=== PATIENT | male | born 1985 | race Caucasian/White ===

== ENCOUNTER 2023-10-11 10:27 | Inpatient (IN) ==
[2023-10-11 11:04] LABS: Basophils # (auto) 0.07 K/uL (0.00-0.20); Basophils % (auto) 0.8 %; Eosinophils # (auto) 0.17 K/uL (0.00-0.50); Eosinophils % (auto) 1.9 %; Hematocrit (blood only) 41.6 % (42.0-52.0); Hemoglobin 14.1 g/dl (14.0-18.0); Immature Granulocytes # (auto) 0.04 K/uL (0.01-0.20); Immature Granulocytes % (auto) 0.4 %; Lymphocytes # (auto) 1.71 K/uL (1.20-3.40); Lymphocytes % (auto) 18.9 %; Mean Corpuscular Hemoglobin 28.5 pg (25.0-34.0); Mean Corpuscular Hgb Conc 33.9 g/dL (32.0-36.0); Mean Corpuscular Volume 84.2 fL (80.0-100.0); Mean Platelet Volume 10.1 fL (9.4-12.4); Monocytes # (auto) 0.65 K/uL (0.11-0.59); Monocytes % (auto) 7.2 %; Neutrophils # (auto) 6.41 K/uL (1.40-6.50); Neutrophils % (auto) 70.8 %; Platelet Count 244 K/uL (130-400); RDW Coefficient of Variation 12.5 % (11.5-14.5); RDW Standard Deviation 37.5 fL (36.4-46.3); Red Blood Count 4.94 M/uL (4.70-6.10); White Blood Count 9.05 K/ul (4.8-10.8)
--- NOTE | 2023-10-11 11:09 | Emergency Department Note ---
Impression & Plan Chest pain, Bilateral pulmonary embolism ED Provider Note HISTORY OF PRESENT ILLNESS: Patient is a 38-year-old male presenting with left-sided chest pain. Patient reports that he developed left-sided chest pain yesterday. Describes the pain as a sharp sensation and "it feels like someone stabbing him with a knife." He states that he cannot take a deep breath without having excruciating amounts of pain. He is on Xarelto for previous history of DVT, but states that he missed 3 doses earlier this week secondary to not getting his prescription refilled in time. He states that he restarted his Xarelto as of yesterday. Denies any cough or fevers. Reports shortness of breath with the chest pain. ROS: as above PHYSICAL EXAM: Constitutional: Patient appears in no acute distress. HENT: Head: Normocephalic and atraumatic. Eyes: EOMI, PERRL Mouth/Throat: Mucous membranes moist. Neck: Trachea midline. Neck supple. Cardiovascular: RRR, No murmurs, rubs or gallops. Intact distal pulses. Pulmonary/Chest: No respiratory distress. Breath sounds clear and equal bilaterally. No wheezes or rales. Abdominal: Abdomen soft, no tenderness, rebound or guarding. Musculoskeletal: No edema, tenderness or deformity noted. Skin: Warm and dry. No rash, erythema, pallor or cyanosis Psychiatric: Appropriate mood and affect for situation. Neurological: Alert and keenly responsive. CN II-XII grossly intact, moving all extremities equally and fully. MDM: - Vitals signs showed tachycardia - History obtained via patient. Patient presents with sided chest pain. Patient reports he developed left-sided chest pain starting yesterday. He describes it as a sharp sensation. He reports it hurts when he takes a deep breath. He is on Xarelto for a previous history of DVT, but states he missed 3 doses earlier in this week. Denies any cough or fevers. - Chronic conditions affecting care: hx of DVT - Differential diagnoses include, but are not limited to: Acute coronary syndrome; pulmonary embolism; dissection; tension pneumothorax; esophageal rupture; pneumonia - Order placed for continuous cardiac monitoring. At this time, monitor showed rate of 94 bpm with normal sinus rhythm, per my interpretation. - External medical records reviewed. Orthopedic visit noted 02/14/2022 was reviewed. Patient had left rotator cuff surgical repair at that time. - EKG reviewed by myself showed normal sinus rhythm. Rate 93 bpm. QTc 410. No acute ischemic changes - Laboratory workup interpreted by myself showed normal WBC; stable electrolytes; normal troponin; elevated dimer (4130); normal lipase - CXR negative for pneumonia, per my interpretation - CT PE showed multiple bilateral segmental and subsegmental PEs. No evidence of right heart strain. Noted to have an infarct within the lingula - Heparin bolus and drip ordered - Discussion was had with social welfare administrator about patient's case and need for admission - Hospitalist consulted for admission - [facility] I provided 34 minutes of critical care time to this patient's care outside of billable procedures. ASSESSMENT AND PLAN: Diagnosis: chest pain; bilateral pulmonary emboli Plan: admit Past Med/Surg History Medical History (Updated 10/11/23 @ 13:30 by Candy Sparks MD) History of DVT (deep vein thrombosis) Heartburn occasional. no meds Deep vein thrombosis 09/2020 left leg, went off on his own, developed another DVT x2 in the left ankle. takes xarelto daily. follows with PCP. no further testing was done to rule out blood clotting disorder. Surgical History (Updated 06/28/22 @ 15:36 by Armand Pino DO) Status post left rotator cuff repair 10-20-21 L Shoulder Arthroscopy with Extensive Debridement, Acromioplasty and Rotator Cuff Repair(Left) - Braden Simmons DO. [facility] History of tonsillectomy Family History Mother Deep vein thrombosis Brother Deep vein thrombosis Denies family history of Ovarian cancer Prostate cancer Diabetes Myocardial infarction Breast cancer Colorectal cancer Hypertension Social History (Updated 06/28/22 @ 15:38 by Belinda Mojica LPN) Smoking Status: Never smoker Second Hand Exposure: No; Do You Dip or Chew Tobacco: No; Hx Alcohol Use: Yes Alcohol type: wine Alcohol Intake Frequency: Monthly or Less Hx Substance Use: No Preferred Language: Slovak Communication Ability: Effective Visual Impairment: Limited Hearing Ability: Normal Net Mender Required: No Beliefs That Will Affect Care: None marital status: Current Living Situation: Family current occupational status: employed 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; 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 How many Children do You have: 3 Feels Safe at Home: Yes Childhood Exposure to Second-Hand Smoke: No Diet: regular caffeine: Yes (coffee or soda) during the past year weight has: remained stable Dental Care, Regularly: Yes Physical Activity Frequency: Daily Seatbelt Use: sometimes Sunscreen Use: Yes Do you think of yourself as: straight/heterosexual Gender Identity: Male Assistive Devices: Glasses Allergies Allergies Allergy/AdvReac Type Severity Reaction Status Date / Time No Known Allergies Allergy Unknown Verified 10/11/23 12:30 Home Meds Home Medications Medication Instructions Recorded Confirmed acetaminophen 500 mg tablet 1,000 mg PO Q6H PRN Pain 10/11/23 10/11/23 (Tylenol Extra Strength) omeprazole magnesium 20 mg 20 mg PO DAILY PRN Acid Reflux 10/11/23 10/11/23 tablet,delayed release (Prilosec OTC) Previous Rx's Medication Instructions Recorded rivaroxaban 10 mg tablet (Xarelto) 10 mg PO DAILY #90 tabs 11/23/22 Results & Data (ED) Vital Signs Vital Signs - 24 hr 10/11/23 10:28 10/11/23 10:38 10/11/23 10:38 Temperature 36.9 C Temperature Source Temporal Artery Scan Pulse Rate 95 H Respiratory Rate 18 Respiratory Effort / Characteristics Non-Labored Spontaneous Short of Breath SOB on Exertion Respiratory Depth Normal Respiratory Pattern Regular Blood Pressure 138/65 Blood Pressure Mean 89 Pulse Oximetry 98 97 Oxygen Delivery Method Room Air Room Air Sepsis Recent Fever Within 48 Hours No Sepsis New/Unexplained Change in Mental Status N/A Sepsis Action Taken by Nursing No Action Required 10/11/23 10:39 10/11/23 10:40 10/11/23 13:11 Temperature Temperature Source Pulse Rate 97 H 89 94 H Respiratory Rate 22 18 Respiratory Effort / Characteristics Respiratory Depth Respiratory Pattern Blood Pressure 126/84 125/76 Blood Pressure Mean 98 92 Pulse Oximetry 99 97 Oxygen Delivery Method Room Air Room Air Sepsis Recent Fever Within 48 Hours Sepsis New/Unexplained Change in Mental Status Sepsis Action Taken by Nursing Laboratory Data 10/11/23 10:40 10/11/23 10:40 Lab Results 10/11/23 Range/Units 10:40 WBC 9.05 (4.8-10.8) K/ul RBC 4.94 (4.70-6.10) M/uL Hgb 14.1 (14.0-18.0) g/dl Hct 41.6 L (42.0-52.0) % MCV 84.2 (80.0-100.0) fL MCH 28.5 (25.0-34.0) pg MCHC 33.9 (32.0-36.0) g/dL RDW Std Deviation 37.5 (36.4-46.3) fL RDW Coeff of Sary 12.5 (11.5-14.5) % Plt Count 244 (130-400) K/uL MPV 10.1 (9.4-12.4) fL Immature Gran % (Auto) 0.4 % Neut % (Auto) 70.8 % Lymph % (Auto) 18.9 % [place] % (Auto) 7.2 % Eos % (Auto) 1.9 % Baso % (Auto) 0.8 % Neut # (Auto) 6.41 (1.40-6.50) K/uL Lymph # (Auto) 1.71 (1.20-3.40) K/uL [place] # (Auto) 0.65 H (0.11-0.59) K/uL Eos # (Auto) 0.17 (0.00-0.50) K/uL Baso # (Auto) 0.07 (0.00-0.20) K/uL Immature Gran # (Auto) 0.04 (0.01-0.20) K/uL D-Dimer 4130 H* (0-500) ug/L FEU Sodium 137 (136-145) mmol/L Potassium 3.9 (3.5-5.1) mmol/L Chloride 103 (98-107) mmol/L Carbon Dioxide 26 (21-32) mmol/L Anion Gap 8 (3-11) BUN 15 (6-23) mg/dl Creatinine 1.04 (0.6-1.4) mg/dl Est Cr Clr Drug Dosing Not Reportable Est GFR ( Amer) 106.6 ml/min Est GFR (Non-Af Amer) 91.9 ml/min BUN/Creatinine Ratio 14.4 (10-20) Glucose 88 (70-99(Fasting)) mg/dl Calcium 9.5 (8.6-10.3) mg/dl Total Bilirubin 0.9 (0.2-1.0) mg/dl AST 18 (13-39) U/L ALT 18 (7-52) U/L Alkaline Phosphatase 84 (34-104) U/L Troponin I High Sens 3.7 (0-20) pg/ml Total Protein 7.8 (6.0-8.3) gm/dl Albumin 4.5 (3.4-5.0) gm/dl Globulin 3.3 (2.5-4.0) gm/dl Albumin/Globulin Ratio 1.4 (0.9-2) Lipase 15 (11-82) U/L Administered Medications Heparin Sodium/Dextrose (Heparin Sodium/Dextrose) 25,000 units in 500 mls @ 32 mls/hr IV .[id number] [facility]; Protocol Stop: 11/10/23 12:59 Last Admin: 10/11/23 13:07 Dose: 1,600 units/hr, 32 mls/hr Documented By: GAMA Co-signed By: ROSARIO Discontinued Medications Heparin Sodium (Porcine) (Heparin Sod (Porcine) 1000 Unit/Ml) 7,000 units IV NOW ONE Stop: 10/11/23 13:16 Last Admin: 10/11/23 13:07 Dose: 7,000 units Documented By: GAMA Co-signed By: ROSARIO Ioversol (Optiray 320 125ml) 75 ml IV ONCE ONE Stop: 10/11/23 12:03 Last Admin: 10/11/23 12:09 Dose: 75 ml Documented By: ALEJANDRO Imaging Data Radiologist's Impression: Chest X-Ray 10/11/23 10:44 XR chest 1V portable CLINICAL HISTORY: Chest pain, nonspecific TECHNIQUE: Single frontal radiograph of the chest was obtained. Comparison: None available at the time of this dictation. FINDINGS: No lines and tubes are seen. The cardiomediastinal silhouette is normal. The lungs are clear. No evidence of pleural effusion or pneumothorax. IMPRESSION: No acute chest disease. ACT 112: Negative or not required by law. Electronically signed by: Garry Fontanez M.D. 10/11/2023 11:06 AM Chest CTA 10/11/23 11:49 CT ANGIOGRAPHY OF THE CHEST, PULMONARY EMBOLUS PROTOCOL CLINICAL HISTORY: Left-sided chest pain. Evaluate for pulmonary embolus. COMPARISON STUDY: Chest radiograph performed earlier today. TECHNIQUE: Following IV administration of 75 mL of Optiray, helical axial images of the chest were obtained utilizing the pulmonary embolus protocol. Maximal intensity projections and sagittal and coronal reformats were viewed on an independent 3D workstation. IV contrast was administered without complication. Automated exposure control was utilized for the study. A dose lowering technique was utilized adhering to the principles of ALARA. FINDINGS: There are multiple segmental and subsegmental pulmonary emboli within both lungs. There is an associated 3.7 x 2.8 cm subpleural lingular opacity consistent with a pulmonary infarct. A small left pleural effusion is noted. Lower lobe opacities favor atelectasis although additional pulmonary infarcts would be difficult to exclude. No saddle pulmonary embolus is identified. No CT evidence for right heart strain. Heart is mildly enlarged. There is no pericardial effusion. There is no thoracic lymphadenopathy. Multiple small solid noncalcified pulmonary nodules are present. These include a 6 mm lingular nodule on image 66 of 207, a 6 mm right lower lobe nodule on image 81 and a 4 mm right lower lobe nodule on image 77. Central airways are patent. IMPRESSION: 1. Multiple bilateral segmental and subsegmental pulmonary emboli. No CT evidence for right heart strain. 3.7 x 2.8 cm infarct within the lingula. Small left pleural effusion. 2. Multiple solid noncalcified pulmonary nodules which measure up to 6 mm. These are indeterminate and a follow-up chest CT in 6 months to ensure stability is recommended. ACT 112: Positive. There are findings on this exam that require communication between the performing entity and the patient following Patient Test Result Information Act ([place] Act 112) guidelines. Electronically signed by: Kurtis Garcia M.D. 10/11/2023 12:32 PM Discharge Plan Visit Data Chief Complaint: Chest Pain Stated Complaint: CHEST PAIN ED Provider: Candy Sparks Discharge Problem: Chest pain, Bilateral pulmonary embolism Forms Stand Alone Forms: [employer] Prescriptions Prescriptions: No Action Xarelto 10 mg tablet 10 mg PO DAILY Qty: 90 3RF acetaminophen [Tylenol Extra Strength] 500 mg Tablet 1,000 mg PO Q6H PRN (Reason: Pain) omeprazole magnesium [Prilosec OTC] 20 mg Tablet,Delayed Release (Dr/Ec) 20 mg PO DAILY PRN (Reason: Acid Reflux) Referrals Referrals: Armand Pino DO [Primary Care Provider] -
[2023-10-11 11:18] LABS: Alanine Aminotransferase 18 U/L (7-52); Albumin Globulin Ratio 1.4 (0.9-2); Albumin Level 4.5 gm/dl (3.4-5.0); Alkaline Phosphatase 84 U/L (34-104); Anion Gap 8 (3-11); Aspartate Aminotransferase 18 U/L (13-39); BUN Creatinine Ratio 14.4 (10-20); Bilirubin,Total 0.9 mg/dl (0.2-1.0); Blood Urea Nitrogen 15 mg/dl (6-23); Calcium 9.5 mg/dl (8.6-10.3); Carbon Dioxide 26 mmol/L (21-32); Chloride 103 mmol/L (98-107); Est GFR (African American) 106.6 ml/min; Est GFR (Non-African American) 91.9 ml/min; Globulin 3.3 gm/dl (2.5-4.0); Glucose 88 mg/dl (70-99(Fasting)); Lipase 15 U/L (11-82); Potassium 3.9 mmol/L (3.5-5.1); Sodium 137 mmol/L (136-145); Total Protein 7.8 gm/dl (6.0-8.3)
[2023-10-11 11:24] LABS: Troponin I High Sensitivity 3.7 pg/ml (0-20)
[2023-10-11 11:49] LABS: D Dimer 4130 ug/L FEU (0-500)
[2023-10-11] MEDS ORDERED: OPTIRAY 320 125ml IV ONE (12:02)
--- NOTE | 2023-10-11 12:35 | CT Scan Report ---
CT ANGIOGRAPHY OF THE CHEST, PULMONARY EMBOLUS PROTOCOL CLINICAL HISTORY: Left-sided chest pain. Evaluate for pulmonary embolus. COMPARISON STUDY: Chest radiograph performed earlier today. TECHNIQUE: Following IV administration of 75 mL of Optiray, helical axial images of the chest were ob tained utilizing the pulmonary embolus protocol. Maximal intensity projections and sagittal and letitia nal reformats were viewed on an independent 3D workstation. IV contrast was administered without com plication. Automated exposure control was utilized for the study. A dose lowering technique was uti lized adhering to the principles of ALARA. FINDINGS: There are multiple segmental and subsegmental pulmonary emboli within both lungs. There is an associated 3.7 x 2.8 cm subpleural lingular opacity consistent with a pulmonary infarct. A small left pleural effusion is noted. Lower lobe opacities favor atelectasis although additional pulmonary infarcts would be difficult to exclude. No saddle pulmonary embolus is identified. No CT evidence for right heart strain. Heart is mildly enlarged. There is no pericardial effusion. There is no thoracic lymphadenopathy. Multiple small solid noncalcified pulmonary nodules are present. These include a 6 mm lingular nodule on image 66 of 207, a 6 mm right lower lobe nodule on image 81 and a 4 mm right lo wer lobe nodule on image 77. Central airways are patent. IMPRESSION: 1. Multiple bilateral segmental and subsegmental pulmonary emboli. No CT evidence for right heart str ain. 3.7 x 2.8 cm infarct within the lingula. Small left pleural effusion. 2. Multiple solid noncalcified pulmonary nodules which measure up to 6 mm. These are indeterminate an d a follow-up chest CT in 6 months to ensure stability is recommended. ACT 112: Positive. There are findings on this exam that require communication between the performing entity and the patient following Patient Test Result Information Act ([place] Act 112) guidelines. Electronically signed by: Kurtis Garcia M.D. 10/11/2023 12:32 PM
[2023-10-11] MEDS ORDERED: Heparin IV Adult Wt-Based Standard w/ INITIAL Bolus Protocol IV STA (12:39)
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
[2023-10-11] MEDS ORDERED: HEPARIN SOD (PORCINE) 1000 UNIT/ML IV ONE ×2 (12:55→13:15)
[2023-10-11] MEDS ORDERED: HEPARIN SODIUM/DEXTROSE 25,000 UNITS/500 ML BAG IV SCH (13:00)
[2023-10-11 14:13] LABS: INR 1.1 (0.9-1.1); Partial Thromboplastin Ratio 1.3; Partial Thromboplastin Time 37 Seconds (21-31); Prothrombin Time 11.9 Seconds (9.0-12.0)
--- NOTE | 2023-10-11 14:29 | Electrocardiogram Report ---
Test Reason : Blood Pressure : / mmHG Vent. Rate : 093 BPM Atrial Rate : 093 BPM P-R Int : 164 ms QRS Dur : 072 ms QT Int : 330 ms P-R-T Axes : 051 008 026 degrees QTc Int : 410 ms Normal sinus rhythm Normal ECG No previous ECGs available Confirmed by Alejandro Grayson ([id number]) on 10/11/2023 2:29:46 PM Referred By: REFERRED SELF Confirmed By:Alejandro Grayson
[2023-10-11] MEDS ORDERED: ACETAMINOPHEN 325 MG TAB PO PRN (15:26)
--- OUTSIDE RECORDS SUMMARY | 2023-10-11 16:13 | External Medical Summary | Summary of Care ---
Author Name Unknown Organization [facility] Address [address] [place] [address] Phone [phone] Care Team Providers Care Entrepreneurship Program Director Name Role Phone Dior Davis MD Primary Care Provider [phone] Reason for Visit * Reason Onset Date Comments Order Request 09/21/2023 Encounter Details Date Type Department Care Team (Late st Contact Info) Description 09/21/2023 Telephone Orthopaedics, [place] [address] [place], [place] [id number] Christos Collins MD [address] [place] [address] Order Request Allergies No known active allergiesdocumented as of this encounter (statuses as of 09/24/2023) Medications Medication Sig Dispensed Refills Start Date End Date Status Rivaroxaban 10 MG Oral Tablet (Xarelto) Take 1 Tablet by mouth in the morning. 0 Active Carisoprodol 350 MG Oral Tablet (Soma) Take 1 Tablet by mouth 3 times a day as needed for Muscle spasms. 20 Tablet 0 09/03/2023 Active Additional Information Patient not taking.Reported on 09/18/2023 Docusate Sodium 100 MG Oral Capsule (Colace) Take 1 Capsule by mouth in the morning and 1 Capsule before bedtime. 10 Capsule 0 09/03/2023 Active Additional Information Patient not taking.Reported on 09/18/2023 oxyCODONE HCl 10 MG Oral Tablet (Roxicodone) Take 1 whole tablet by mouth every 6 hours as needed for severe pain (or take one-half tablet for moderate pain). 20 Tablet 0 09/03/2023 Active Additional Information Patient not taking.Reported on 09/18/2023 documented as of this encounter (statuses as of 09/24/2023) Active Problems Problem Noted Date Diagnosed Date Closed fracture of left distal tibia 08/30/2023 documented as of this encounter (statuses as of 09/24/2023) Social History Tobacco Use Types Packs/Day Years Used Date Smoking Tobacco: Never Smokeless Tobacco: Never Alcohol Use Standard Drinks/Week Comments Not Currently 0 (1 standard drink = 0.6 oz pur e alcohol) Sex and Gender Information Value Date Recorded Sex Assigned at Not on file Gender Identity Not on file Sexual Orientation Not on file Job Start Date Occupation Industry Not on file Not on file Not on file documented as of this encounter Functional Status Functional Status Response Date of Assess ment Do you have serious difficul ty walking or climbing stairs? (5 years old or older) No 08/30/2023 documented as of this encounter Miscellaneous Notes * Telephone Encounter - Alysia Benjamin RN - 09/24/2023 8:48 AM EST Handicp placard filled out and given to Bhakti. Please see if patient wants this mailed or want to pick it up. We do not order handicap scooters. If patient is not doing well with the crutches we can order him a walker. * Telephone Encounter - Sarita Nieves OSA - 09/21/2023 12:37 PM EST Pt calling asking if it would be possible to get handicap placard. Also asking for handicap scooterprescription. Please advise. documented in this encounter Plan of Treatment Upcoming Encounters Date Type Department Care Team (Late st Contact Info) Description 10/09/2023 7:45 AM EST Office Visit Orthopaedics, [address] [place] [address] Christos Collins MD [address] [place] [address] Health Maintenance Due Date Last Done Comments Hepatitis B (1 of 3 - 3-dose series) 1987 COVID-19 Vaccine (#1) 1987 Depression Screening 1999 HIV Screening 2002 Hepatitis C Screening 2005 DTaP,Tdap,and Td Vaccines (1 - Tdap) 2006 Influenza Vaccine (FLU shot) (#1) 2023 Diabetes Screening 09/03/2026 09/03/2023, 1 , 09/01/2023, Additional history exists GARDASIL-HPV IMMUNIZATION SERIES Aged Out No longer eligible based on patient's age to complete this topic MENINGOCOCCAL (MENACTRA/MENVEO) Aged Out No longer eligible based on patient's age to complete this topic Pneumococcal Vaccine: Pediatrics (0 to 5 Years) and At-Risk Patients (6 to 64 Years) Aged Out No longer eligible based on patient's age to complete this topic documented as of this encounter Medical Devices Implanted Type Area Esters And Emulsifiers Supervisor Device Identifier Shelf Expiration Date Model / Serial / Lot Screw T2 Alpha Lock 5x47.5mm - [id number] Implanted:Qty: 1 on 08/31/2023 by Christos Collins MD at [facility] [place] Left: Ankle JA : TRAUMA 04/04/2033 [id number] / / [id number] documented as of this encounter Advance Directives Latest Code Status on File Code Status Date Activated Date Inactivated Comments Full Code 08/30/2023 12:14 PM 09/03/2023 6:45 PM Th is order reflects the patients wishes and were consensually agreed upon. Question Answer Comments Discussion of Advance Directives occurred with: Patient Care Teams Entrepreneurship Program Director Relationship Specialty Start Date End Date Dior Davis MD [address] [place] [address] PCP - General Family Medicine 09/10/23 documented as of this encounter
--- OUTSIDE RECORDS SUMMARY | 2023-10-11 16:13 | External Medical Summary | Summary of Care ---
Author Name Unknown Organization [facility] Address [address] [place] [address] Phone [phone] Care Team Providers Care Cardiac Monitor Technician Name Role Phone Dior Davis MD Primary Care Provider [phone] Reason for Visit * Reason Onset Date Comments Order Request 09/21/2023 Encounter Details Date Type Department Care Team (Late st Contact Info) Description 09/21/2023 Telephone Orthopaedics, [place] [address], [place] [phone] Christos Collins MD [address] [place] [address] Order Request Allergies No known [...] encounter Miscellaneous Notes * Telephone Encounter - Bhakti Mai - 09/24/2023 11:27 AM EST Form mailed * Telephone Encounter - Sarita Nieves OSA - 09/24/2023 10:39 AM EST Pt would like to have the completed form mailed. [address] [place] [id number] Pt states he has a walker. [place] way [place] * Telephone Encounter - Alysia Benjamin RN [...] 10/09/2023 7:45 AM EST Office Visit Orthopaedics, [place] [address] [place] [address] Christos Collins MD [address] [place] [address] Health Maintenance Due Date Last Done Comments [...] this encounter Medical Devices Implanted Type Area Dog Groomer Device Identifier Shelf Expiration Date Model / Serial / Lot Screw T2 Alpha Lock 5x47.5mm - [id number] Implanted:Qty: 1 on 08/31/2023 by Christos Collins MD at [facility] Left: Ankle JA : TRAUMA 04/04/2033 [id number] / / [id number] documented as of this encounter Advance Directives Latest Code Status on File Code Status Date Activated Date Inactivated Comments Full Code 08/30/2023 12:14 PM 09/03/2023 6:45 PM Th is order reflects the patients wishes and were consensually agreed upon. Question Answer Comments Discussion of Advance Directives occurred with: Patient Care Teams Cardiac Monitor Technician Relationship Specialty Start Date End Date Dior Davis MD [address] [place] [address] [place] [id number] PCP - General Family Medicine 09/10/23 documented as of this encounter
--- OUTSIDE RECORDS SUMMARY | 2023-10-11 16:13 | External Medical Summary | Summary of Care ---
Author Name Unknown Organization [facility] Address [address] [place] [address] Phone [phone] Care Team Providers Care Ground Wirer Name Role Phone Dior Davis MD Primary Care Provider [phone] Reason for Referral * Evaluate & Treat - Unlimited Visits (Within 10 days (routine)) - Pending Review Specialty Diagnoses / Procedures Referred By Charleen szymanski Referred To Contact Physical Therapy / Physical Medicine And Rehab Diagnoses Closed fracture of distal end of left tibia, unspecified fracture morphology, initial encounter Pineda Gomes MD [address] [place] [address] Referral ID Status Reason Start Date Expiration Date Visits Requested Visits Authorized [id number] Pending Review Specialty Services Required 10/09/[phone] Question Answer Referral Priority Within 10 days (routine) Where should this appointment be scheduled? [facility] Comments Please see and evaluate patient. Patient is 6 weeks out from tibia fracture fixation Needs to work on gait training, aerobic conditioning, strengthening ankle, and knee ROM. May use elliptical and exercise bike He will be partial weight bearign at 30-40 lbs for the first week and may advance weight bearing 20 lbs each week. Goal to be WBAT in 4-6 weeks Reason for Visit * Reason Comments Follow Up Left tibia fracture Encounter Details Date Type Department Care Team (Late st Contact Info) Description 10/09/2023 7:45 AM EST Office Visit Orthopaedics, [place] [address] [place] [address] Christos Collins MD [address] [place] [address] Closed fracture of distal end of left tibia, unspecified fracture morphology, initial encounter* Allergies No known active allergiesdocumented as of this encounter (statuses as of 10/09/2023) Medications Medication Sig Dispensed Refills Start Date [...] as of this encounter (statuses as of 10/09/2023) Active Problems Problem Noted Date Diagnosed Date Closed fracture of left distal tibia 08/30/2023 documented as of this encounter (statuses as of 10/09/2023) Social History Tobacco Use Types Packs/Day Years Used Date Smoking Tobacco: Never Smokeless Tobacco: Never Tobacco Cessation:Counseling Given: Not Answered Alcohol Use Standard Drinks/Week Comments Yes 0 (1 standard drink = 0.6 oz pur e alcohol) soc Sex and Gender Information Value Date Recorded [...] No 08/30/2023 documented as of this encounter Progress Notes * Pineda Gomes MD - 10/09/2023 8:24 AM EST Please see Dr. Collins's dictation for documentation on this encounter. Pineda Gomes MD [phone] 10/09/2023 * Christos Collins MD - 10/09/2023 8:23 AM EST Aditya returns for follow-up. He is now about 6 weeks out from IM nailing of his distal 3rd comminuted tibial shaft fracture with an intra-articular distal split. Incisions are all well healed he hasabout 10 of plantar flexion 10-12 of dorsiflexion full extension of the knee flexion of the knee to about 120. We got new x-rays today which I viewed and interpreted. AP lateral of left tibia andfibula reveal a locked intramedullary nail for a comminuted distal 3rd tibial shaft fracture. In addition there are 2 anterior to posterior independent screws for intra-articular extension. There is no displacement the level of the joint alignment is unchanged early callus formation is noted in allhardware is intact. I think overall Aditya looks terrific we are going to write for him to begin partial weight-bearingadvancing to weight-bearing as tolerated over the next 4-6 weeks with aerobic conditioning strengthening and gait training. We will see him back in 6-8 weeks with follow-up radiographs AP lateral of the left tibia and fibula centered on the distal 1/3 documented in this encounter Plan of Treatment Upcoming Encounters Date Type Department Care Team (Late st Contact Info) Description 11/27/2023 7:30 AM EST Office Visit Orthopaedics, [place] [address] [place] [address] Christos Collins MD [address] [place] [address] Pending Results Name Type Priority Associated Diagnoses Date /Time XR TIB/FIB 2 VIEWS Medical Imaging Routine Closed fracture of distal end of left tibia, unspecified fracture morphology, initial encounter 10/09/2023 8:03 AM EST XR ANKLE 3 OR MORE VIEWS Medical Imaging Routine Closed fracture of distal end of left tibia, unspecified fracture morphology, initial encounter 10/09/2023 8:03 AM EST Scheduled Referrals Name Type Priority Associated Diagnoses Orde r Schedule PHYSICAL THERAPY REFERRAL OP Referral Within 10 days (routine) Closed fracture of distal end of left tibia, unspecified fracture morphology, initial encounter Ordered: 10/09/2023 Health Maintenance Due Date Last Done Comments [...] this encounter Medical Devices Implanted Type Area Financial Supervisor Device Identifier Shelf Expiration Date Model / Serial / Lot Screw T2 Alpha Lock 5x47.5mm - [id number] Implanted:Qty: 1 on 08/31/2023 by Christos Collins MD at [facility] Left: Ankle JA : TRAUMA 04/04/2033 2360-5047S / / [id number] documented as of this encounter Visit Diagnoses Diagnosis Closed fracture of distal end of left tibia, unspecified fracture morphology, initial encounter- Primary documented in this encounter Advance Directives Latest Code Status on File Code Status Date Activated Date Inactivated Comments Full Code 08/30/2023 12:14 PM 09/03/2023 6:45 PM Th is order reflects the patients wishes and were consensually agreed upon. Question Answer Comments Discussion of Advance Directives occurred with: Patient Care Teams Ground Wirer Relationship Specialty Start Date End Date Dior Davis MD [address] [place] [address] [place] [address] PCP - General Family Medicine 09/10/23 documented as of this encounter
--- OUTSIDE RECORDS SUMMARY | 2023-10-11 16:13 | External Medical Summary | Summary of Care ---
Author Name Unknown Organization [facility] Address [address] [place] [address] Phone [phone] Care Team Providers Care Sales And Events Coordinator Name Role Phone Dior Davis MD Primary Care Provider [phone] Reason for Visit * Reason Onset Date Comments Order Request 09/21/2023 Encounter Details Date Type Department Care Team (Late st Contact Info) Description 09/21/2023 Telephone Orthopaedics, [place] [address] [place], [place] [id number] Christos Collins MD [address] [place] [address] Order Request Allergies No known active allergiesdocumented as of this encounter (statuses as of 09/21/2023) Medications Medication Sig Dispensed Refills Start Date [...] as of this encounter (statuses as of 09/21/2023) Active Problems Problem Noted Date Diagnosed Date Closed fracture of left distal tibia 08/30/2023 documented as of this encounter (statuses as of 09/21/2023) Social History Tobacco Use Types Packs/Day Years [...] encounter Miscellaneous Notes * Telephone Encounter - Sarita Nieves OSA - 09/21/2023 12:37 PM EST Pt calling asking if it would be possible to get handicap placard. Also asking for handicap scooterprescription. Please advise. documented in this encounter Plan of Treatment Upcoming Encounters Date Type Department Care Team (Late st Contact Info) Description 10/09/2023 7:45 AM EST Office Visit Orthopaedics, [place] [address] [place] [address] Christos Collins MD [address] [place] [address] Health Maintenance Due Date Last Done Comments [...] this encounter Medical Devices Implanted Type Area Freelance Makeup Artist Device Identifier Shelf Expiration Date Model / Serial / Lot Screw T2 Alpha Lock 5x47.5mm - [id number] Implanted:Qty: 1 on 08/31/2023 by Christos Collins MD at [facility] Left: Ankle JA : TRAUMA 04/04/2033 2360-5047S / / [id number] documented as of this encounter Advance Directives Latest Code Status on File Code Status Date Activated Date Inactivated Comments Full Code 08/30/2023 12:14 PM 09/03/2023 6:45 PM Th is order reflects the patients wishes and were consensually agreed upon. Question Answer Comments Discussion of Advance Directives occurred with: Patient Care Teams Sales And Events Coordinator Relationship Specialty Start Date End Date Dior Davis MD [address] [place] [address] [place] [address] PCP - General Family Medicine 09/10/23 documented as of this encounter
--- OUTSIDE RECORDS SUMMARY | 2023-10-11 16:13 | External Medical Summary | Summary of Care ---
Author Name Unknown Organization [facility] Address [address] [place] [address] Phone [phone] Care Team Providers Care Production Control Technologist Name Role Phone Dior Davis MD Primary Care Provider [phone] Reason for Visit * Reason Onset Date Comments Hospital Follow-Up 09/10/2023 Encounter Details Date Type Department Care Team (Late st Contact Info) Description 09/10/2023 Telephone General Surgery, [place] [address], [place] [phone] Mariela Cortes RN [address] [place] [address] Hospital Follow-Up Allergies No known active allergiesdocumented as of this encounter (statuses as of 09/10/2023) Medications Medication Sig Dispensed Refills Start Date End Date Status Rivaroxaban 10 MG Oral Tablet (Xarelto) Take 1 Tablet by mouth in the morning. 0 Active Carisoprodol 350 MG Oral Tablet (Soma) Take 1 Tablet by mouth 3 times a day as needed for Muscle spasms. 20 Tablet 0 09/03/2023 Active Docusate Sodium 100 MG Oral Capsule (Colace) Take 1 Capsule by mouth in the morning and 1 Capsule before bedtime. 10 Capsule 0 09/03/2023 Active oxyCODONE HCl 10 MG Oral Tablet (Roxicodone) Take 1 whole tablet by mouth every 6 hours as needed for severe pain (or take one-half tablet for moderate pain). 20 Tablet 0 09/03/2023 Active documented as of this encounter (statuses as of 09/10/2023) Active Problems Problem Noted Date Diagnosed Date Closed fracture of left distal tibia 08/30/2023 documented as of this encounter (statuses as of 09/10/2023) Social History Tobacco Use Types Packs/Day Years [...] encounter Miscellaneous Notes * Telephone Encounter - Mariela Cortes RN - 09/10/2023 8:54 AM EST Patient returned my calls from last week. He is doing well, very little pain. He does get some random phantom type pains that come and go with no issues. He did have a slight mishap this am and fell onto the leg he injured. I provided him with the ortho clinic number to contact to discuss this and the fact that he cannot make the 09/18 appt. No other concerns at this time. Mariela Cortes RN, BSN, TCRN, CCRN-K Trauma C Unix Developer [facility] 09/10/2023 8:56 AM documented in this encounter Plan of Treatment Upcoming Encounters Date Type Department Care Team (Late st Contact Info) Description 09/18/2023 12:00 PM EST Office Visit Orthopaedics, [place] [address] [place] [address] Phillip Carmona PA-C [address] [place], [place] [phone] Health Maintenance Due Date Last Done Comments [...] this encounter Medical Devices Implanted Type Area Grain Merchandising Manager Device Identifier Shelf Expiration Date Model / Serial / Lot Screw T2 Alpha Lock 5x47.5mm - [id number] Implanted:Qty: 1 on 08/31/2023 by Christos Collins MD at [facility] Left: Ankle JA : TRAUMA 04/04/2033 2360-5047S / / [id number] documented as of this encounter Advance Directives Latest Code Status on File Code Status Date Activated Date Inactivated Comments Full Code 08/30/2023 12:14 PM 09/03/2023 6:45 PM Th is order reflects the patients wishes and were consensually agreed upon. Question Answer Comments Discussion of Advance Directives occurred with: Patient Care Teams Production Control Technologist Relationship Specialty Start Date End Date Dior Davis MD [address] [place], [place] [address] [address] PCP - General Family Medicine 09/10/23 documented as of this encounter
--- OUTSIDE RECORDS SUMMARY | 2023-10-11 16:13 | External Medical Summary | Summary of Care ---
Author Name Unknown Organization [facility] Address [address] [place] [address] Phone [phone] Care Team Providers Care Administrative Appeals Tribunal Member Name Role Phone Dior Davis MD Primary Care Provider [phone] Reason for Visit * Reason Onset Date Comments Hospital Follow-Up 09/10/2023 Advice 09/10/2023 Encounter Details Date Type Department Care Team (Late st Contact Info) Description 09/10/2023 Telephone General Surgery, [place] [address] [place], [place] [phone] Mariela Cortes RN [address] [place] [address] Hospital Follow-Up; Advice Allergies No known active allergiesdocumented as of this encounter (statuses as of 09/11/2023) Medications Medication Sig Dispensed Refills Start Date [...] as of this encounter (statuses as of 09/11/2023) Active Problems Problem Noted Date Diagnosed Date Closed fracture of left distal tibia 08/30/2023 documented as of this encounter (statuses as of 09/11/2023) Social History Tobacco Use Types Packs/Day Years [...] Telephone Encounter - Alysia Benjamin RN - 09/11/2023 7:39 AM EST It is too soon for patient to be schedule today. He needs to be at least 14 days post op to consider suture removal. He should keep his appointment on 09/18. If he cannot make arrangements to attend this appointment I will have figure out a different day to see him. * Telephone Encounter - Denise Feldman OSA - 09/10/2023 6:05 PM EST Patient called again to inquiry if an appt tomorrow is too soon, please give him a return call * Telephone Encounter - Lenka Chaney OSA - 09/10/2023 3:25 PM EST Pt states he has sx on 08/30, is scheduled to come in for stitches removal on 09/18 but is unable to make this appt. There are multiple openings tomorrow 09/11, with Phillip Carmona, pt is concerned however if this would be too soon for the stitches to come out or if that would be a possibility. Best call back number is [phone]. Thank you, Lenka Duron * Telephone Encounter - Mariela Cortes RN [...] Mariela Cortes RN, BSN, TCRN, CCRN-K Trauma Service Line Coordinator [facility] 09/10/2023 8:56 AM documented in this encounter Plan of Treatment Upcoming Encounters Date Type Department Care Team (Late st Contact Info) Description 09/18/2023 12:00 PM EST Office Visit Orthopaedics, [place] [address] [place] [address] Phillip Carmona PA-C [address] [place] [address] Health Maintenance Due Date Last Done Comments [...] this encounter Medical Devices Implanted Type Area Meter/Relay Technician Device Identifier Shelf Expiration Date Model / Serial / Lot Screw T2 Alpha Lock 5x47.5mm - [id number] Implanted:Qty: 1 on 08/31/2023 by Christos Collins MD at [place] [facility] Left: Ankle JA : TRAUMA 04/04/2033 2360-5047S / / [id number] documented as of this encounter Advance Directives Latest Code Status on File Code Status Date Activated Date Inactivated Comments Full Code 08/30/2023 12:14 PM 09/03/2023 6:45 PM Th is order reflects the patients wishes and were consensually agreed upon. Question Answer Comments Discussion of Advance Directives occurred with: Patient Care Teams Administrative Appeals Tribunal Member Relationship Specialty Start Date End Date Dior Davis MD [address] [place] [address] [place] [address] PCP - General Family Medicine 09/10/23 documented as of this encounter
--- OUTSIDE RECORDS SUMMARY | 2023-10-11 16:13 | External Medical Summary | Summary of Care ---
Author Name Unknown Organization [facility] Address [address] [place] [address] Phone [phone] Care Team Providers Care Waterproofing Supervisor Name Role Phone Dior Davis MD Primary Care Provider Reason for Visit * Reason Onset Date Comments Order Request 09/21/2023 Encounter Details Date Type Department Care Team (Late st Contact Info) Description 09/21/2023 Telephone Orthopaedics, [place] [address] [place], [place] [phone] Christos Collins MD [address] [place] [address] Order Request Allergies No known [...] like to have the completed form mailed. [facility] [place] [address] Pt states he has a walker. He [...] 10/09/2023 7:45 AM EST Office Visit Orthopaedics, [place] [address] [place] [address] Christos Collins MD [address] [place] [address] Health Maintenance Due Date Last Done Comments [...] this encounter Medical Devices Implanted Type Area Cooker Mechanic Device Identifier Shelf Expiration Date Model / Serial / Lot Screw T2 Alpha Lock 5x47.5mm - [id number] Implanted:Qty: 1 on 08/31/2023 by Christos Collins MD at [facility] Left: Ankle JA : TRAUMA 04/04/2033 2360-5047S / / [id number] documented as of this encounter Advance Directives Latest Code Status on File Code Status Date Activated Date Inactivated Comments Full Code 08/30/2023 12:14 PM 09/03/2023 6:45 PM Th is order reflects the patients wishes and were consensually agreed upon. Question Answer Comments Discussion of Advance Directives occurred with: Patient Care Teams Waterproofing Supervisor Relationship Specialty Start Date End Date Dior Davis MD [address] [place] [address] [place] [address] PCP - General Family Medicine 09/10/23 documented as of this encounter
--- OUTSIDE RECORDS SUMMARY | 2023-10-11 16:13 | External Medical Summary | Summary of Care ---
Author Name Unknown Organization [facility] Address [address] [place] [address] Phone [phone] Care Team Providers Care Sash Repairer Name Role Phone Dior Davis MD Primary Care Provider [phone] Reason for Visit * Reason Onset Date Comments Hospital Follow-Up 09/10/2023 Advice 09/10/2023 Encounter Details Date Type Department Care Team (Late st Contact Info) Description 09/10/2023 Telephone General Surgery, [place] [address] [place], [place] [phone] Mariela Cortes RN [address] [place] [address] Hospital Follow-Up; Advice Allergies No known active [...] encounter Miscellaneous Notes * Telephone Encounter - Denise Feldman OSA [...] a possibility. Best call back number is [phone]. Thank you, Lenka Duron * Telephone Encounter [...] Mariela Cortes RN, BSN, TCRN, CCRN-K Trauma Director Of Product Design [facility] 09/10/2023 8:56 AM documented in this encounter Plan of Treatment Upcoming Encounters Date Type Department Care Team (Late st Contact Info) Description 09/18/2023 12:00 PM EST Office Visit Orthopaedics, [place] [address] [place] [address] Phillip Carmona PA-C [address] [place] [address] Health Maintenance Due Date Last Done Comments [...] this encounter Medical Devices Implanted Type Area Mental Telepathist Device Identifier Shelf Expiration Date Model / Serial / Lot Screw T2 Alpha Lock 5x47.5mm - [id number] Implanted:Qty: 1 on 08/31/2023 by Christos Collins MD at [place] [facility] Left: Ankle JA : TRAUMA 04/04/2033 2360-5047S / / [id number] documented as of this encounter Advance Directives Latest Code Status on File Code Status Date Activated Date Inactivated Comments Full Code 08/30/2023 12:14 PM 09/03/2023 6:45 PM Th is order reflects the patients wishes and were consensually agreed upon. Question Answer Comments Discussion of Advance Directives occurred with: Patient Care Teams Sash Repairer Relationship Specialty Start Date End Date Dior Davis MD [address] [place] [address] [place] [id number] PCP - General Family Medicine 09/10/23 documented as of this encounter
--- OUTSIDE RECORDS SUMMARY | 2023-10-11 16:13 | External Medical Summary | Summary of Care ---
Author Name Unknown Organization [facility] Address [address] [place] [address] Phone [phone] Care Team Providers Care Woven Paper Hat Mender Name Role Phone Dior Davis MD Primary Care Provider [phone] Reason for Visit * Reason Comments Post-Op Left tibial fracture Encounter Details Date Type Department Care Team (Late st Contact Info) Description 09/18/2023 12:00 PM EST Office Visit Orthopaedics, [place] [address] [place] [address] Alexia Dumont PA-C [address] [place], [place] [phone] Closed fracture of distal end of left tibia, unspecified fracture morphology, initial encounter* Allergies No known active allergiesdocumented as of this encounter (statuses as of 09/19/2023) Medications Medication Sig Dispensed Refills Start Date [...] as of this encounter (statuses as of 09/19/2023) Active Problems Problem Noted Date Diagnosed Date Closed fracture of left distal tibia 08/30/2023 documented as of this encounter (statuses as of 09/19/2023) Social History Tobacco Use Types Packs/Day Years [...] as of this encounter Progress Notes * Alexia Dumont PA-C - 09/19/2023 9:08 AM EST [place]OPAEDIC [place] [address] Patient Name: Aditya Benito DATE: 09/18/2023 PROCEDURE: Operative fixation of posterior medial tibial plafond fracture and intramedullary nailing of left distal 3rd tibial shaft fracture on 08/[address] Collins DIAGNOSIS: S82.302A Closed fracture of distal end of left tibia, unspecified fracture morphology, initial encounter (primary encounter diagnosis) HPI: This is a pleasant 38-year-old gentleman who presents today 2 weeks status post the above, he is doing well. He is maintained his weight-bearing status, as well as his dressings. He is ambulating with the use of crutches. He has no complaints. General ROS: no fever or chills, no drainage from incision, no shortness of breath, no chest pain, no calf pain, no redness around incision Pain is as expected, and well controlled with acetaminophen. OE: VITALS: as above. GENERAL: Well-developed well-nourished RESP: normal respiratory effort EXTREMITIES: Focused exam of his left lower extremity reveals a warm well- perfused limb, moderate edema, sensation intact to light touch, palpable DP pulse, he is able to plantar flex and dorsiflex at the ankle. INCISION(S): well healed, healing. IMPRESSION: S/P above PLAN: F/U with AP Lat of his left tibia, as well as three-view of the ankle. We will plan to see him back in 4 weeks He will continue to be toe-touch weight-bearing Orthotics to place a Cam boot walker today which he may remove for gentle range of motion, sleep and hygiene CC: (1) Dior Davis MD (2) Self Encounter No. : [id number] (2) Self documented in this encounter Plan of Treatment Upcoming Encounters Date Type Department Care Team (Late st Contact Info) Description 10/09/2023 7:45 AM EST Office Visit Orthopaedics, [place] [address] [place] [address] Christos Collins MD [address] [place] [address] Health Maintenance Due Date Last Done Comments [...] this encounter Medical Devices Implanted Type Area Surgical Instrument Repair Specialist Device Identifier Shelf Expiration Date Model / Serial / Lot Screw T2 Alpha Lock 5x47.5mm - [id number] Implanted:Qty: 1 on 08/31/2023 by Christos Collins MD at [facility] Left: Ankle JA : TRAUMA 04/04/2033 2360-5047S / / [id number] documented as of this encounter Visit Diagnoses [...] Advance Directives occurred with: Patient Care Teams Woven Paper Hat Mender Relationship Specialty Start Date End Date Dior Davis MD [address] [facility] [place] [address] PCP - General Family Medicine 09/10/23 documented as of this encounter
--- OUTSIDE RECORDS SUMMARY | 2023-10-11 16:13 | External Medical Summary | Summary of Care ---
Author Name Unknown Organization [facility] Address [address] [place] [address] Phone [phone] Care Team Providers Care Pet Care Technician Name Role Phone Dior Davis MD Primary Care Provider [phone] Reason for Visit * Reason Onset Date Comments Hospital Follow-Up 09/10/2023 Advice 09/10/2023 Encounter Details Date Type Department Care Team (Late st Contact Info) Description 09/10/2023 Telephone General Surgery, [employer] [address] [place] [address], [place] [id number] Mariela Cortes RN [address] [place] [address] Hospital Follow-Up; Advice Allergies No known active [...] encounter Miscellaneous Notes * Telephone Encounter - Lenka Chaney OSA [...] a possibility. Best call back number is [phone]. Thank you, Lenka Duron * Telephone Encounter [...] Mariela Cortes RN, BSN, TCRN, CCRN-K Trauma Thermodynamics Professor [facility] 09/10/2023 8:56 AM documented in this encounter Plan of Treatment Upcoming Encounters Date Type Department Care Team (Late st Contact Info) Description 09/18/2023 12:00 PM EST Office Visit Orthopaedics, [employer] [address] [place] [address] Phillip Carmona PA-C [address] [place] [address] Health Maintenance Due Date Last Done Comments [...] this encounter Medical Devices Implanted Type Area Power Press Tender Device Identifier Shelf Expiration Date Model / Serial / Lot Screw T2 Alpha Lock 5x47.5mm - [id number] Implanted:Qty: 1 on 08/31/2023 by Christos Collins MD at OR [facility] Left: Ankle JA : TRAUMA 04/04/2033 [id number] / / [id number] documented as of this encounter Advance Directives Latest Code Status on File Code Status Date Activated Date Inactivated Comments Full Code 08/30/2023 12:14 PM 09/03/2023 6:45 PM Th is order reflects the patients wishes and were consensually agreed upon. Question Answer Comments Discussion of Advance Directives occurred with: Patient Care Teams Pet Care Technician Relationship Specialty Start Date End Date Dior Davis MD [address] [place], [place] [address] [address] PCP - General Family Medicine 09/10/23 documented as of this encounter
--- OUTSIDE RECORDS SUMMARY | 2023-10-11 16:13 | External Medical Summary | Summary of Care ---
Author Name Unknown Organization [facility] Address [address] [place] [address] Phone [phone] Care Team Providers Care Building Services Engineer Name Role Phone Dior Davis MD Primary Care Provider [phone] Encounter Details Date Type Department Care Team (Latest Contact Info) Description 10/09/2023 7:49 AM EST - 10/09/2023 11:59 PM EST Hospital Encounter Radiology, [place] [address] [place] [address] Arrived Discharge Disposition: Home - Self Care Allergies No known active allergiesdocumented as of this encounter (statuses as of 10/10/2023) Medications Medication Sig Dispensed Refills Start Date [...] as of this encounter (statuses as of 10/10/2023) Active Problems Problem Noted Date Diagnosed Date Closed fracture of left distal tibia 08/30/2023 documented as of this encounter (statuses as of 10/10/2023) Social History Tobacco Use Types Packs/Day Years Used Date Smoking Tobacco: Never Smokeless Tobacco: Never Alcohol Use Standard Drinks/Week Comments Yes 0 [...] No 08/30/2023 documented as of this encounter Plan of Treatment Upcoming Encounters Date Type Department Care Team (Late st Contact Info) Description 11/27/2023 7:30 AM EST Office Visit Orthopaedics, [place] [address] [place] [address] Christos Collins MD [address] [place] [address] Pending Results Name Type Priority Associated Diagnoses Date /Time XR TIB/FIB 2 VIEWS Medical Imaging Routine Closed fracture of distal end of left tibia, unspecified fracture morphology, initial encounter 10/09/2023 8:03 AM EST Health Maintenance Due Date Last Done Comments [...] this encounter Medical Devices Implanted Type Area Lab Animal Technician Device Identifier Shelf Expiration Date Model / Serial / Lot Screw T2 Alpha Lock 5x47.5mm - [id number] Implanted:Qty: 1 on 08/31/2023 by Christos Collins MD at [facility] Left: Ankle JA : TRAUMA 04/04/2033 [id number] / / [id number] documented as of this encounter Advance Directives Latest Code Status on File Code Status Date Activated Date Inactivated Comments Full Code 08/30/2023 12:14 PM 09/03/2023 6:45 PM Th is order reflects the patients wishes and were consensually agreed upon. Question Answer Comments Discussion of Advance Directives occurred with: Patient Care Teams Building Services Engineer Relationship Specialty Start Date End Date Dior Davis MD [address] [place] [address] [place] [id number] PCP - General Family Medicine 09/10/23 documented as of this encounter
--- OUTSIDE RECORDS SUMMARY | 2023-10-11 16:13 | External Medical Summary | Summary of Care ---
Author Name Unknown Organization [facility] Address [address] [place] [address] Phone [phone] Care Team Providers Care Manufacturing Operations Manager Name Role Phone Unavailable Primary Care Provider Unavailabl e Reason for Visit * Reason Onset Date Comments Hospital Follow-Up 09/07/2023 Encounter Details Date Type Department Care Team (Late st Contact Info) Description 09/07/2023 Telephone General Surgery, [place] [address] [place], [place] [phone] Mariela Cortes RN [address] [place] [address] Hospital Follow-Up Allergies No known active allergiesdocumented as of this encounter (statuses as of 09/07/2023) Medications Medication Sig Dispensed Refills Start Date End Date Status Rivaroxaban 10 MG Oral Tablet (Xarelto) Take 1 Tablet by mouth in the morning. 0 Active Acetaminophen 325 MG Oral Tablet (Tylenol) Take 3 Tablets by mouth in the morning and 3 Tablets at noon and 3 Tablets before bedtime. Do all this for 5 days. 45 Tablet 0 09/03/2023 09/08/2023 Active Carisoprodol 350 MG Oral Tablet (Soma) [...] as of this encounter (statuses as of 09/07/2023) Active Problems Problem Noted Date Diagnosed Date Closed fracture of left distal tibia 08/30/2023 documented as of this encounter (statuses as of 09/07/2023) Social History Tobacco Use Types Packs/Day Years [...] Telephone Encounter - Mariela Cortes RN - 09/07/2023 11:51 AM EDT Attempted to contact patient to discuss recent hospital stay. No answer, LVM. Mariela Cortes RN, BSN, TCRN, CCRN-K Trauma Emergency Care Attendant [facility] 09/07/2023 11:51 AM documented in this encounter Plan of Treatment Upcoming Encounters Date Type Department Care Team (Late st Contact Info) Description 09/18/2023 12:00 PM EST Office Visit Orthopaedics, [place] [address] [place] [address] Phillip Carmona PA-C [address] [place] [address] Health Maintenance Due Date Last Done Comments [...] this encounter Medical Devices Implanted Type Area Breaker Up Machine Operator Device Identifier Shelf Expiration Date Model / Serial / Lot Screw T2 Alpha Lock 5x47.5mm - [id number] Implanted:Qty: 1 on 08/31/2023 by Christos Collins MD [place] [facility] [place]: Ankle JA : TRAUMA 04/04/2033 [id number] / / [id number] documented as of this encounter Advance Directives Latest Code Status on File Code Status Date Activated Date Inactivated Comments Full Code 08/30/2023 12:14 PM 09/03/2023 6:45 PM Th is order reflects the patients wishes and were consensually agreed upon. Question Answer Comments Discussion of Advance Directives occurred with: Patient
--- OUTSIDE RECORDS SUMMARY | 2023-10-11 16:13 | External Medical Summary | Summary of Care ---
Author Name Unknown Organization [facility] Address [address] [place] [address] Phone [phone] Care Team Providers Care Stick Puller Name Role Phone Dior Davis MD Primary Care Provider [phone] Encounter Details Date Type Department Care Team (Late st Contact Info) Description 09/18/2023 1:00 PM EST Orders Only Orthotics, [place] [address] [place] [address] [facility] [address] [place] [address] Fracture of shaft of tibia [S82.209A]* Allergies No known active allergiesdocumented as of this encounter (statuses as of 09/18/2023) Medications Medication Sig Dispensed Refills Start Date [...] as of this encounter (statuses as of 09/18/2023) Active Problems Problem Noted Date Diagnosed Date Closed fracture of left distal tibia 08/30/2023 documented as of this encounter (statuses as of 09/18/2023) Social History Tobacco Use Types Packs/Day Years [...] as of this encounter Progress Notes * Martina Wood CFO - 09/18/2023 1:28 PM EST Pt was fit and delivered a large cam boot secondary to a left tibia shaft and plafond fracture as requested by Alysia Benjamin RN. The orthosis was inspected for structural integrity and mechanical laboratory technician guidelines were followed. Donning, doffing, precautions, and wearing instructions were provided verbally and written mechanical laboratory technician information was given to the Pt. Location: [facility] Accompanied by: himself Nursing staff informed: Yes CFO Eb 09/18/2023 1:30 PM documented in this encounter Plan of Treatment Upcoming Encounters Date Type Department Care Team (Late st Contact Info) Description 10/09/2023 7:45 AM EST Office Visit Orthopaedics, [place] [address] [place] [address] Christos Collins MD [address] [place] [address] Health Maintenance Due Date Last Done Comments [...] this encounter Medical Devices Implanted Type Area Hose Tubing Backer Device Identifier Shelf Expiration Date Model / Serial / Lot Screw T2 Alpha Lock 5x47.5mm - [id number] Implanted:Qty: 1 on 08/31/2023 by Christos Collins MD at OR [facility] Left: Ankle JA : TRAUMA 04/04/2033 [id number] / / [id number] documented as of this encounter Visit Diagnoses Diagnosis Fracture of shaft of tibia [S82.209A]- Primary Closed fracture of shaft of tibia documented in this encounter Advance Directives Latest Code Status on File Code Status Date Activated Date Inactivated Comments Full Code 08/30/2023 12:14 PM 09/03/2023 6:45 PM Th is order reflects the patients wishes and were consensually agreed upon. Question Answer Comments Discussion of Advance Directives occurred with: Patient Care Teams Stick Puller Relationship Specialty Start Date End Date Dior Davis MD [address] [place], [place] [address] [address] PCP - General Family Medicine 09/10/23 documented as of this encounter
--- OUTSIDE RECORDS SUMMARY | 2023-10-11 16:13 | External Medical Summary | Summary of Care ---
Author Name Unknown Organization [facility] Address [address] [place] [address] Phone [phone] Care Team Providers Care Merchandiser Seasonal Name Role Phone Dior Davis MD Primary Care Provider [phone] Encounter Details Date Type Department Care Team (Latest Contact Info) Description 10/09/2023 7:49 AM EST - 10/09/2023 11:59 PM EST Hospital Encounter Radiology, [place] [address] [place] [address] Arrived Discharge Disposition: Home - [...] 11/27/2023 7:30 AM EST Office Visit Orthopaedics, [place] [address] [place] [address] Christos Collins MD [address] [place] [address] Pending Results Name Type Priority Associated Diagnoses Date /Time XR ANKLE 3 OR MORE VIEWS Medical [...] this encounter Medical Devices Implanted Type Area Foreign Exchange Dealer Device Identifier Shelf Expiration Date Model / Serial / Lot Screw T2 Alpha Lock 5x47.5mm - [id number] Implanted:Qty: 1 on 08/31/2023 by Christos Collins MD at [facility] Left: Ankle JA : TRAUMA 04/04/2033 [id number] / / [id number] documented as of this encounter Advance Directives Latest Code Status on File Code Status Date Activated Date Inactivated Comments Full Code 08/30/2023 12:14 PM 09/03/2023 6:45 PM Th is order reflects the patients wishes and were consensually agreed upon. Question Answer Comments Discussion of Advance Directives occurred with: Patient Care Teams Merchandiser Seasonal Relationship Specialty Start Date End Date Dior Davis MD [address] [place] [address] [place] [address] PCP - General Family Medicine 09/10/23 documented as of this encounter
--- OUTSIDE RECORDS SUMMARY | 2023-10-11 16:13 | External Medical Summary | Summary of Care ---
Author Name Unknown Organization [facility] Address [address] [place] [address] Phone [phone] Care Team Providers Care Docent Coordinator Name Role Phone Unavailable Primary Care Provider Unavailabl e Reason for Visit * Reason Onset Date Comments Hospital Follow-Up 09/06/2023 Encounter Details Date Type Department Care Team (Late st Contact Info) Description 09/06/2023 Telephone General Surgery, [place] [address] [place], [place] [phone] Mariela Cortes RN [address] [place] [address] Hospital Follow-Up Allergies No known active allergiesdocumented as of this encounter (statuses as of 09/06/2023) Medications Medication Sig Dispensed Refills Start Date [...] as of this encounter (statuses as of 09/06/2023) Active Problems Problem Noted Date Diagnosed Date Closed fracture of left distal tibia 08/30/2023 documented as of this encounter (statuses as of 09/06/2023) Social History Tobacco Use Types Packs/Day Years [...] Telephone Encounter - Mariela Cortes RN - 09/06/2023 2:06 PM EDT Attempted to contact patient to discuss recent hospital stay. No answer, LVM. Mariela Cortes RN, BSN, TCRN, CCRN-K Trauma School Childcare Attendant [facility] 09/06/2023 2:07 PM documented in this encounter Plan of Treatment Upcoming Encounters Date Type Department Care Team (Late st Contact Info) Description 09/18/2023 12:00 PM EST Office Visit Orthopaedics, [place] [address] [place] [address] Phillip Carmona PA-C [address] [place] [address] Health Maintenance Due Date Last Done Comments [...] this encounter Medical Devices Implanted Type Area Strike On Machine Operator Device Identifier Shelf Expiration Date Model / Serial / Lot Screw T2 Alpha Lock 5x47.5mm - [id number] Implanted:Qty: 1 on 08/31/2023 by Christos Collins MD at OR [facility] [place] Left: Ankle JA : TRAUMA 04/04/2033 [id number] / / [id number] documented as of this encounter Advance Directives Latest Code Status on File Code Status Date Activated Date Inactivated Comments Full Code 08/30/2023 12:14 PM 09/03/2023 6:45 PM Th is order reflects the patients wishes and were consensually agreed upon. Question Answer Comments Discussion of Advance Directives occurred with: Patient
--- OUTSIDE RECORDS SUMMARY | 2023-10-11 16:14 | External Medical Summary ---
Author Name Unknown Address Unknown Organization [id number]:[facility] [place] [address] [place] [address] Laboratory Report Ordering Provider Test Date Status LORI BRICE 08/31/2023 16:32:00 Final Observation Date Value Abnormality Reference (Units ) Status BUN 08/31/2023 16:32:00 16 6-20 (mg/dL) Final Creatinine 08/31/2023 16:32:00 1.0 0.6-1.2 (mg/dL) Final Glomerular filtration rate/1.73 sq M.predicted [Volume Rate/Area] in Serum, Plasma or Blood by Creatinine-based formula (CKD-EPI) 08/31/2023 16:32:00 Final Glomerular filtration rate c ould not be calculated without patient sex information.
eGFR is calculated based on the CKD-EPI 2020 equation SODIUM 08/31/2023 16:32:00 137 135-146 (m mol/L) Final Potassium 08/31/2023 16:32:00 4.1 3.5-5.1 (m mol/L) Final Cl 08/31/2023 16:32:00 104 98-107 (mm ol/L) Final CO2 08/31/2023 16:32:00 22 22-32 (mmo l/L) Final Anion gap 08/31/2023 16:32:00 11 7-15 (mmol /L) Final Glucose 08/31/2023 16:32:00 110 70-120 (mg /dL) Final Calcium 08/31/2023 16:32:00 8.4 8.4-10.2 ( mg/dL) Final Performing Location [facility] [place] [address] [place] [address]
--- OUTSIDE RECORDS SUMMARY | 2023-10-11 16:14 | External Medical Summary ---
Author Name Unknown Address Unknown Organization K01:[facility] [place] [address] [place] [place] [address] Laboratory Report Ordering Provider Test Date Status AGUILAR MOORE 09/02/2023 04:41:00 Final Observation Date Value Abnormality Reference (Units ) Status Calcium.ionized [Moles/volume] in Serum or Plasma by Ion-selective membrane electrode (ISE) 09/02/2023 04:41:00 1.22 1.13-1.32 (mmol/L) Final This test was developed and its performance characteristics dtermined by [employer]. It has not been cleared or approved by the US Food and Drug Administration Performing Location [facility] [place] [address] [address] [place] [facility] [address]
--- OUTSIDE RECORDS SUMMARY | 2023-10-11 16:14 | External Medical Summary ---
Author Name Unknown Address Unknown Organization K01:[facility] [place] [facility] [address] [facility] [address] Laboratory Report Ordering Provider Test Date Status LORI BRICE 08/31/2023 16:32:00 Final Observation Date Value Abnormality Reference (Units ) Status WBC, Total 08/31/2023 16:32:00 8.28 4.00-10.80 (K/uL) Final RBC 08/31/2023 16:32:00 4.51 4.50-5.25 (M/uL) Final Hemoglobin 08/31/2023 16:32:00 13.3 Below low normal 14.0-16.8 (g/dL) Final HCT 08/31/2023 16:32:00 40.4 40.0-48.4 (%) Final MCV 08/31/2023 16:32:00 89.6 82.0-99.5 (fL) Final MCH 08/31/2023 16:32:00 29.5 27.0-34.0 (pg) Final MCHC 08/31/2023 16:32:00 32.9 32.0-36.0 (g/dL) Final RDW 08/31/2023 16:32:00 12.4 11.5-15.5 (%) Final Platelets 08/31/2023 16:32:00 185 140-400 (K/uL) Final MPV 08/31/2023 16:32:00 9.9 6.6-11.1 (fL) Final Nucleated erythrocytes/100 leukocytes [Ratio] in Blood by Automated count 08/31/2023 16:32:00 0 <=0 (/100 WBCs) Final Performing Location [facility] [place] [address] [facility] [address]
--- OUTSIDE RECORDS SUMMARY | 2023-10-11 16:14 | External Medical Summary ---
Author Name Unknown Address Unknown Organization K01[place] [place] [facility] [address] [facility] [address] Laboratory Report Ordering Provider Test Date Status AGUILAR MOORE 09/01/2023 04:38:00 Final Observation Date Value Abnormality Reference (Units ) Status WBC, Total 09/01/2023 04:38:00 9.70 4.00-10.80 (K/uL) Final RBC 09/01/2023 04:38:00 4.14 4.50-5.25 (M/uL) Final Hemoglobin 09/01/2023 04:38:00 12.3 Below low normal 14.0-16.8 (g/dL) Final HCT 09/01/2023 04:38:00 37.3 Below low normal 40.0-48.4 (%) Final MCV 09/01/2023 04:38:00 90.1 82.0-99.5 (fL) Final MCH 09/01/2023 04:38:00 29.7 27.0-34.0 (pg) Final MCHC 09/01/2023 04:38:00 33.0 32.0-36.0 (g/dL) Final RDW 09/01/2023 04:38:00 12.2 11.5-15.5 (%) Final Platelets 09/01/2023 04:38:00 183 140-400 (K/uL) Final MPV 09/01/2023 04:38:00 10.4 6.6-11.1 (fL) Final Nucleated erythrocytes/100 leukocytes [Ratio] in Blood by Automated count 09/01/2023 04:38:00 0 <=0 (/100 WBCs) Final Performing Location [facility] [place] [address] [place] [address]
--- OUTSIDE RECORDS SUMMARY | 2023-10-11 16:14 | External Medical Summary ---
Author Name Unknown Address Unknown Organization K01:LABORATORY [facility] [place] - [address] [place] [address] Laboratory Report Ordering Provider Test Date Status HIWOT MORALES 09/03/2023 09:15:00 Cassie l Observation Date Value Abnormality Reference (Units ) Status WBC, Total 09/03/2023 09:15:00 8.37 4.00-10.80 (K/uL) Final RBC 09/03/2023 09:15:00 4.15 4.50-5.25 (M/uL) Final Hemoglobin 09/03/2023 09:15:00 12.1 Below low normal 14.0-16.8 (g/dL) Final HCT 09/03/2023 09:15:00 37.7 Below low normal 40.0-48.4 (%) Final MCV 09/03/2023 09:15:00 90.8 82.0-99.5 (fL) Final MCH 09/03/2023 09:15:00 29.2 27.0-34.0 (pg) Final MCHC 09/03/2023 09:15:00 32.1 32.0-36.0 (g/dL) Final RDW 09/03/2023 09:15:00 12.2 11.5-15.5 (%) Final Platelets 09/03/2023 09:15:00 216 140-400 (K/uL) Final MPV 09/03/2023 09:15:00 10.4 6.6-11.1 (fL) Final Nucleated erythrocytes/100 leukocytes [Ratio] in Blood by Automated count 09/03/2023 09:15:00 0 <=0 (/100 WBCs) Final Performing Location LABORATORY [facility] [place] - [address] [place] [address]
--- OUTSIDE RECORDS SUMMARY | 2023-10-11 16:14 | External Medical Summary ---
Author Name Unknown Address Unknown Organization K01:[facility] [place] [facility] [address] [place] [address] Laboratory Report Ordering Provider Test Date Status AGUILAR MOORE 09/02/2023 04:41:00 Final Observation Date Value Abnormality Reference (Units ) Status WBC, Total 09/02/2023 04:41:00 6.83 4.00-10.80 (K/uL) Final RBC 09/02/2023 04:41:00 4.00 4.50-5.25 (M/uL) Final Hemoglobin 09/02/2023 04:41:00 11.8 Below low normal 14.0-16.8 (g/dL) Final HCT 09/02/2023 04:41:00 36.2 Below low normal 40.0-48.4 (%) Final MCV 09/02/2023 04:41:00 90.5 82.0-99.5 (fL) Final MCH 09/02/2023 04:41:00 29.5 27.0-34.0 (pg) Final MCHC 09/02/2023 04:41:00 32.6 32.0-36.0 (g/dL) Final RDW 09/02/2023 04:41:00 12.3 11.5-15.5 (%) Final Platelets 09/02/2023 04:41:00 180 140-400 (K/uL) Final MPV 09/02/2023 04:41:00 10.2 6.6-11.1 (fL) Final Nucleated erythrocytes/100 leukocytes [Ratio] in Blood by Automated count 09/02/2023 04:41:00 0 <=0 (/100 WBCs) Final Performing Location [facility] [place] [address] [place] [address]
--- OUTSIDE RECORDS SUMMARY | 2023-10-11 16:14 | External Medical Summary ---
Author Name Unknown Address Unknown Organization K01:[facility] [place] [address] [facility] [address] Laboratory Report Ordering Provider Test Date Status AGUILAR MOORE 09/03/2023 04:03:00 Final Observation Date Value Abnormality Reference (Units ) Status Calcium.ionized [Moles/volume] in Serum or Plasma by Ion-selective membrane electrode (ISE) 09/03/2023 04:03:00 1.25 1.13-1.32 (mmol/L) Final This test was developed and its performance characteristics dtermined by [employer]. It has not been cleared or approved by the [place] Food and Drug Administration Performing Location [facility] [place] [address] [address] [facility] [address]
--- OUTSIDE RECORDS SUMMARY | 2023-10-11 16:14 | External Medical Summary ---
Author Name Unknown Address Unknown Organization K01:LABORATORY [facility] [place] - [facility] [address] [place] [address] Laboratory Report Ordering Provider Test Date Status VALENTÍN CHOUDHURY 09/01/2023 14:11:00 Final Observation Date Value Abnormality Reference (Units ) Status WBC, Total 09/01/2023 14:11:00 8.40 4.00-10.80 (K/uL) Final RBC 09/01/2023 14:11:00 3.98 4.50-5.25 (M/uL) Final Hemoglobin 09/01/2023 14:11:00 11.8 Below low normal 14.0-16.8 (g/dL) Final HCT 09/01/2023 14:11:00 35.6 Below low normal 40.0-48.4 (%) Final MCV 09/01/2023 14:11:00 89.4 82.0-99.5 (fL) Final MCH 09/01/2023 14:11:00 29.6 27.0-34.0 (pg) Final MCHC 09/01/2023 14:11:00 33.1 32.0-36.0 (g/dL) Final RDW 09/01/2023 14:11:00 12.2 11.5-15.5 (%) Final Platelets 09/01/2023 14:11:00 196 140-400 (K/uL) Final MPV 09/01/2023 14:11:00 10.6 6.6-11.1 (fL) Final Nucleated erythrocytes/100 leukocytes [Ratio] in Blood by Automated count 09/01/2023 14:11:00 0 <=0 (/100 WBCs) Final Performing Location LABORATORY [facility] [place] - [address] [place] [address]
--- OUTSIDE RECORDS SUMMARY | 2023-10-11 16:14 | External Medical Summary ---
Author Name Unknown Address Unknown Organization K01:[facility]ORY [facility] [place] - [address] [place] [address] [place] [address] Laboratory Report Ordering Provider Test Date Status AGUILAR MOORE 09/01/2023 04:38:00 Final Observation Date Value Abnormality Reference (Units ) Status Phosphate 09/01/2023 04:38:00 2.7 2.5-4.8 (m g/dL) Final Performing Location LABORATORY [facility] - [address] [place] [address]
--- OUTSIDE RECORDS SUMMARY | 2023-10-11 16:14 | External Medical Summary ---
Author Name Unknown Address Unknown Organization [id number]:[facility] [place] [address] [facility] [address] Laboratory Report Ordering Provider Test Date Status AGUILAR MOORE 09/01/2023 04:38:00 Final Observation Date Value Abnormality Reference (Units ) Status Calcium.ionized [Moles/volume] in Serum or Plasma by Ion-selective membrane electrode (ISE) 09/01/2023 04:38:00 1.18 1.13-1.32 (mmol/L) Final This test was developed and its performance characteristics dtermined by [employer]. It has not been cleared or approved by the [place] Food and Drug Administration Performing Location [facility] [place] [address] [address] [facility] [address]
--- OUTSIDE RECORDS SUMMARY | 2023-10-11 16:14 | External Medical Summary ---
Author Name Unknown Address Unknown Organization [id number]:[facility] [place] [address] [place] [address] Laboratory Report Ordering Provider Test Date Status AGUILAR MOORE 09/03/2023 04:03:00 Final Observation Date Value Abnormality Reference (Units ) Status BUN 09/03/2023 04:03:00 11 6-20 (mg/dL) Final Creatinine 09/03/2023 04:03:00 1.0 0.6-1.2 (mg/dL) Final Glomerular filtration rate/1.73 sq M.predicted [Volume Rate/Area] in Serum, Plasma or Blood by Creatinine-based formula (CKD-EPI) 09/03/2023 04:03:00 >90 >=60 (mL/min) Final eGFR is calculated based on the CKD-EPI 2020 equation SODIUM 09/03/2023 04:03:00 138 135-146 (m mol/L) Final Potassium 09/03/2023 04:03:00 4.3 3.5-5.1 (m mol/L) Final Cl 09/03/2023 04:03:00 103 98-107 (mm ol/L) Final CO2 09/03/2023 04:03:00 25 22-32 (mmo l/L) Final Anion gap 09/03/2023 04:03:00 10 7-15 (mmol /L) Final Glucose 09/03/2023 04:03:00 97 70-120 (mg /dL) Final Calcium 09/03/2023 04:03:00 8.8 8.4-10.2 ( mg/dL) Final Performing Location [facility] [place] [address] [place] [address]
--- OUTSIDE RECORDS SUMMARY | 2023-10-11 16:14 | External Medical Summary ---
Author Name Unknown Address Unknown Organization [id number]:LABORATORY [facility] [place] - [address] [place] [id number] Laboratory Report Ordering Provider Test Date Status KATHYONURSAL 09/02/2023 17:07:51 Final Observation Date Value Abnormality Reference (Units) Status Bacteria identified in Specimen by Culture 09/02/2023 17:07:51 No significant growth Final Test: Culture, Urine, Quanti tative
Specimen Source: Urine, Clean Catch
Specimen Type: Urine
Specimen Date: 09/02/2023 5:07 PM
Result Date: 09/03/2023 2:16 PM
Result Status: Final result
Resulting Lab: LAB[facility]ATORY [facility] [place]
[address]
[place] [id number]

CULTURE

No significant growth

null Performing Location LABORATORY [facility] [place] - [address] [facility] [address]
--- OUTSIDE RECORDS SUMMARY | 2023-10-11 16:14 | External Medical Summary ---
Author Name Unknown Address Unknown Organization [id number]:LABORATORY [facility] [place] - [address] [place] [address] Laboratory Report Ordering Provider Test Date Status AGUILAR MOORE 09/02/2023 04:41:00 Final Observation Date Value Abnormality Reference (Units ) Status BUN 09/02/2023 04:41:00 14 6-20 (mg/dL) Final Creatinine 09/02/2023 04:41:00 1.0 0.6-1.2 (mg/dL) Final Glomerular filtration rate/1.73 sq M.predicted [Volume Rate/Area] in Serum, Plasma or Blood by Creatinine-based formula (CKD-EPI) 09/02/2023 04:41:00 >90 >=60 (mL/min) Final eGFR is calculated based on the CKD-EPI 2020 equation SODIUM 09/02/2023 04:41:00 139 135-146 (m mol/L) Final Potassium 09/02/2023 04:41:00 4.2 3.5-5.1 (m mol/L) Final Cl 09/02/2023 04:41:00 104 98-107 (mm ol/L) Final CO2 09/02/2023 04:41:00 25 22-32 (mmo l/L) Final Anion gap 09/02/2023 04:41:00 10 7-15 (mmol /L) Final Glucose 09/02/2023 04:41:00 96 70-120 (mg /dL) Final Calcium 09/02/2023 04:41:00 8.5 8.4-10.2 ( mg/dL) Final Performing Location LAB[facility]ATORY [facility] [place] - [address] [place] [address]
--- OUTSIDE RECORDS SUMMARY | 2023-10-11 16:14 | External Medical Summary ---
Author Name Unknown Address Unknown Organization K01:LABORATORY [facility] [place] - [facility] [address] [facility] [address] Laboratory Report Ordering Provider Test Date Status AGUILAR MOORE 09/01/2023 04:38:00 Final Observation Date Value Abnormality Reference (Units ) Status BUN 09/01/2023 04:38:00 15 6-20 (mg/dL) Final Creatinine 09/01/2023 04:38:00 1.0 0.6-1.2 (mg/dL) Final Glomerular filtration rate/1.73 sq M.predicted [Volume Rate/Area] in Serum, Plasma or Blood by Creatinine-based formula (CKD-EPI) 09/01/2023 04:38:00 >90 >=60 (mL/min) Final eGFR is calculated based on the CKD-EPI 2020 equation SODIUM 09/01/2023 04:38:00 135 135-146 (m mol/L) Final Potassium 09/01/2023 04:38:00 3.9 3.5-5.1 (m mol/L) Final Cl 09/01/2023 04:38:00 103 98-107 (mm ol/L) Final CO2 09/01/2023 04:38:00 23 22-32 (mmo l/L) Final Anion gap 09/01/2023 04:38:00 9 7-15 (mmol /L) Final Glucose 09/01/2023 04:38:00 103 70-120 (mg /dL) Final Calcium 09/01/2023 04:38:00 8.5 8.4-10.2 ( mg/dL) Final Performing Location LABORATORY [facility] [place] - [address] [facility] [address]
--- OUTSIDE RECORDS SUMMARY | 2023-10-11 16:14 | External Medical Summary ---
Author Name Unknown Address Unknown Organization K01:LABORATORY [facility] [place] - [address] [place] [address] Laboratory Report Ordering Provider Test Date Status AGUILAR MOORE 09/02/2023 04:41:00 Final Observation Date Value Abnormality Reference (Units ) Status Magnesium 09/02/2023 04:41:00 2.0 1.5-2.6 (m g/dL) Final Performing Location LABORATORY [facility] - [address] [place] [address]
--- OUTSIDE RECORDS SUMMARY | 2023-10-11 16:14 | External Medical Summary ---
Author Name Unknown Address Unknown Organization K01:LAB[facility]ATORY [facility] - [address] [place] [address] Laboratory Report Ordering Provider Test Date Status AGUILAR MOORE 09/02/2023 04:41:00 Final Observation Date Value Abnormality Reference (Units ) Status Phosphate 09/02/2023 04:41:00 2.6 2.5-4.8 (m g/dL) Final Performing Location LABORATORY [facility] - [address] [place] [address]
--- OUTSIDE RECORDS SUMMARY | 2023-10-11 16:14 | External Medical Summary ---
Author Name Unknown Address Unknown Organization K01:LABORATORY [facility] [place] - [address] [place] [address] Laboratory Report Ordering Provider Test Date Status AGUILAR MOORE 09/03/2023 04:03:00 Final Observation Date Value Abnormality Reference (Units ) Status Magnesium 09/03/2023 04:03:00 2.1 1.5-2.6 (m g/dL) Final Performing Location LABORATORY [facility] - [address] [place] [address]
--- OUTSIDE RECORDS SUMMARY | 2023-10-11 16:14 | External Medical Summary | Summary of Care ---
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 are provided. Thin-section CT angiography of the neck was then performed. CPR and 3D reconstructions were generated on a separate workstation. COMPARISON None available. Anonymous temporary demographics applied for emergent case. FINDINGS CT HEAD: No acute intracranial hemorrhage or calvarial fracture. There is no territorial transcortical infarct. No hydrocephalus, downward herniation, midline shift, mass effect or extra-axial fluid collections are demonstrated. Overall brain is normal in volume and morphology with expected size and configuration of the ventricles, basilar cisterns and extra axial CSF spaces. Unremarkable orbits. Tympanomastoid cavities are well aerated. CT CERVICAL SPINE: Alignment is anatomic, with preserved lordosis. No acute fracture deformity or traumatic subluxation is demonstrated. Vertebral body heights are maintained. No discernable epidural hematoma. Prevertebral soft tissues are not thickened. There are mild multilevel degenerative changes without significant spinal canal stenosis or neural foraminal narrowing. CTA NECK: No evidence of traumatic blunt cerebrovascular injury, including dissection. Normal anatomic branching of the great vessels from the aortic arch. No significant stenosis of the arch and great vessel origins. The common carotids, bifurcations, and internal cervical carotid arteries are patent. External carotid arteries are patent. Pronounced tortuosity of the distal cervical ICAs. No significant vertebral artery ostial stenosis is demonstrated, and the extracranial portions are patent throughout the neck. Anatomic variant prolonged right V1 extraforaminal course. Cervical soft tissues are grossly unremarkable without suspicious mass or lymphadenopathy. The paranasal sinuses are clear. IMPRESSION IMPRESSION CT HEAD: No acute intracranial hemorrhage or calvarial fracture. CT CERVICAL SPINE: No acute fracture deformity or traumatic subluxation. CTA NECK: No evidence of traumatic blunt cerebrovascular injury, including dissection. CT CHEST/ABDOMEN/PELVIS WITH IV CONTRAST WITHOUT ORAL CONTRAST Final Result EXAM EXAM: CT CHEST/ABDOMEN/PELVIS WITH IV CONTRAST WITHOUT ORAL CONTRAST DATE TIME: 08/30/2023 12:07 pm TECHNIQUE Oral Contrast: Not administered. IV Contrast: Administered. HISTORY trauma COMPARISON None. Patient is a trauma number at the time of dictation. FINDINGS LINES AND DEVICES: None. CHEST: LUNGS: 6 mm right lower lobe pulmonary nodule solid. Solid 5 mm nodule right upper lobe. 3 mm nodule left upper lobe. Several other smaller nodules annotated on series 6. Dependent atelectasis. LARGE AIRWAYS: Patent. PLEURA: No pleural effusion. CARDIOVASCULAR: No pericardial effusion.Central pulmonary arteries are patent. Normal caliber aorta.. LYMPH NODES: Not enlarged. ESOPHAGUS: Nondistended. CHEST WALL/SOFT TISSUES: Within normal limits. ABDOMEN/PELVIS: LIVER: Within normal limits. BILE DUCTS: Within normal limits. GALLBLADDER: Within normal limits. PANCREAS: Within normal limits. SPLEEN: Within normal limits. Small splenules. ADRENALS: Within normal limits. KIDNEYS/URETERS: Too small to characterize hypodense lesion right lower pole is probably a cyst. BOWEL: Not dilated. Scattered colonic diverticula without focal inflammation. Normal appendix. BLADDER: Partially distended. REPRODUCTIVE ORGANS: Within normal limits. LYMPH NODES: Not enlarged. Prominent right lower quadrant mesenteric lymph nodes are likely reactive. VESSELS: No abdominal aortic aneurysm. PERITONEUM/RETROPERITONEUM: No ascites, free air, or fluid collections. ABDOMINAL WALL/SOFT TISSUES: Within normal limits. BONES: Lumbosacral transitional vertebral body with bilateral pseudoarticulation. IMPRESSION IMPRESSION 1. No acute traumatic injury identified in the chest abdomen pelvis. 2. Multiple pulmonary nodules measuring up to 6 mm. Follow-up chest CT in 6-12 months. 3. Other findings as above. XR CHEST 1 VIEW Final Result EXAM XR CHEST 1 VIEW - 08/30/2023 11:58 am HISTORY trauma COMPARISON None. Patient is a trauma number at the time of dictation. TECHNIQUE AP view of the chest. FINDINGS Support apparatus: None. No specific consolidations, pleural effusion or pneumothorax. Prominent mediastinal silhouette likely vasculature. Pulmonary vasculature likely within normal limits. IMPRESSION IMPRESSION No acute findings. CT to follow. XR PELVIS 1 VIEW CONSULTS ORDERED: ORTHOPAEDICS CONSULT IP ADULT PHYSICAL THERAPY CONSULT IP ADULT OCCUPATIONAL THERAPY CONSULT IP ANTI-COAGULATION CONSULT IP REFERRING PHYSICIAN: Ref: [id number]] NO STREET ADDRESS AVAILABLE None (office) None (fax) PRIMARY CARE PROVIDER: PCP: No primary care provider on file. No primary physician on file. None (office) None (fax) Note: To contact a physician responsible for this patients hospital care, please call [facility] [phone]. documented in this encounter Discharge Instructions * Discharge Instr - AVS* Rebeca Sinclair PA-C - 09/03/2023 11:04 AM EDT Discharge Date: 09/03/23 For questions related to your Orthopedic injuries you may contact [facility] directly at during normal business hours. The information below provides you with the instructions and the list of medications you need to betaking following discharge from the hospital. If you have any questions, please ask before leaving.Please carry this letter with you when you see your doctor in the clinic. If you have questions, you can reach us at the numbers above. Brief summary of your inpatient care: Mr. Benito was admitted on 08/30/23 after sustaining the following injury after a wedding tent fell onto him. Patient Active Problem List Diagnosis Code Closed fracture of left distal tibia He was evaluated by Orthopedics and underwent the surgery listed below. Post operatively he was monitored closely. His prior to hospitalization anticoagulation was restarted and his blood count was monitored to ensure stability. He was seen by PT/OT and was cleared to return home on 09/03/23. Operations & Procedures: 1.) Operative fixation of posteromedial tibial plafond fracture 2.) Intramedullary nailing of left distal third tibial shaft fracture by Dr. Collins on OR date: 08/31/23. Complications: none significant Advance Directive Documented: Advance Directive Does the Patient have an Advance Directive? No Diet: Normal diet Activity: Lower Left Extremity: toe touch weight bearing - OOB with assist, keep splint in place Driving: Do not drive until you are cleared by Orthopedics to resume full activity with the left leg Date you may return to work or school: Based on further instruction reviewed by surgeon after follow up visit. See your primary care physician (No primary care provider on file.) in 2 week(s). Special Instructions: Orthopedic DISCHARGE INSTRUCTIONS Weight bearing left lower extremity (LLE): partial weight bearing TOE TOUCH WEIGHT BEARING. Wound: Keep clean and dry. Change dressing as needed or reinforce dressing as needed. No tub soaking. Please do not use ointments or topical products on wound, please do not pick or scratch at incision. Please contact the surgical team/office [facility] first with any concerns directly related to surgery (redness, bleeding, large amount of drainage at the incision site. Pain medication at time of discharge: Tylenol (acetaminophen): non-opioid analgesic -Take 650 mg - 975 mg by mouth every 8 hours for 5 days then take 650 mg or 975 mg every 6 hours asneeded for pain OxyIR (oxycodone): narcotic pain medication -10 mg by mouth every 6 hours NEEDED for pain, severe -5 mg by mouth every 4 hours NEEDED for pain, moderate Carisoprodol (soma): muscle relaxer -Take 350 mg every 8 hours as needed for muscle spasm pain You have been given a short term supply of your prescription pain medication. If you require the use of prescription pain medications for greater than 5 days, please call the Trauma Surgery department to discuss if refills of these medications are appropriate. You should take these prescription pain medications only as directed. Using prescription pain medication inappropriately is associated with risks such as addiction, respiratory depression, and even . These medications should be only used when needed for moderate to severe pain, and should be discontinued as soon as possible. Do not take these medications with alcohol, street drugs, or any other drugs that cause sleepiness. These medications can negatively affect your decision making ability, and impair your ability to operate heavy machinery or drive a vehicle. You are NOT cleared to drive while taking prescription pain medications. You must be off all prescription pain medication for before you are cleared to drive. Constipation You have been given stool softeners during your hospital stay because surgery, decreased mobility, and narcotic pain medication may cause constipation. We recommend you continue these after dischargeas needed for regular bowel function. You may take Colace 100 2 x daily and add Miralax in additionto colace daily, as needed for regular bowel function. Seek Medical attention with any of the following symptoms: - Fever higher than 101 degrees Fahrenheit - Severe pain not relieved by pain medication - Sudden change or significantly worsening of pain at injury site - New or worsening shortness of breath or chest pain - Persistent nausea and vomiting - Excessive bleeding, swelling, redness, or drainage from any incisions, abrasions or lacerations documented in this encounter Progress Notes * Kade Seo MD - 09/03/2023 4:58 AM EDT PROGRESS NOTE - Trauma Surgery [facility] [id number] Name: [facility] TRAUMA Location: [facility] B[facility]/A Date: 09/03/2023 Time: 4:58 AM HOSPITAL DAY#: 4 ROUNDING SURGEON: Dr. Silva ADMISSION DATE: 08/30/2023 OPERATIONS / PROCEDURES: Dr. Collins: 08/31/23 1.) Operative fixation of posteromedial tibial plafond fracture 2.) Intramedullary nailing of left distal third tibial shaft fracture INJURY COMPLEX: Active Problems: Closed fracture of left distal tibia (POA: Unknown) POA = Present On Admission INTERIM HISTORY (LAST 24 HOURS): Patient reports that his pain is well controlled. He has been up and moving out of bed. He states he is tolerating PO intake well. He has been voiding without issue. He denies any fever, chills, numbness or tingling in leg, no chest pain or shortness of breath. PHYSICAL EXAMINATION: Most Recent Vital Signs: BP: 116 mmHg/72 mmHg (09/03/23 1028) Pulse: 100 (09/03/23 1028) Temp: 37.39 C (09/03/23 1028) Resp: 18 (09/03/23 1028) SpO2: 94 % (09/03/23 1028) SpO2: 94 % (09/03/23 1028) Rhythm: normal sinus Vital Signs Last 24 Hours: Systolic BP: Most Recent Systolic BP Av.8 mmHg Min: 114 mmHg Max: 138 mmHg Temperature: Most Recent Temperature Av.3 C Min: 37.11 C Max: 37.61 C Pulse: Pulse Av Min: 81 Max: 94 Respirations: Resp Av Min: 18 Max: 18 SpO2: SpO2 Av.6 % Min: 95 % Max: 99 % Pain Assessment (0-10): 3 Intake/Output Summary (Last 24 hours) at 09/03/2023 1147 Last data filed at 09/03/2023 0611 Gross per 24 hour Intake 370 ml Output -- Net 370 ml Head: normocephalic / atraumatic Eyes: pupils 2 mm, bilaterally reactive to light, extraocular muscles intact ENT: tympanic membranes bilaterally clear, oropharynx clear Neck: supple, non-tender, trachea midline Respiratory: clear to auscultation bilaterally Cardiovascular: regular rate and rhythm, palpable peripheral pulses present Abdomen: soft, nontender, nondistended Back: no tenderness across thoracic / lumbar spine Pelvis: non-tender, stable to anterior-posterior/lateral compression Rectal: deferred Genitourinary: normal male genitalia Musculoskeletal: LLE splinted and covered in RADHA wrap. Able to wiggle toes, WWP. SILT Skin: grossly intact Neurologic: alert and oriented x3 DEVICES Aly: no Tracheostomy: no NGT/OGT: no PEG: no Chest Tube(s): no Central Venous Catheter: no PICC Line(s): no TEDs/SCDs: yes, to uninjured leg IVC Filter: no Cervical Collar: no Thoracolumbar Fixation: no DIET: regular diet ACTIVITY LEVEL: as tolerated ALLERGIES Patient has no known allergies. LABORATORIES Labs reviewed as indicated below: CBC Lab results within last 7 days (see chart for full results) Units 09/03/23 0915 09/02/23 0441 09/01/23 1411 WBC K/uL 8.37 6.83 8.40 HGB g/dL 12.1* 11.8* 11.8* HCT % 37.7* 36.2* 35.6* PLT K/uL 216 180 196 BMP Lab results within last 7 days (see chart for full results) Units 09/03/23 0403 09/02/23 0441 09/01/23 0438 Sodium mmol/L 138 139 135 Potassium mmol/L 4.3 4.2 3.9 Chloride mmol/L 103 104 103 CO2 mmol/L 25 25 23 BUN mg/dL 11 14 15 Creatinine mg/dL 1.0 1.0 1.0 Glucose mg/dL 97 96 103 CA, Mg, Phos Lab results within last 7 days (see chart for full results) Units 09/03/23 0403 09/02/23 0441 09/01/23 0438 Calcium mg/dL 8.8 8.5 8.5 Magnesium mg/dL 2.1 2.0 2.2 Phosphorus mg/dL 3.3 2.6 2.7 CULTURES / SENSITIVITIES none RADIOGRAPHIC STUDIES No imaging results in the last 24 hours ASSESSMENT/PLAN Closed left distal tibia spiral fracture and distal fibula fracture - s/p IMN 08/31, LLE splinted and covered in RADHA wrap -Will follow with orthopedic surgery outpatient in two weeks. - PT/OT tolerated well- recommended no further therapy -Patient's H&H stable after one day of therapeutic lovenox, restarted RESTAURANT MGR Xarelto 10mg daily ondischarge. -Discharge today to home Kade Seo MD, PGY-1 09/03/2023 4:58 AM Associated attestation - Alejandro Silva DO - 09/03/2023 12:22 PM EDT I saw and evaluated the patient today. I have reviewed the trainee note and agree. Ok to start oral anticoagulation today. Likely discharge later today. * Kade Seo MD - 09/02/2023 6:31 AM EDT PROGRESS NOTE - Trauma Surgery [facility] [id number] Name: [facility] TRAUMA Location: [facility] B[facility]/A Date: 09/02/2023 Time: 6:31 AM HOSPITAL DAY#: 3 ROUNDING SURGEON: Dr. Mendiola ADMISSION DATE: 08/30/2023 OPERATIONS / PROCEDURES: planned OR today with orthopaedics INJURY COMPLEX: Active Problems: Closed fracture of left distal tibia (POA: Unknown) POA = Present On Admission INTERIM HISTORY (LAST 24 HOURS): Patient reports that his pain is well controlled. He was up out of bed with therapy yesterday and states that it went well. He has been tolerating PO intake without issue. And reports having no difficulty with urination or BMs. He is eager to get on his way back home. Denies any chest pain, shortness of breath, fever, cough. Will follow up with ortho outpatient in 2 weeks. PHYSICAL EXAMINATION: Most Recent Vital Signs: BP: 118 mmHg/66 mmHg (09/02/23319) Pulse: 88 (09/02/23319) Temp: 37.11 C (09/02/23319) Resp: 18 (09/02/23319) SpO2: 96 % (09/02/23319) SpO2: 96 % (09/02/23319) Rhythm: normal sinus Vital Signs Last 24 Hours: Systolic BP: Most Recent Systolic BP Av mmHg Min: 118 mmHg Max: 122 mmHg Temperature: Most Recent Temperature Av.4 C Min: 37.11 C Max: 37.72 C Pulse: Pulse Av Min: 88 Max: 94 Respirations: Resp Av.5 Min: 18 Max: 19 SpO2: SpO2 Av % Min: 96 % Max: 96 % Pain Assessment (0-10): 3 Intake/Output Summary (Last 24 hours) at 09/02/2023 0631 Last data filed at 09/02/2023 0400 Gross per 24 hour Intake 310 ml Output -- Net 310 ml Head: normocephalic / atraumatic Eyes: pupils 2 mm, bilaterally reactive to light, extraocular muscles intact ENT: tympanic membranes bilaterally clear, oropharynx clear Neck: supple, non-tender, trachea midline Respiratory: clear to auscultation bilaterally Cardiovascular: regular rate and rhythm, palpable peripheral pulses present Abdomen: soft, nontender, nondistended Back: no tenderness across thoracic / lumbar spine Pelvis: non-tender, stable to anterior-posterior/lateral compression Rectal: deferred Genitourinary: normal male genitalia Musculoskeletal: LLE splinted and covered in RADHA wrap up to mid-thigh, sensory and motor function in tact. Toes WWP. All other extremities wnl. Skin: grossly intact Neurologic: alert and oriented x3 DEVICES Aly: no Tracheostomy: no NGT/OGT: no PEG: no Chest Tube(s): no Central Venous Catheter: no PICC Line(s): no TEDs/SCDs: yes, to uninjured leg IVC Filter: no Cervical Collar: no Thoracolumbar Fixation: no DIET: regular diet ACTIVITY LEVEL: per Ortho following OR ALLERGIES Patient has no known allergies. LABORATORIES Labs reviewed as indicated below: CBC Lab results within last 7 days (see chart for full results) Units 09/02/23 0441 09/01/23 1411 09/01/23 0438 WBC K/uL 6.83 8.40 9.70 HGB g/dL 11.8* 11.8* 12.3* HCT % 36.2* 35.6* 37.3* PLT K/uL 180 196 183 BMP Lab results within last 7 days (see chart for full results) Units 09/02/23 0441 09/01/23 0438 08/31/23 1632 Sodium mmol/L 139 135 137 Potassium mmol/L 4.2 3.9 4.1 Chloride mmol/L 104 103 104 CO2 mmol/L 25 23 22 BUN mg/dL 14 15 16 Creatinine mg/dL 1.0 1.0 1.0 Glucose mg/dL 96 103 110 CA, Mg, Phos Lab results within last 7 days (see chart for full results) Units 09/02/23 0441 09/01/23 0438 08/31/23 1632 08/31/23 0508 Calcium mg/dL 8.5 8.5 8.4 8.7 Magnesium mg/dL 2.0 2.2 -- 2.5 Phosphorus mg/dL 2.6 2.7 -- 4.0 CULTURES / SENSITIVITIES none RADIOGRAPHIC STUDIES No imaging results in the last 24 hours ASSESSMENT/PLAN Closed left distal tibia spiral fracture and distal fibula fracture - s/p IMN 08/31, LLE splinted and covered in RADHA wrap -Will follow with orthopedic surgery outpatient in two weeks. - PT/OT tolerated well- recommended no further therapy -Started patient on therapeutic lovenox with plan to transition to home Xarelto tomorrow given stable Hgb. -Plan to discharge tomorrow to home Kade Seo MD, PGY-1 09/02/2023 6:31 AM Associated attestation - Rhona Mendiola DO - 09/02/2023 5:23 PM EDT I have discussed the patient's management with the resident physician and/or advanced practice provider and agree with the note excepting the changes below. Please refer to the documented findings and plan of care. The patient's service consisted of an evaluation. I have seen and evaluated the patient. No acute overnight events. No acute complaints this AM. Tolerating diet. Pain well controlled. Voiding without issue and passing flatus. AVSS. LLE dressing c/d/I. Motor function, sensation and perfusion intact to distal extremity. H/H stable this AM in comparison to yesterday evening. Start therpeutic lovenox today and repeat labs. 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 Rhona Mendiola DO, MS, FACOS Trauma and Acute Care Surgery Surgical Critical Care * Archana Chan MD - 09/01/2023 7:29 AM EDT PROGRESS NOTE - Trauma Surgery [facility] [id number] Name: [facility] TRAUMA Location: [facility] B[facility]/A Date: 09/01/2023 Time: 7:29 AM HOSPITAL DAY#: 2 ROUNDING SURGEON: Dr. Mendiola ADMISSION DATE: 08/30/2023 OPERATIONS / PROCEDURES: planned OR today with orthopaedics INJURY COMPLEX: Active Problems: Closed fracture of left distal tibia (POA: Unknown) POA = Present On Admission INTERIM HISTORY (LAST 24 HOURS): Went to OR yesterday for operative fixation of posteromedial tibial plafond fracture and intramedullary nailing. No issues overnight, patient is resting comfortably in bed this morning. Pain is well controlled and does not limit patient's mobility, able to get up and use the bathroom. Eating, drinking, ambulating, voiding, and stooling appropriately. Has not yet worked with PT/OT. Will follow up with ortho outpatient in 2 weeks. Needs to stay in hospital while he resumes his PTAXarelto. PHYSICAL EXAMINATION: Most Recent Vital Signs: BP: 130 mmHg/71 mmHg (09/01/23403) Pulse: 84 (09/01/23403) Temp: 37.11 C (09/01/23403) Resp: 18 (09/01/23403) SpO2: 97 % (09/01/23403) SpO2: 97 % (09/01/23403) Rhythm: normal sinus Vital Signs Last 24 Hours: Systolic BP: Most Recent Systolic BP Av mmHg Min: 116 mmHg Max: 137 mmHg Temperature: Most Recent Temperature Av.9 C Min: 36.39 C Max: 37.5 C Pulse: Pulse Av.3 Min: 74 Max: 98 Respirations: Resp Av.1 Min: 9 Max: 21 SpO2: SpO2 Av.3 % Min: 92 % Max: 97 % Pain Assessment (0-10): 3 Intake/Output Summary (Last 24 hours) at 09/01/2023 0729 Last data filed at 08/31/2023 2200 Gross per 24 hour Intake 900 ml Output 1100 ml Net -200 ml Head: normocephalic / atraumatic Eyes: pupils 2 mm, bilaterally reactive to light, extraocular muscles intact ENT: tympanic membranes bilaterally clear, oropharynx clear Neck: supple, non-tender, trachea midline Respiratory: clear to auscultation bilaterally Cardiovascular: regular rate and rhythm, palpable peripheral pulses present Abdomen: soft, nontender, nondistended Back: no tenderness across thoracic / lumbar spine Pelvis: non-tender, stable to anterior-posterior/lateral compression Rectal: deferred Genitourinary: normal male genitalia Musculoskeletal: LLE splinted and covered in RADHA wrap up to mid-thigh, sensory and motor function in tact. All other extremities wnl. Skin: grossly intact Neurologic: alert and oriented x3 DEVICES Aly: no Tracheostomy: no NGT/OGT: no PEG: no Chest Tube(s): no Central Venous Catheter: no PICC Line(s): no TEDs/SCDs: yes, to uninjured leg IVC Filter: no Cervical Collar: no Thoracolumbar Fixation: no DIET: regular diet ACTIVITY LEVEL: per Ortho following OR ALLERGIES Patient has no known allergies. LABORATORIES Labs reviewed as indicated below: CBC Lab results within last 7 days (see chart for full results) Units 09/01/23 0438 08/31/23 1632 08/31/23 0508 WBC K/uL 9.70 8.28 6.54 HGB g/dL 12.3* 13.3* 13.9* HCT % 37.3* 40.4 43.6 PLT K/uL 183 185 219 BMP Lab results within last 7 days (see chart for full results) Units 09/01/23 0438 08/31/23 1632 08/31/23 0508 Sodium mmol/L 135 137 140 Potassium mmol/L 3.9 4.1 3.9 Chloride mmol/L 103 104 104 CO2 mmol/L 23 22 25 BUN mg/dL 15 16 15 Creatinine mg/dL 1.0 1.0 1.1 Glucose mg/dL 103 110 87 CA, Mg, Phos Lab results within last 7 days (see chart for full results) Units 09/01/23 0438 08/31/23 1632 08/31/23 0508 Calcium mg/dL 8.5 8.4 8.7 Magnesium mg/dL 2.2 -- 2.5 Phosphorus mg/dL 2.7 -- 4.0 CULTURES / SENSITIVITIES none RADIOGRAPHIC STUDIES XR TIB/FIB 2 VIEWS Result Date: 08/31/2023 IMPRESSION ORIF distal left tibial fracture. Intact hardware and anatomic alignment. ASSESSMENT/PLAN Closed left distal tibia spiral fracture and distal fibula fracture - s/p OR 1027, LLE splinted and covered in RADHA wrap - PT/OT today, monitor for increased pain - AM Hgb dropped one point from preop, will check PM CBC - Start therapeutic lovenox dosing this afternoon if PM Hgb stable Archana Chan MD General Surgery, PGY1 [facility] 09/01/2023 7:34 AM Associated attestation - Rhona Mendiola DO - 09/01/2023 8:45 AM EDT I have discussed the patient's management with the resident physician and/or advanced practice provider and agree with the note excepting the changes below. Please refer to the documented findings and plan of care. The patient's service consisted of an evaluation. I have seen and evaluated the patient. Patient status post IM nail of LLE tib-fib fracture yesterday. Has remained hemodynamically stable since that time. Pain appropriately controlled. Denies shortness of breath. Tolerating diet without nausea/vomiting. Voiding and passing flatus without issue. AVSS. LLE with splint in place, c/d/I. Sensation, motor function and perfusion intact to distal extremity. Labs with downtrending H/H. Will repeat CBC this afternoon and H/H is stable prior to transition to therapeutic RESTAURANT MGR anticoagulation for history of VTE. Continue DVT ppx per trauma protocol until that time. PT/OT evaluation today as clinical status allows. Rhona Mendiola DO, MS, FACOS Trauma and Acute Care Surgery Surgical Critical Care * Debra Mclean DO - 08/31/2023 6:04 AM EDT PROGRESS NOTE - Trauma Surgery [facility] [id number] Name: [facility] TRAUMA [place] [facility] [place] Date: 08/31/2023 Time: 6:04 AM HOSPITAL DAY#: 1 ROUNDING SURGEON: Dr. Mendiola ADMISSION DATE: 08/30/2023 OPERATIONS / PROCEDURES: planned OR today with orthopaedics INJURY COMPLEX: Active Problems: Closed fracture of left distal tibia (POA: Unknown) POA = Present On Admission INTERIM HISTORY (LAST 24 HOURS): Resting comfortably in bed, Left lower extremity in splint to thigh. States pain is well controlled. Has been NPO since 2400 and ready to go to the operating room today with orthopaedics. Some questions about mobility after surgery,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 injury, intracranial bleed, C-spine injury, intrathoracic injury, intra-abdominal injury, pelvic injury, neurovascular injury, fracture, dislocation, acute blood loss anemia. This is a 38 year-old M presenting to the ED via EMS ground as a Level 2 Trauma alert after building collapse. Pt was brought to the resuscitation room by EMS. The history was concerning for multi-system trauma. Airway intact and breathing adequate.yes Initial circulation assessment was unremarkable. Physical examination performed as noted above. Pt was removed from the spineboard with in-line stabilization technique and patient's back examined. Rectal exam performed by Trauma. US performed and did not show any evidence of intraabdominal free fluid. Additional treatments provided by Trauma service (see separate note). Patient had obvious left lower extremity deformity. He was given fentanyl for analgesia. I assistedOrthopedics with mild sedation for splinting of the left lower extremity. Admitted to the trauma service for further work up and management. Clinical Impressions Trauma Disposition Admitted. I discussed the management of this patient with the admitting provider and I made a decision to admit the patient. Admission Order Ordered Status . 08/30/23 1214 Admit for Inpatient Services (incl ZPO) ONCE Acknowledged Mark Agosto was the attending physician who supervised the care of this patient. Jose Tomas DO ATTENDING ATTESTATION I have seen and examined this patient on the 08/30/2023 visit. I have discussed the patient's management with the provider listed above and agree with the note, findings, and plan of care. Mark Agosto DO documented in this encounter Miscellaneous Notes * Ancillary Progress Note - Yazmin Leon MSW - 09/03/2023 11:39 AM EDT TRAUMA CARE MANAGEMENT - DISCHARGE [place] [facility] [address] Name: Aditya Benito [place] [facility] Date: 09/03/2023 Time: 11:39 AM The following coordination of care and discharge plan has been coordinated with the care team, patient, family and/or caregiver according to the patients needs and preferences. Discharge Discharge Insurance considerations verified and completed: Yes (09/03/231138) Second Notice Important Message from Medicare delivered: Not Applicable (09/03/231138) Was Caregiver/Family/Facility contacted regarding discharge: Yes (09/03/231138) Discharge Transportation: Family/Friends drive (09/03/231138) Date of scheduled discharge transportation: 09/03/23 (09/03/231138) Patient declined post-hospital transition of care recommendation: N/A (09/03/231138) Provider to Provider handoff completed: N/A (09/03/231138) Final D/C Plan - Complete at time of D/C Final Discharge Plan (Complete only at time of Discharge): Home - Self Care (09/03/231138) Narrative: Pt d/c'ing to home on this date. No CM needs identified. * Jeny Cano - Maggy Bishop RN - 09/03/2023 4:48 AM EDT Clinical Goal(s): Pt will have adequate pain management this shift. (09/02/232299) Possible barriers to meeting goal(s)/advancing plan of care: Pt condition Stability of the patient: Moderately stable - low risk of patient condition declining or worsening Summary regarding today's goal(s): Met: Pt had adequate pain management this shift. Recommendations: Continue pain assessment and management as needed. * Jeny Cano - Lneka Roque RN - 09/02/2023 3:35 PM EDT Clinical Goal(s): Pt will remain free from falls this shift (09/02/23 0700) Possible barriers to meeting goal(s)/advancing plan of care: pt condition Stability of the patient: Moderately stable - low risk of patient condition declining or worsening Summary regarding today's goal(s): Met: pt remained free from falls this shift Recommendations: continue to practice safety precautions * Jeny Cano - Maggy Bishop RN - 09/02/2023 4:19 AM EDT Clinical Goal(s): Pt will remain free from fall this shift. (09/01/232299) Possible barriers to meeting goal(s)/advancing plan of care: Pt condition Stability of the patient: Moderately stable - low risk of patient condition declining or worsening Summary regarding today's goal(s): Met: Pt remained free from fall this shift. Recommendations: Continue safety rounds and implement fall precautions. * Jeny Cano - Lenka Roque RN - 09/01/2023 2:13 PM EDT Clinical Goal(s): Pt will remain free from falls this shift (09/01/23 0700) Possible barriers to meeting goal(s)/advancing plan of care: pt condition Stability of the patient: Moderately stable - low risk of patient condition declining or worsening Summary regarding today's goal(s): Met: pt remained free from falls this shift Recommendations: continue safety precautions * Care Plan - Maggy Bishop RN - 09/01/2023 4:34 AM EDT Clinical Goal(s): Pt will remain free from fall/injury this shift. (08/31/23 2300) Possible barriers to meeting goal(s)/advancing plan of care: Patient's condition. Stability of the patient: Moderately stable - low risk of patient condition declining or worsening Summary regarding today's goal(s): Met: Patient remained free from fall this shift. Recommendations: Continue safety rounds and fall precautions. * Progress Notes - Non-Billable - Debra Mclean DO - 08/31/2023 4:08 PM EDT Mike Benito is a 38yo man with distal tibia and fibula fracture now s/p operative fixation of posteromedial tibial plafond fracture and intramedullary nailing of left distal third tibial shaft fracture with orthopaedics. He is doing well after surgery. Denies nausea, vomiting. Has not been up out of bed yet since surgery. Has not voided yet since surgery. States pain is well controlled. BP 130/84 | Pulse 79 | Temp 36.7 C (98.1 F) (Tympanic) | Resp 17 | Ht 1.829 m (6') | Wt 107 kg (236 lb) | SpO2 95% | BMI 32.01 kg/m | BSA 2.33 m Saturating well on room air Regular rate and rhythm Abdomen soft, nondistended LLE with splint in place from the toes to the thigh Plan: -OK for regular diet, encouraged to take it slow -Post op labs: CBC and BMP -Mobility per ortho: Lower Left Extremity: toe touch weight bearing, OOB with assist, keep splint in place Debra Mclean DO Vascular Surgery PGY-1 * Progress Notes - Non-Billable - Debra Mclean DO - 08/31/2023 4:07 PM EDT Please merge chart for discharge * Ancillary Progress Note - Joan Colvin LSW - 08/31/2023 10:10 AM EDT TRAUMA CARE MANAGEMENT - TRANSITION NOTE [facility] [address] Name: GloriaThree TRAUMA Location: [place] [facility] Date: 08/31/2023 Time: 10:10 AM Prescription Coverage: Unknown (08/30/231513) Risk Stratification Risk Stratification Medical and Behavioral Health Concerns Identified: N/A (08/30/231513) Psycho Social/Care Gaps concerns identified upon admission:: Adjustment to illness/injury () Readmission Risk Score: 9.56 (08/31/23 08) Caregiver Information Patient Contacts Name Relation Home Work Mobile Ashli Benito Spouse [phone] Transition of Care Checklist Transition of Care Checklist (aka Readmission Risk Score) Readmission Risk Score: 9.56 (08/31/23 0800) Narrative: Pt discussed during BOOST and medical records were reviewed. Per team/records; OR today,post op PT/OT, anticipated home discharge with family and community support. SW will continue to follow and remain available for support and resources. Anticipated Transportation at Discharge: Family Patient/Family Expectations: Home Transition Planning Additional Considerations: Care Management will continue to monitor and assist with discharge planning needs * Ancillary Progress Note - Duc Wang, PhD - 08/31/2023 9:48 AM EDT Injured Trauma Survivor Screen (ITSS) BEFORE THIS INJURY Have you ever taken medication for, or been given a mental health diagnosis? PTSD:N/A DEP: No- 0 Has there ever been a time in your life you have been bothered by feeling down or hopeless or lost all interest in the things you usually enjoyed for more than 2 weeks? PTSD: N/A DEP: No- 0 WHEN YOU WERE INJURED OR RIGHT AFTERWARD 3. Did you think you were going to ? PTSD: No- 0 DEP: No- 0 4. Do you think this was done to you intentionally? PTSD: No- 0, DEP: N/A SINCE YOUR INJURY 5. Have you felt emotionally detached from your loved ones? PTSD: N/A, DEP No- 0 6. Do you find yourself crying and unsure why? PTSD: N/A, DEP No- 0 7. Have you felt more restless, tense or jumpy than usual? PTSD: No- 0, DEP: N/A 8. Have you found yourself unable to stop worrying? PTSD: No- 0, DEP: N/A 9. Do you find yourself thinking that the world is unsafe and that people are not to be trusted? PTSD No- 0 DEP: N/A TOTAL SCORE: PTSD: 0, DEP 0 Score > or = 2 in PTSD category is positive for PTSD risk (place psychology consult for Dr Flores indicating + ITSS) Score > or = 2 in DEP category is positive for Depression Risk (check with Dr Flores to see if aconsult is needed) Duc Wang, PhD, cnc mill programmer Unit Coordinator [facility] 08/31/2023 9:48 AM * Ancillary Progress Note - Duc Wang, PhD - 08/31/2023 9:45 AM EDT SBIRT NOTE Was screening able to be completed? Yes If unable to be completed, why? n/a S (screening) [employer]AGE-[employer] Substance Abuse Screening Tool (Any "yes" answer indicates a positive screen) C Have you ever felt the need to Cut down on your drinking or drug use? No A Have people Annoyed you by criticizing your drinking or drug use? No G Have you ever felt Guilty about drinking or drug use? No E Have you ever felt you needed a drink or used drugs first thing in the morning to steady your nerves or to get rid of a hangover (Eye-Mechanical Unit Repairer)? No BI (brief intervention) to be done on all patients: I have reviewed both ETOH/ Urine Tox screen with patient and discussed the results as well. After reviewing the results patient admits they they do or do not feel their drinking &/or druguse interferes with their life/goals for the future. Do Not Patient does or does not want to be referred to treatment at this time. Does not RT (referral for treatment) to be done if BI and/or screening +, or any concerns/issues arose whilespeaking with patient (pamphlet for area services given to all pts no matter what): Not referred (reason why no concerns identified during brief intervention, pt denies use of drugs and/or alcohol. Urine tox positive for fentanyl, morphine and oxycodone- all administered to patient prior to urine being set for urine tox. ETOH negative. Will continue to follow.) Duc Wang, PhD, cnc mill programmer Unit Coordinator [facility] 08/31/2023 9:47 AM * Ancillary Progress Note - Duc Wang, PhD - 08/31/2023 9:41 AM EDT NURSING PROGRESS NOTE - Rehabilitation Review - Trauma Surgery [facility] [phone] Name: GloriaThree TRAUMA Location: [place] [facility] Date: 08/31/2023 Time: 9:41 AM ADULT REHABILITATION REVIEW Chart reviewed according to [place] [employer] guidelines. Case discussed in trauma rounds. Mechanism of Injury: Temporary building collapsed on patient. Injuries consistant with mechanism. Ortho consulted. Occupation: Self-employed. Injury prevention: Weight bearing restrictions r/t injury. Rehabilitation needs assessed. Rehabilitation Medicine: N/A Trauma Psychology: N/A Alcohol/Chemical Dependency: N/A Social Work: yes -- to follow Physical Therapy: yes -- consult to be placed, post-op, then pending eval/recs Speech Pathology: N/A Occupational Therapy: yes -- consult to be placed, post-op, then pending eval/recs Still Operator Whiskey Services: yes -- following, as needed. Plan: Home vs rehab when medically stable. Pt reports he lives with his spouse, Ashli, and their three children ages 8, 6 and 2 in a 3 story home with 6 TABATHA. Pending post-op PT/OT, consult/eval/recs. Will continue to follow. Duc Wang, PhD, cnc mill programmer Unit Coordinator [facility] 08/31/2023 9:44 AM * Ancillary Progress Note - Clary Bush RDN - 08/31/2023 9:11 AM EDT CLINICAL NUTRITION ADULT RISK ASSESSMENT [facility] [address] Name: Anant MOSQUERA Location[place] [facility] Date: 08/31/2023 Time: 9:11 AM How patient was identified (select 2): date and Name Anant TRAUMA is a 89 year old adult being assessed for clinical nutrition risk related to trauma Patient identified as: Aditya Thong - 1985 Primary diagnosis: Admitted after crush injury to [facility] with left tib/fib fracture Other pertinent information: Pt is currently NPO for planned surgery. Pt reports no changes to intake prior to admission. Obtained food preferences. Denies N/V, constipation/diarrhea. No c/o chewing or swallowing difficulties. No weight history available - pt reports no weight loss. Pt does not consume supplements like Boost or Ensure. He may occasionally take vitamin C, but not consistently. Anthropometrics Measurements Admission weight (for dietitians): 107 kg Height: 182.9 cm (6') (08/30/232006) Weight: 107 kg (236 lb) (08/30/232006) BMI: 32 (08/30/232006) Usual Body Weight or EDW for Dialysis Patients: 107 kg per pt Diet: NPO Previously followed diet: Regular Food Allergies/Intolerances: No known Oral Nutrition Supplement (ONS): None Pertinent medications/vitamins/minerals/supplements: isolyte-s infusion, colace, senokot RISK FACTORS: Adult Energy Intake: No significant decrease Interpretation of Weight Change: No recent weight/weight history available Skin: No breakdown noted NUTRITION RISK CATEGORY: Nutrition Risk Category: Low/Moderate (0-1 factors) Clinical Nutrition Recommendations: Diet: Advance diet when clinically feasible NUTRITION INTERVENTION/PLAN: Orders: Relayed information to food preparer Continue to monitor NPO/clear liquid status Continue current care plan Will follow and adjust nutritional plan as medical condition requires. Please contact for change(s)in patient condition requiring earlier intervention. Clary Bush RDN, BLANCAN Clinical Dietitian Extension: [phone] [employer] * Ancillary Progress Note - Yesenia Irby Chaplain - 08/31/2023 7:32 AM EDT PROGRESS NOTE - Spiritual Care Contact Information [facility] [address] Name: Anant MOSQUERA Location[place] [facility] Date: 08/31/2023 Time: 7:32 AM Religious: Orthodox Affiliations: REASON FOR VISIT: follow-up visit REQUEST RECEIVED FROM: staff member - Name: Chaplain Price VISIT LENGTH: 10 min REQUEST FACTORS (Nature of Situation): Follow-up Visit FOCUS OF CARE: Patient SPIRITUAL ASSESSMENT: Ling or Belief System: Caodaism Most Important Need(s) / Concern(s): benefits from spiritual care; pre-surgery prayer Sense of Community and/or Orthodox Affiliation: family and ling community Addresses need(s)/concerns(s) and/or libertad through: Debriefing, Family, Friends, God/Higher Power, Gratefulness, Optimism, Peace/Calmness SPIRITUAL CARE PROVIDED: Still Operator Whiskey addressed needs/concerns and/or coping through: Facilitating debriefing, Listening presence, Prayer, and Supportive dialogue REFERRAL TO: N/A OUTCOMES: Comfort/Healing Presence, Peace/Gratitude, Spiritually Connected ANNOTATION: I provided pt with a spiritual care follow up visit. He was resting calmly in bed, and told me that he'll be having surgery later this a.m. on his broken leg. Pt was welcoming of prayer for the surgery and subsequent healing, and for his family and friends and medical team. He knows howto reach chaplains if needed in future. * Care Plan - Jose Barber, RN - 08/31/2023 3:19 AM EDT Clinical Goal(s): Pt will be free from fall/injury during this shift (08/30/23 2300) Possible barriers to meeting goal(s)/advancing plan of care: Traumatic fractures Stability of the patient: Moderately stable - low risk of patient condition declining or worsening Summary regarding today's goal(s): Met: Pt was safe Recommendations: Continue to monitor and fall precautions * Progress Notes - Non-Billable - Stevo Armenta MD - 08/31/2023 1:03 AM EDT Brief Ortho Progress Note - Compartment check [facility] TRAUMA [id number] 08/31/2023. Patient seen and examined at bedside. No changes in pain. No new numbness or tingling. Patient otherwise comfortable. Exam: LLE: compartments soft and compressible (windowed through splint) no pain with extension of toes SILT toes palpable DP pulse Low index of suspicion of compartment syndrome. Will continue to follow with serial examinations. Please notify service if there is new onset numbness or tingling, increasing pain requirement/ agitation, or other concerns. General supervision provided by Dr. Collins. * Ancillary Progress Note - Stoney Diaz, PRE PRESS MANAGER - 08/30/2023 9:33 PM EDT PATIENT DRIVEN PROTOCOL - Respiratory Care Services [address] [address] Name: Anant TRAUMA [place] [facility] Date: 08/30/2023 Time: 9:33 PM Patient Driven Protocol Summary: Initial evaluation performed. This Treatment Plan and medications will be reviewed by the Primary Care Team for any contraindications. Respiratory Care Treatment Plan Pulmonary Volume Expansion Therapy: Incentive Spirometry PRN to prevent or treat alveolar consolidation and atelectasis. The patient will be re-evaluated: No re-evaluation needed. Indications for treatment met. The Triage Level is: (Assessment Score = 0 - 5) Level 5. Triage Level Definitions: Level 1 Severe Respiratory/Airway Compromise Level 2 Moderate Respiratory/Airway Compromise or high risk for pulmonary complications Level 3 Mild Respiratory/Airway Compromise or moderate risk for pulmonary complications Level 4 Episodic Respiratory/Airway Compromise or low risk for pulmonary complications Level 5 No Respiratory/Airway Compromise Triage 1 Triage 2 Triage 3 Triage 4 Triage 5 greater than 20 16 - 20 11 - 15 6 - 10 0 - 5 Medical Record Assessment Clinical Findings Pulmonary Status: 0 - No History Surgical Status: 1 - General Surgery Chest X-Ray: 0 - Not Performed or performed greater than 3 days ago Assessment Score: 1 Patient Assessment Clinical Findings Respiratory Pattern: 0 - RR 12 - 20; Patient only gets breathless with strenuous exercise. Breath Sounds: 0 - Clear to auscultation Cough Effectiveness: 0 - Strong non-productive Sputum Production: 0 - No sputum production Level of Activity: 2 - Temporarily non-ambulatory O2 needed to keep SpO2 greater than or equal to 92%: 0 - Room Air Assessment Score: 2 Total Assessment Score: 3 Breath Sounds: Inspiratory and expiratory clear and diminished bilaterally.. Cough and Sputum: An effective cough produced no sputum... CXR: not performed. Vital Signs: Resp: 14 (08/30/231958) Pulse: 77 (08/30/231958) Temp: 37.4 C (99.3 F) (08/30/231958) BP: 127/82 (08/30/231958) SpO2: 99 % (08/30/231899) PFT: Minimal Predicted IC: 1 L. Inspiratory capacity: 3L. Primary Service: Trauma Surgery. Admitting Diagnosis: Trauma [T14.90XA] Pulmonary Diagnosis: none. Prescriptions/Home Medications/Durable Medical Equipment: none * Ancillary Progress Note - Dee Jerome Chaplain - 08/30/2023 8:53 PM EDT PROGRESS NOTE - Spiritual Care Contact Information [address] [address] Name: Anant TRAUMA [place] [facility] Date: 08/30/2023 Time: 8:53 PM Religious: Orthodox Affiliations: REASON FOR VISIT: continuum of care ANNOTATION: Still Operator Whiskey Ann shared that the of the patient is and mentioned that she washungry earlier. Still Operator Whiskey took her a meal voucher for the [employer] so she could get some food. Patients Ashli was very grateful. She shared that they have 3 children, two boys and a girl and are she is anxious about getting home to be with them. * Communication - Kady Goode RN - 08/30/2023 6:52 PM EDT Hand-Off - Nurse Communication Note Name: Anant TRAUMA Location: 27/X Date: 08/30/2023 Time: 6:52 PM Sending to: GP 530 Safety Concerns: Fall Risk Allergies: Patient has no known allergies. Code Status: Full Code Discussion of adv directives occurred with - adult: Patient Isolation: None none Isolation flowsheet: Special Needs: Special Needs comments: Attention to: Jose Barber Report from: Kady Goode RN Phone extension: tiger text Patient arriving via: Stretcher Reason for SBAR handoff: Admission Situation/Background Admission date: 08/30/2023 Patient Service: Trauma Surgery [[id number]] Attending Provider: Rhona Mendiola DO Admitting diagnosis: Trauma Chief Complaint: Trauma Problem list: Active Problems: Closed fracture of left distal tibia Resolved Problems: * No resolved hospital problems. * Level of Care: Med Surg [3] Assessment Vital Signs: BP: 125/83 (08/30/23 1800) Temp: 37.5 C (99.5 F) (08/30/23 1140) Pulse: 84 (08/30/23 1800) Resp: 13 (08/30/23 1800) SpO2: 100 % (08/30/23 1800) Weight: 106.8 kg (235 lb 7.2 oz) (08/30/23 1215) Fall Scale: Fall Score: 35 (08/30/23 1200) Fall Interventions: Bed at low level;Floor free of clutter;Walk path free of obstacles (08/30/23 1200) Neurological: Offerle Coma Scale Eyes Open: Spontaneous (08/30/23 170) Best Verbal Response: Verbally appropriate for age (08/30/23 170) Best Motor Response: Obeys commands appropriate for age (08/30/23 170) Coma Score: 15 (08/30/23 170) Additional Neurological Information: none Respiratory: Respiratory WNL: WNL- within normal limits (08/30/23 124) Cough: None (08/30/23 124) Depth/Rhythm: Regular (08/30/23 124) Dyspnea Occurance: None (08/30/23 124) Effort: Unlabored (08/30/23 124) Oxygen therapy/ Mechanical vent O2 flow rate: 4 L/MIN (08/30/23 1800) Supplemental O2 Delivery: Nasal Cannula (08/30/23 1800) O2 flow rate: 4 L/MIN (08/30/23 1800) Additional Respiratory Information: none Cardiac: Rhythm: Regular (08/30/23 124) Extremities: +Sensation;Right;Left;Upper;Lower (08/30/23 124) Pulses Right: Palpable;Dorsalis Pedis +;Radial + (08/30/23 124) Pulses Left: Doppler;Dorsalis Pedis + (palpable radial) (08/30/23 124) Edema: No (08/30/231239) Additional Cardiac Information: none GI/: Abdomen: Soft;Non-distended;Non-tender (08/30/23 1240) Bowel Sounds: All Quadrants;Present;Regular (08/30/23 124) Additional GI/ Information: none Integumentary: Skin Description: Warm;Dry (08/30/23 1240) Skin Color: Flesh Tone (08/30/23 124) Additional Integumentary Information: none Restraints: No orders of the defined types were placed in this encounter. Lines: Peripheral Line Left Antecubital 18 Gauge (Active) Status Capped/Locked;Flushes easily 08/30/23 114 Phlebitis Scale 0 08/30/231148 Infiltration Scale 0 08/30/23 114 Site Description (Other) Without redness, swelling or drainage 08/30/23 114 Site Intervention Flushed 08/30/231148 Dressing Assessment Dressing clean, dry, and intact;Transparent dressing 08/30/231148 Number of days: 0 Labs: Labs This Encounter BASIC METABOLIC PANEL - Abnormal; Notable for the following components: Result Value Ref Range CO2 21 22 - 32 mmol/L All other components within normal limits LACTATE - Abnormal; Notable for the following components: Lactate 2.1 0.4 - 2.0 mmol/L All other components within normal limits PT INR - Normal Narrative: Warfarin Therapy INR: 2.0-3.0 conventional anticoagulation INR: 2.5-3.5 high intensity anticoagulation APTT - Normal Narrative: Anticoagulation may affect testing. Refer to [facility] Test Catalog for a listof effects. AST - Normal ETHANOL, MEDICAL - Normal DIFFERENTIAL, AUTOMATED - Normal CBC WITH WBC DIFFERENTIAL Narrative: The following orders were created for panel order CBC WITH WBC DIFFERENTIAL. Procedure Abnormality Status --------- ------ CBC[[id number]] Final result DIFFERENTIAL, AUTOMATED[[id number]] Normal Final result Please view results for these tests on the individual orders. TYPE AND SCREEN CBC ABO/RH URINALYSIS, REFLEX TO MICROSCOPIC CULTURE, URINE, QUANTITATIVE TOXICOLOGY, URINE SCREEN W/ CONFIRMATION URINALYSIS, REFLEX TO CULTURE (NOT FOR NEUTROPENIC PATIENTS) Narrative: The following orders were created for panel order URINALYSIS, REFLEX TO CULTURE (NOT FOR NEUTROPENIC PATIENTS). Procedure Abnormality Status --------- ------ URINALYSIS, REFLEX TO CU...[[id number]] URINALYSIS, REFLEX TO CU...[[id number]] Please view results for these tests on the individual orders. TOXICOLOGY, URINE SCREEN W/ CONFIRMATION CULTURE, URINE, QUANTITATIVE URINALYSIS, REFLEX TO CULTURE (CUP ONLY) URINALYSIS, REFLEX TO CULTURE Diet: Orders Placed This Encounter Procedures NPO After 2400 Except Meds Regular Diet NPO After 2400 Except Meds NPO After 2400 Except Meds Additional Diet Information: NPO after midnight Intake and Output: Intake/Output Summary (Last 24 hours) at 08/30/2023 1852 Last data filed at 08/30/2023 1330 Gross per 24 hour Intake 0 ml Output 28 ml Net -28 ml Patient Belongings and Home Medications Patient Belongings at Bedside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 Johnson PA-C LAB BLOOD OR DERABLES LAB[facility]ORY [facility] [address], [place] [id number] * BASIC METABOLIC PANEL (08/31/2023 4:32 PM EDT) Pathologist [facility] BUN 16 6 - 20 mg/dL 08/31/2023 4:57 PM EDT LABORATORY [facility] Creatinine 1.0 0.6 - 1.2 mg/dL 08/31/2023 4:57 PM EDT LABORATORY [facility] Estimated Glomerular Filtration Rate 08/31/2023 4:57 PM EDT LABORATORY [facility] Comment: Glomerular filtration rate could not be calculated without patient sex information. eGFR is calculated based on the CKD-EPI 2020 equation Sodium 137 135 - 146 mmol/L 08/31/2023 4:57 PM EDT LABORATORY [facility] Potassium 4.1 3.5 - 5.1 mmol/L 08/31/2023 4:57 PM EDT LABORATORY [facility] Chloride 104 98 - 107 mmol/L 08/31/2023 4:57 PM EDT LAB[facility]ATORY [facility] CO2 22 22 - 32 mmol/L 08/31/2023 4:57 PM EDT LAB[facility]ATORY [facility] Anion Gap 11 7 - 15 mmol/L 08/31/2023 4:57 PM EDT LAB[facility]ATORY [facility] Glucose 110 70 - 120 mg/dL 08/31/2023 4:57 PM EDT LAB[facility]ATORY [facility] Calcium 8.4 8.4 - 10.2 mg/dL 08/31/2023 4:57 PM EDT LABORATORY C Blood Venous blood specimen / Unknown Venipuncture / Unknown 08/31/2023 4:32 PM EDT 08/31/2023 4:40 PM EDT Debra Brothersjeannie Villaltarue DO LAB BLOOD ORDERABLE S LABORATORY [facility] [address] [place] [address] * (ABNORMAL) CBC (08/31/2023 4:32 PM EDT) Pathologist [facility] WBC 8.28 4.00 - 10.80 K/uL 08/31/2023 4:49 PM EDT LABORATORY [facility] RBC 4.51 4.50 - 5.25 M/uL 08/31/2023 4:49 PM EDT LABORATORY [facility] HGB 13.3(L) 14.0 - 16.8 g/dL 08/31/2023 4:49 PM EDT LABORATORY [facility] HCT 40.4 40.0 - 48.4 % 08/31/2023 4:49 PM EDT LABORATORY [facility] MCV 89.6 82.0 - 99.5 fL 08/31/2023 4:49 PM EDT LABORATORY [facility] MCH 29.5 27.0 - 34.0 pg 08/31/2023 4:49 PM EDT LAB[facility]ATORY [facility] MCHC 32.9 32.0 - 36.0 g/dL 08/31/2023 4:49 PM EDT LAB[facility]ATORY [facility] RDW 12.4 11.5 - 15.5 % 08/31/2023 4:49 PM EDT LAB[facility]ATORY [facility] PLT 185 140 - 400 K/uL 08/31/2023 4:49 PM EDT LAB[facility]ATORY [facility] MPV 9.9 6.6 - 11.1 fL 08/31/2023 4:49 PM EDT LABORATORY [facility] nRBCs 0 <=0 /100 WBCs 08/31/2023 4:49 PM EDT LAB[facility]ATORY [facility] Blood Venous blood specimen / Unknown Venipuncture / Unknown 08/31/2023 4:32 PM EDT 08/31/2023 4:40 PM EDT Debra Levy Vinay DO LAB BLOOD ORDERABLE S LABORATORY [facility] [address] [place] [address] * XR TIB/FIB 2 VIEWS (08/31/2023 1:00 PM EDT) Anatomical Region Laterality Modality Lower Extremity, TibFib Computed Radiography 08/31/2023 1:05 PM EDT Impressions 08/31/2023 1:02 PM EDT IMPRESSION ORIF distal left tibial fracture. Intact hardware and anatomic alignment. Narrative 08/31/2023 1:02 PM EDT EXAM Left tibia/fibula-08/31/2023 1:00 pm HISTORY postop COMPARISON 08/30/2023 TECHNIQUE Four views FINDINGS ORIF distal left tibial fracture. Hardware is intact. Alignment is anatomic. Mildly displaced spiral distal fibular diaphyseal fracture improved in alignment. Overlying splint. Procedure Note GamalPineda Dionte, DO - 08/31/2023 EXAM Left tibia/fibula-08/31/2023 1:00 pm HISTORY postop COMPARISON 08/30/2023 TECHNIQUE Four views FINDINGS ORIF distal left tibial fracture. Hardware is intact. Alignment isanatomic. Mildly displaced spiral distal fibular diaphyseal fractureimproved in alignment. Overlying splint. IMPRESSION IMPRESSION ORIF distal left tibial fracture. Intact hardware and anatomicalignment. Stevo Armenta MD RADIOLOGY (R AD GENERAL) * XR INTRA-OP C-ARM CASE (08/31/2023 12:53 PM EDT) Narrative Scheduling, Silent - 08/31/2023 12:53 PM EDT This procedure will not be read by a Radiologist. Please see operative note. Stevo Armenta MD RADIOLOGY (R AD GENERAL) * PHOSPHORUS (08/31/2023 5:08 AM EDT) Phosphorus 4.0 2.5 - 4.8 mg/dL 08/31/2023 6:05 AM EDT LAB[facility]ATORY [facility] Blood Venous blood specimen / Unknown Venipuncture / Unknown 08/31/2023 5:08 AM EDT 08/31/2023 5:34 AM EDT Geovanni Johnson PA-C LAB BLOOD OR DERABLES LAB[facility]AT[facility] [address] [place] [address] * MAGNESIUM (08/31/2023 5:08 AM EDT) Magnesium 2.5 1.5 - 2.6 mg/dL 08/31/2023 6:05 AM EDT LABORATORY [facility] Blood Venous blood specimen / Unknown Venipuncture / Unknown 08/31/2023 5:08 AM EDT 08/31/2023 5:34 AM EDT Lexusskylersandra Abi Johnson PA-C LAB BLOOD OR DERABLES Performing Organization Address [facility]/ZIP Co de Phone Number LABORATORY [facility] [address] [place] [address] * CALCIUM, IONIZED (08/31/2023 5:08 AM EDT) Calcium, Ionized 1.21 1.13 - 1.32 mmol/L 08/31/2023 5:56 AM EDT LABORATORY [facility] Comment:This test was develo ped and its performance characteristics dtermined by [employer]. It has not been cleared or approved by the [place] Food and Drug Administration Blood Venous blood specimen / Unknown Venipuncture / Unknown 08/31/2023 5:08 AM EDT 08/31/2023 5:34 AM EDT Lexusskylersandra Abi Johnson PA-C LAB BLOOD OR DERABLES Performing Organization Address [facility] Co de Phone Number LABORATORY [facility] [address] [place] [address] * BASIC METABOLIC PANEL (08/31/2023 5:08 AM EDT) BUN 15 6 - 20 mg/dL 08/31/2023 6:05 AM EDT LABORATORY [facility] Creatinine 1.1 0.6 - 1.2 mg/dL 08/31/2023 6:05 AM EDT LABORATORY [facility] Estimated Glomerular Filtration Rate 08/31/2023 6:05 AM EDT LABORATORY [facility] Comment: Glomerular filtration rate could not be calculated without patient sex information. eGFR is calculated based on the CKD-EPI 2020 equation Sodium 140 135 - 146 mmol/L 08/31/2023 6:05 AM EDT LABORATORY C Potassium 3.9 3.5 - 5.1 mmol/L 08/31/2023 6:05 AM EDT LABORATORY C Chloride 104 98 - 107 mmol/L 08/31/2023 6:05 AM EDT LAB[facility]ATORY [facility] CO2 25 22 - 32 mmol/L 08/31/2023 6:05 AM EDT LABORATORY [facility] Anion Gap 11 7 - 15 mmol/L 08/31/2023 6:05 AM EDT LABORATORY [facility] Glucose 87 70 - 120 mg/dL 08/31/2023 6:05 AM EDT LAB[facility]ATORY [facility] Calcium 8.7 8.4 - 10.2 mg/dL 08/31/2023 6:05 AM EDT LABORATORY [facility] Blood Venous blood specimen / Unknown Venipuncture / Unknown 08/31/2023 5:08 AM EDT 08/31/2023 5:34 AM EDT Geovanni Johnson PA-C LAB BLOOD OR DERABLES LAB[facility]ATORY [facility] [address] [place] [address] * (ABNORMAL) CBC (08/31/2023 5:08 AM EDT) WBC 6.54 4.00 - 10.80 K/uL 08/31/2023 5:47 AM EDT LABORATORY GM RBC 4.74 4.50 - 5.25 M/uL 08/31/2023 5:47 AM EDT LABORATORY GM HGB 13.9(L) 14.0 - 16.8 g/dL 08/31/2023 5:47 AM EDT LABORATORY GM HCT 43.6 40.0 - 48.4 % 08/31/2023 5:47 AM EDT LABORATORY GM MCV 92.0 82.0 - 99.5 fL 08/31/2023 5:47 AM EDT LABORATORY GM MCH 29.3 27.0 - 34.0 pg 08/31/2023 5:47 AM EDT LABORATORY [facility] MCHC 31.9 32.0 - 36.0 g/dL 08/31/2023 5:47 AM EDT LAB[facility]ATORY [facility] RDW 12.7 11.5 - 15.5 % 08/31/2023 5:47 AM EDT LABORATORY GM PLT 219 140 - 400 K/uL 08/31/2023 5:47 AM EDT LABORATORY GM MPV 10.2 6.6 - 11.1 fL 08/31/2023 5:47 AM EDT LABORATORY GM nRBCs 0 <=0 /100 WBCs 08/31/2023 5:47 AM EDT LABORATORY C Blood Venous blood specimen / Unknown Venipuncture / Unknown 08/31/2023 5:08 AM EDT 08/31/2023 5:34 AM EDT Geovanni Johnson PA-C LAB BLOOD OR DERABLES Performing Organization Address [facility] de Phone Number LABORATORY [facility] [address] [place] [address] * HEROIN, URINE CONFIRMATION (08/30/2023 11:53 PM EDT) Methodology LC-MS/MS 09/02/2023 12:26 PM EDT LABORATORY C 6-Monoacetylmor phine Negative Negative 09/02/2023 12:26 PM EDT LABORATORY [facility] Urine Non-blood Collection / Unknown 08/30/2023 11:53 PM EDT 08/31/2023 12:03 AM EDT Narrative LABORATORY [facility] - 09/02/2023 12:26 PM EDT Cutoff Concentrations: Drug Level 6-Monoacetylmorphine 5 ng/mL This test was developed and its performance characteristics determined by [employer]. It has not been cleared or approved by the [place] Food and Drug Administration. Rhona Mendiola DO LAB URINE ORDERABLES Performing Organization Address [facility] de Phone Number LABORATORY [place] [address] [place] [address] * (ABNORMAL) OPIOIDS, URINE CONFIRMATION (08/30/2023 11:53 PM EDT) Methodology LC-MS/MS 09/02/2023 12:26 PM EDT LABORATORY [facility] Codeine Negative Negative 09/02/2023 12:26 PM EDT LABORATORY [facility] Morphine 2,457(H) Negative ng/mL 09/02/2023 12:26 PM EDT LAB[facility]ATORY [facility] Hydrocodone Negative Negative 09/02/2023 12:26 PM EDT LAB[facility]ATORY [facility] Hydromorphone 162(H) Negative ng/mL 09/02/2023 12:26 PM EDT LAB[facility]ATORY [facility] Dihydrocodeine Negative Negative 09/02/2023 12:26 PM EDT LABOR[facility]ORY [facility] Oxycodone 198(H) Negative ng/mL 09/02/2023 12:26 PM EDT LABORATORY [facility] Oxymorphone Negative Negative 09/02/2023 12:26 PM EDT LABORATORY [facility] Urine Non-blood Collection / Unknown 08/30/2023 11:53 PM EDT 08/31/2023 12:03 AM EDT Narrative LABORATORY [facility] - 09/02/2023 12:26 PM EDT Cutoff Concentrations: Drug Level Codeine 40 ng/mL Morphine 40 ng/mL Hydrocodone 40 ng/mL Hydromorphone 40 ng/mL Dihydrocodeine 40 ng/mL Oxycodone 50 ng/mL Oxymorphone 50 ng/mL This test was developed and its performance characteristics determined by [employer]. It has not been cleared or approved by the [place] Food and Drug Administration. Rhona Mendiola DO LAB URINE ORDERABLES LABORATORY [facility] [address] [place] [address] * (ABNORMAL) URINALYSIS, REFLEX TO CULTURE (08/30/2023 11:53 PM EDT) Color, Urine Light Yellow Colorless, Light Yellow, Yellow, Dark Yellow 08/31/2023 12:55 AM EDT LABORATORY [facility] Clarity, Urine Clear Clear 08/31/2023 12:55 AM EDT LABORATORY [facility] Glucose, Urine Negative Negative mg/dL 08/31/2023 12:55 AM EDT LABORATORY [facility] Bilirubin, Urine Negative Negative 08/31/2023 12:55 AM EDT LABORATORY [facility] Ketone, Urine Trace(A) Negative mg/dL 08/31/2023 12:55 AM EDT LABORATORY [facility] Specific [place], Urine >1.050(H) 1.003 - 1.030 08/31/2023 12:55 AM EDT LABORATORY [facility] Blood, Urine Negative Negative 08/31/2023 12:55 AM EDT LABORATORY [facility] pH, Urine 6.5 5.0 - 7.5 Units 08/31/2023 12:55 AM EDT LABORATORY [facility] Protein, Urine Trace(A) Negative mg/dL 08/31/2023 12:55 AM EDT LABORATORY [facility] Urobilinogen, Urine Normal Normal mg/dL 08/31/2023 12:55 AM EDT LAB[facility]ATORY [facility] Nitrite, Urine Negative Negative 08/31/2023 12:55 AM EDT LAB[facility]ATORY [facility] Esterase, Urine Negative Negative 08/31/2023 12:55 AM EDT LABORATORY [facility] RBC, Urine 0-2 0 - 2 /HPF 08/31/2023 12:55 AM EDT LABORATORY [facility] WBC, Urine 0-2 0 - 2 /HPF 08/31/2023 12:55 AM EDT LAB[facility]ATORY [facility] Bacteria, Urine 0-25 0 - 25 /HPF 08/31/2023 12:55 AM EDT LAB[facility]ATORY [facility] Culture, Urine 08/31/2023 12:55 AM EDT LAB[facility]ATORY [facility] Comment:Culture not indicate d by urinalysis results Urine Urine specimen obtained by clean catch procedure / Unknown Non-blood Collection / Unknown 08/30/2023 11:53 PM EDT 08/31/2023 12:03 AM EDT [facility]INE [facility]LES Performing Organization Address City/[facility] Co de Phone Number LABORATORY [place] [address] [place] [address] * URINALYSIS, REFLEX TO CULTURE (CUP ONLY) (08/30/2023 11:53 PM EDT) Urinalysis, Reflex to Culture Specimen Specimen collected and received 08/31/2023 2:01 AM EDT LABORATORY [facility] Urine Urine specimen obtained by clean catch procedure / Unknown Non-blood Collection / Unknown 08/30/2023 11:53 PM EDT 08/31/2023 12:03 AM EDT [place] LAB URINE ORDERABLES Performing Organization Address City/[facility]/ZIP Co de Phone Number LABORATORY [facility] [address] [place] [address] * CULTURE, URINE, QUANTITATIVE (08/30/2023 11:53 PM EDT) Culture Growth No significant growth 09/01/2023 7:54 AM EDT LABORATORY [facility] Urine Urine specimen obtained by clean catch procedure / Unknown Non-blood Collection / Unknown 08/30/2023 11:53 PM EDT 08/31/2023 12:02 AM EDT Rhona Mendiola DO LAB MICRO - GENERAL ORDERABLES LABORATORY [facility] [address] [place] [address] * (ABNORMAL) TOXICOLOGY, URINESCREEN W/ CONFIRMATION (08/30/2023 11:53 PM EDT) Amphetamine Negative Negative 08/31/2023 12:22 AM EDT LABORATORY [facility] Benzodiazepines Negative Negative 12:22 AM EDT LABORATORY [facility] Cannabinoids Negative Negative 08/31/2023 12:22 AM EDT LAB[facility]ATORY [facility] Cocaine Metabolite Negative Negative 2022 12:22 AM EDT LABORATORY [facility] Fentanyl Positive(A) Negative 08/31/2023 12:22 AM EDT LAB[facility]ATORY [facility] Hydrocodone / Hydromorphone Negative Negative 08/31/2023 12:22 AM EDT LABORATORY [facility] Methadone Metabolite Negative Negative 08/31/2023 12:22 AM EDT LAB[facility]ATORY [facility] Morphine / Codeine Positive(A) Negative 08/31 12:22 AM EDT LAB[facility]ATORY [facility] Oxycodone / Oxymorphone Positive(A) Negative 08/31/2023 12:22 AM EDT LABORATORY [facility] Urine Non-blood Collection / Unknown 08/30/2023 11:53 PM EDT 08/31/2023 12:03 AM EDT Narrative LABORATORY [facility] - 08/31/2023 12:22 AM EDT Cutoff Concentrations: Drug Level Amphetamines 500 ng/mL Benzodiazepines 100 ng/mL Cannabinoids 50 ng/mL Cocaine Metabolite 150 ng/mL Fentanyl 1 ng/mL Hydrocodone / Hydromorphone 300 ng/mL Methadone Metabolite 100 ng/mL Morphine / Codeine 300 ng/mL Oxycodone / Oxymorphone 100 ng/mL Screening results are presumptive and can only be used for medical purposes. Positive screening results are reflexed to confirmatory testing. Rhona Mendiola DO LAB URINE ORDERABLES LABORATORY [facility] [address] [place] [address] * CT 3D RECONSTRUCTION MUSCULOSKELETAL (08/30/2023 1:37 PM EDT) Anatomical Region Laterality Modality 3drecon, Musculoskeletal, An kle, Elbow, Femur, Foot, Hip, Knee, Scapula, Shoulder, Wrist, Hand, HUMERUS, Forearm, TibFib Computed Tomography 08/30/2023 3:58 PM EDT Impressions 08/30/2023 4:31 PM EDT IMPRESSION 1. Comminuted displaced left distal tibial fracture with intra-articular extension. 2. Comminuted displaced left distal fibular fracture. I have personally reviewed this examination and agree with the resident/fellow physician's interpretation. Narrative 08/30/2023 4:[address] SCAN OF THE LT LWREXT; 3DRECON; 3D CT RECONSTRUCTIONS OF THE LT LWREXT; 3DRECON-08/30/2023 HISTORY Status post trauma of the left lower extremity, evaluate tibial and fibular fractures. COMPARISON Left lower extremity x-rays 08/30/2023. TECHNIQUE Computed tomography of the left lower extremity was performed without intravenous contrast. Coronal and sagittal reformatted images were provided. 3D reconstructions of the left lower extremity were created on a separate workstation. Maximal intensity projections and surface rendered images were provided. FINDINGS Bones: Comminuted tibial fracture with intra-articular extension and comminution from distal diaphysis to the tibial plafond and 10 mm medial displacement of the largest distal fragment. Comminuted distal fibula fracture with 8.5 mm medial (tibial) displacement of the distal fragment. Os trigonum. Soft Tissues: Small ankle joint hemarthrosis and diffuse soft tissue edema of the left lower extremity. Other: Left lower extremity in cast. 3D CT RECONSTRUCTION: These additional images aid in demonstrating and confirming the findings discussed in the above report. Procedure Note Kade Garcia MD - 08/30/[address] SCAN OF THE LT LWREXT; 3DRECON; 3D CT RECONSTRUCTIONS OF THE LT LWREXT;3DRECON-08/30/2023 HISTORY Status post trauma of the left lower extremity, evaluate tibial andfibular fractures. COMPARISON Left lower extremity x-rays 08/30/2023. TECHNIQUE Computed tomography of the left lower extremity was performed withoutintravenous contrast. Coronal and sagittal reformatted images wereprovided. 3D reconstructions of the left lower extremity were created on a separateworkstation. Maximal intensity projections and surface rendered imageswere provided. FINDINGS Bones: Comminuted tibial fracture with intra-articular extension andcomminution from distal diaphysis to the tibial plafond and 10 mm medialdisplacement of the largest distal fragment. Comminuted distal fibulafracture with 8.5 mm medial (tibial) displacement of the distal fragment.Os trigonum. Soft Tissues: Small ankle joint hemarthrosis and diffuse soft tissue edemaof the left lower extremity. Other: Left lower extremity in cast. 3D CT RECONSTRUCTION: These additional images aid in demonstrating and confirming the findingsdiscussed in the above report. IMPRESSION IMPRESSION 1. Comminuted displaced left distal tibial fracture with intra- articularextension. 2. Comminuted displaced left distal fibular fracture. I have personally reviewed this examination and agree with the resident/fellow physician's interpretation. Alla Padilla PA-C RAD CT * CT LOWER EXTREMITY LEFT WO CONTRAST (08/30/2023 1:37 PM EDT) Anatomical Region Laterality Modality Lower Extremity, Ankle, Femu r, Foot, Hip, Knee, Musculoskeletal, TibFib Computed Tomography 08/30/2023 3:58 PM EDT Impressions 08/30/2023 4:31 PM EDT IMPRESSION 1. Comminuted displaced left distal tibial fracture with intra-articular extension. 2. Comminuted displaced left distal fibular fracture. I have personally reviewed this examination and agree with the resident/fellow physician's interpretation. Narrative 08/30/2023 4:[address] SCAN OF THE LT LWREXT; 3DRECON; 3D CT RECONSTRUCTIONS OF THE LT LWREXT; 3DRECON-08/30/2023 HISTORY Status post trauma of the left lower extremity, evaluate tibial and fibular fractures. COMPARISON Left lower extremity x-rays 08/30/2023. TECHNIQUE Computed tomography of the left lower extremity was performed without intravenous contrast. Coronal and sagittal reformatted images were provided. 3D reconstructions of the left lower extremity were created on a separate workstation. Maximal intensity projections and surface rendered images were provided. FINDINGS Bones: Comminuted tibial fracture with intra-articular extension and comminution from distal diaphysis to the tibial plafond and 10 mm medial displacement of the largest distal fragment. Comminuted distal fibula fracture with 8.5 mm medial (tibial) displacement of the distal fragment. Os trigonum. Soft Tissues: Small ankle joint hemarthrosis and diffuse soft tissue edema of the left lower extremity. Other: Left lower extremity in cast. 3D CT RECONSTRUCTION: These additional images aid in demonstrating and confirming the findings discussed in the above report. Procedure Note Kade Garcia MD - 08/30/[address] SCAN OF THE LT LWREXT; 3DRECON; 3D CT RECONSTRUCTIONS OF THE LT LWREXT;3DRECON-08/30/2023 HISTORY Status post trauma of the left lower extremity, evaluate tibial andfibular fractures. COMPARISON Left lower extremity x-rays 08/30/2023. TECHNIQUE Computed tomography of the left lower extremity was performed withoutintravenous contrast. Coronal and sagittal reformatted images wereprovided. 3D reconstructions of the left lower extremity were created on a separateworkstation. Maximal intensity projections and surface rendered imageswere provided. FINDINGS Bones: Comminuted tibial fracture with intra-articular extension andcomminution from distal diaphysis to the tibial plafond and 10 mm medialdisplacement of the largest distal fragment. Comminuted distal fibulafracture with 8.5 mm medial (tibial) displacement of the distal fragment.Os trigonum. Soft Tissues: Small ankle joint hemarthrosis and diffuse soft tissue edemaof the left lower extremity. Other: Left lower extremity in cast. 3D CT RECONSTRUCTION: These additional images aid in demonstrating and confirming the findingsdiscussed in the above report. IMPRESSION IMPRESSION 1. Comminuted displaced left distal tibial fracture with intra- articularextension. 2. Comminuted displaced left distal fibular fracture. I have personally reviewed this examination and agree with the resident/fellow physician's interpretation. Alla Padilla PA-C RAD CT * XR FOOT 2 VIEWS (08/30/2023 12:40 PM EDT) Anatomical Region Laterality Modality Foot, Lower Extremity Computed R adiography 08/30/2023 1:44 PM EDT Impressions 08/30/2023 1:42 PM EDT IMPRESSION Comminuted displaced distal left tib-fib fractures. Narrative 08/30/2023 1:42 PM EDT EXAM LT XR KNEE 1-2 VIEWS; XR TIB/FIB 2 VIEWS; XR FEMUR MINIMUM 2 VIEWS; XR ANKLE 3 OR MORE VIEWS; XR FOOT 2 VIEWS , 08/30/2023 12:40 pm HISTORY 89 y/o withtrauma, building collapse COMPARISON None. Patient is a trauma number at the time of dictation. TECHNIQUE Three views left femur Two views left knee Two views left tib-fib Three views left ankle Two views left foot FINDINGS Femur: No fracture or dislocation. Soft tissues unremarkable. Knee: No fracture or dislocation. No significant effusion. Tib-fib: Comminuted displaced fractures of the distal tibia and fibula diaphysis. Likely overlying contusions. Ankle: Distal tib-fib fractures as above. No definite fracture extension into the ankle. Mortise appears symmetric. No significant ankle effusion. Os trigonum. Foot: No apparent fracture or dislocation. Posterior calcaneus excluded. Procedure Note Elmo Ladd II, MD - 08/30/2023 EXAM LT XR KNEE 1-2 VIEWS; XR TIB/FIB 2 VIEWS; XR FEMUR MINIMUM 2 VIEWS; XRANKLE 3 OR MORE VIEWS; XR FOOT 2 VIEWS , 08/30/2023 12:40 pm HISTORY 89 y/o withtrauma, building collapse COMPARISON None. Patient is a trauma number at the time of dictation. TECHNIQUE Three views left femur Two views left knee Two views left tib-fib Three views left ankle Two views left foot FINDINGS Femur: No fracture or dislocation. Soft tissues unremarkable. Knee: No fracture or dislocation. No significant effusion. Tib-fib: Comminuted displaced fractures of the distal tibia and fibuladiaphysis. Likely overlying contusions. Ankle: Distal tib-fib fractures as above. No definite fracture extensioninto the ankle. Mortise appears symmetric. No significant ankleeffusion. Os trigonum. Foot: No apparent fracture or dislocation. Posterior calcaneusexcluded. IMPRESSION IMPRESSION Comminuted displaced distal left tib-fib fractures. Haleigh Salas [facility] ([facility]) * XR ANKLE 3 OR MORE VIEWS (08/30/2023 12:40 PM EDT) Anatomical Region Laterality Modality Ankle, Lower Extremity Computed Radiography 08/30/2023 1:44 PM EDT Impressions 08/30/2023 1:42 PM EDT IMPRESSION Comminuted displaced distal left tib-fib fractures. Narrative 08/30/2023 1:42 PM EDT EXAM LT XR KNEE 1-2 VIEWS; XR TIB/FIB 2 VIEWS; XR FEMUR MINIMUM 2 VIEWS; XR ANKLE 3 OR MORE VIEWS; XR FOOT 2 VIEWS , 08/30/2023 12:40 pm HISTORY 89 y/o withtrauma, building collapse COMPARISON None. Patient is a trauma number at the time of dictation. TECHNIQUE Three views left femur Two views left knee Two views left tib-fib Three views left ankle Two views left foot FINDINGS Femur: No fracture or dislocation. Soft tissues unremarkable. Knee: No fracture or dislocation. No significant effusion. Tib-fib: Comminuted displaced fractures of the distal tibia and fibula diaphysis. Likely overlying contusions. Ankle: Distal tib-fib fractures as above. No definite fracture extension into the ankle. Mortise appears symmetric. No significant ankle effusion. Os trigonum. Foot: No apparent fracture or dislocation. Posterior calcaneus excluded. Procedure Note Elmo Ladd II, MD - 08/30/2023 EXAM LT XR KNEE 1-2 VIEWS; XR TIB/FIB 2 VIEWS; XR FEMUR MINIMUM 2 VIEWS; XRANKLE 3 OR MORE VIEWS; XR FOOT 2 VIEWS , 08/30/2023 12:40 pm HISTORY 89 y/o withtrauma, building collapse COMPARISON None. Patient is a trauma number at the time of dictation. TECHNIQUE Three views left femur Two views left knee Two views left tib-fib Three views left ankle Two views left foot FINDINGS Femur: No fracture or dislocation. Soft tissues unremarkable. Knee: No fracture or dislocation. No significant effusion. Tib-fib: Comminuted displaced fractures of the distal tibia and fibuladiaphysis. Likely overlying contusions. Ankle: Distal tib-fib fractures as above. No definite fracture extensioninto the ankle. Mortise appears symmetric. No significant ankleeffusion. Os trigonum. Foot: No apparent fracture or dislocation. Posterior calcaneusexcluded. IMPRESSION IMPRESSION Comminuted displaced distal left tib-fib fractures. Haleigh Mary Josue [facility] * XR TIB/FIB 2 VIEWS (08/30/2023 12:40 PM EDT) Anatomical Region Laterality Modality Lower Extremity, TibFib Computed Radiography 08/30/2023 1:44 PM EDT Impressions 08/30/2023 1:42 PM EDT IMPRESSION Comminuted displaced distal left tib-fib fractures. Narrative 08/30/2023 1:42 PM EDT EXAM LT XR KNEE 1-2 VIEWS; XR TIB/FIB 2 VIEWS; XR FEMUR MINIMUM 2 VIEWS; XR ANKLE 3 OR MORE VIEWS; XR FOOT 2 VIEWS , 08/30/2023 12:40 pm HISTORY 89 y/o withtrauma, building collapse COMPARISON None. Patient is a trauma number at the time of dictation. TECHNIQUE Three views left femur Two views left knee Two views left tib-fib Three views left ankle Two views left foot FINDINGS Femur: No fracture or dislocation. Soft tissues unremarkable. Knee: No fracture or dislocation. No significant effusion. Tib-fib: Comminuted displaced fractures of the distal tibia and fibula diaphysis. Likely overlying contusions. Ankle: Distal tib-fib fractures as above. No definite fracture extension into the ankle. Mortise appears symmetric. No significant ankle effusion. Os trigonum. Foot: No apparent fracture or dislocation. Posterior calcaneus excluded. Procedure Note Elmo Ladd II, MD - 08/30/2023 EXAM LT XR KNEE 1-2 VIEWS; XR TIB/FIB 2 VIEWS; XR FEMUR MINIMUM 2 VIEWS; XRANKLE 3 OR MORE VIEWS; XR FOOT 2 VIEWS , 08/30/2023 12:40 pm HISTORY 89 y/o withtrauma, building collapse COMPARISON None. Patient is a trauma number at the time of dictation. TECHNIQUE Three views left femur Two views left knee Two views left tib-fib Three views left ankle Two views left foot FINDINGS Femur: No fracture or dislocation. Soft tissues unremarkable. Knee: No fracture or dislocation. No significant effusion. Tib-fib: Comminuted displaced fractures of the distal tibia and fibuladiaphysis. Likely overlying contusions. Ankle: Distal tib-fib fractures as above. No definite fracture extensioninto the ankle. Mortise appears symmetric. No significant ankleeffusion. Os trigonum. Foot: No apparent fracture or dislocation. Posterior calcaneusexcluded. IMPRESSION IMPRESSION Comminuted displaced distal left tib-fib fractures. Haleigh [facility] ([facility]) * XR KNEE 1-2 VIEWS (08/30/2023 12:40 PM EDT) Anatomical Region Laterality Modality Knee, Lower Extremity Computed R adiography 08/30/2023 1:44 PM EDT Impressions 08/30/2023 1:42 PM EDT IMPRESSION Comminuted displaced distal left tib-fib fractures. Narrative 08/30/2023 1:42 PM EDT EXAM LT XR KNEE 1-2 VIEWS; XR TIB/FIB 2 VIEWS; XR FEMUR MINIMUM 2 VIEWS; XR ANKLE 3 OR MORE VIEWS; XR FOOT 2 VIEWS , 08/30/2023 12:40 pm HISTORY 89 y/o withtrauma, building collapse COMPARISON None. Patient is a trauma number at the time of dictation. TECHNIQUE Three views left femur Two views left knee Two views left tib-fib Three views left ankle Two views left foot FINDINGS Femur: No fracture or dislocation. Soft tissues unremarkable. Knee: No fracture or dislocation. No significant effusion. Tib-fib: Comminuted displaced fractures of the distal tibia and fibula diaphysis. Likely overlying contusions. Ankle: Distal tib-fib fractures as above. No definite fracture extension into the ankle. Mortise appears symmetric. No significant ankle effusion. Os trigonum. Foot: No apparent fracture or dislocation. Posterior calcaneus excluded. Procedure Note Elmo Ladd II, MD - 08/30/2023 EXAM LT XR KNEE 1-2 VIEWS; XR TIB/FIB 2 VIEWS; XR FEMUR MINIMUM 2 VIEWS; XRANKLE 3 OR MORE VIEWS; XR FOOT 2 VIEWS , 08/30/2023 12:40 pm HISTORY 89 y/o withtrauma, building collapse COMPARISON None. Patient is a trauma number at the time of dictation. TECHNIQUE Three views left femur Two views left knee Two views left tib-fib Three views left ankle Two views left foot FINDINGS Femur: No fracture or dislocation. Soft tissues unremarkable. Knee: No fracture or dislocation. No significant effusion. Tib-fib: Comminuted displaced fractures of the distal tibia and fibuladiaphysis. Likely overlying contusions. Ankle: Distal tib-fib fractures as above. No definite fracture extensioninto the ankle. Mortise appears symmetric. No significant ankleeffusion. Os trigonum. Foot: No apparent fracture or dislocation. Posterior calcaneusexcluded. IMPRESSION IMPRESSION Comminuted displaced distal left tib-fib fractures. Haleigh Salas [facility] ([facility]) * XR FEMUR MINIMUM 2 VIEWS (08/30/2023 12:40 PM EDT) Anatomical Region Laterality Modality Femur, Lower Extremity, Hip Comp uted Radiography 08/30/2023 1:44 PM EDT Impressions 08/30/2023 1:42 PM EDT IMPRESSION Comminuted displaced distal left tib-fib fractures. Narrative 08/30/2023 1:42 PM EDT EXAM LT XR KNEE 1-2 VIEWS; XR TIB/FIB 2 VIEWS; XR FEMUR MINIMUM 2 VIEWS; XR ANKLE 3 OR MORE VIEWS; XR FOOT 2 VIEWS , 08/30/2023 12:40 pm HISTORY 89 y/o withtrauma, building collapse COMPARISON None. Patient is a trauma number at the time of dictation. TECHNIQUE Three views left femur Two views left knee Two views left tib-fib Three views left ankle Two views left foot FINDINGS Femur: No fracture or dislocation. Soft tissues unremarkable. Knee: No fracture or dislocation. No significant effusion. Tib-fib: Comminuted displaced fractures of the distal tibia and fibula diaphysis. Likely overlying contusions. Ankle: Distal tib-fib fractures as above. No definite fracture extension into the ankle. Mortise appears symmetric. No significant ankle effusion. Os trigonum. Foot: No apparent fracture or dislocation. Posterior calcaneus excluded. Procedure Note Elmo Ladd II, MD - 08/30/2023 EXAM LT XR KNEE 1-2 VIEWS; XR TIB/FIB 2 VIEWS; XR FEMUR MINIMUM 2 VIEWS; XRANKLE 3 OR MORE VIEWS; XR FOOT 2 VIEWS , 08/30/2023 12:40 pm HISTORY 89 y/o withtrauma, building collapse COMPARISON None. Patient is a trauma number at the time of dictation. TECHNIQUE Three views left femur Two views left knee Two views left tib-fib Three views left ankle Two views left foot FINDINGS Femur: No fracture or dislocation. Soft tissues unremarkable. Knee: No fracture or dislocation. No significant effusion. Tib-fib: Comminuted displaced fractures of the distal tibia and fibuladiaphysis. Likely overlying contusions. Ankle: Distal tib-fib fractures as above. No definite fracture extensioninto the ankle. Mortise appears symmetric. No significant ankleeffusion. Os trigonum. Foot: No apparent fracture or dislocation. Posterior calcaneusexcluded. IMPRESSION IMPRESSION Comminuted displaced distal left tib-fib fractures. Haleigh [facility] ([facility]) * CTA NECK (08/30/2023 12:07 PM EDT) Anatomical Region Laterality Modality Neck, Head, Cspine, Spine Comput ed Tomography 08/30/2023 12:1 9 PM EDT Impressions 08/30/2023 12:[address] HEAD: No acute intracranial hemorrhage or calvarial fracture. CT CERVICAL SPINE: No acute fracture deformity or traumatic subluxation. CTA NECK: No evidence of traumatic blunt cerebrovascular injury, including dissection. Narrative 08/30/2023 12:[address] HEAD WITHOUT CONTRAST; CT CERVICAL SPINE WITHOUT CONTRAST; CTA NECK WITH CONTRAST - 08/30/2023 HISTORY Status post fall. TECHNIQUE Unenhanced CT images of the brain and cervical spine were obtained from the skull base to vertex. Multiplanar coronal and sagittal reconstructions are provided. Thin-section CT angiography of the neck was then performed. CPR and 3D reconstructions were generated on a separate workstation. COMPARISON None available. Anonymous temporary demographics applied for emergent case. FINDINGS CT HEAD: No acute intracranial hemorrhage or calvarial fracture. There is no territorial transcortical infarct. No hydrocephalus, downward herniation, midline shift, mass effect or extra-axial fluid collections are demonstrated. Overall brain is normal in volume and morphology with expected size and configuration of the ventricles, basilar cisterns and extra axial CSF spaces. Unremarkable orbits. Tympanomastoid cavities are well aerated. CT CERVICAL SPINE: Alignment is anatomic, with preserved lordosis. No acute fracture deformity or traumatic subluxation is demonstrated. Vertebral body heights are maintained. No discernable epidural hematoma. Prevertebral soft tissues are not thickened. There are mild multilevel degenerative changes without significant spinal canal stenosis or neural foraminal narrowing. CTA NECK: No evidence of traumatic blunt cerebrovascular injury, including dissection. Normal anatomic branching of the great vessels from the aortic arch. No significant stenosis of the arch and great vessel origins. The common carotids, bifurcations, and internal cervical carotid arteries are patent. External carotid arteries are patent. Pronounced tortuosity of the distal cervical ICAs. No significant vertebral artery ostial stenosis is demonstrated, and the extracranial portions are patent throughout the neck. Anatomic variant prolonged right V1 extraforaminal course. Cervical soft tissues are grossly unremarkable without suspicious mass or lymphadenopathy. The paranasal sinuses are clear. Procedure Note Cedric Pham MD - 08/30/[address] HEAD WITHOUT CONTRAST; CT CERVICAL SPINE WITHOUT CONTRAST; CTA NECKWITH CONTRAST - 08/30/2023 HISTORY Status post fall. TECHNIQUE Unenhanced CT images of the brain and cervical spine were obtained fromthe skull base to vertex. Multiplanar coronal and sagittalreconstructions are provided. Thin- section CT angiography of the neck wasthen performed. CPR and 3D reconstructions were generated on a separateworkstation. COMPARISON None available. Anonymous temporary demographics applied for emergentcase. FINDINGS CT HEAD: No acute intracranial hemorrhage or calvarial fracture. There is no territorial transcortical infarct. No hydrocephalus, downwardherniation, midline shift, mass effect or extra-axial fluid collectionsare demonstrated. Overall brain is normal in volume and morphology with expected size andconfiguration of the ventricles, basilar cisterns and extra axial CSFspaces. Unremarkable orbits. Tympanomastoid cavities are well aerated. CT CERVICAL SPINE: Alignment is anatomic, with preserved lordosis. No acute fracture deformity or traumatic subluxation is demonstrated. Vertebral body heights are maintained. No discernable epidural hematoma. Prevertebral soft tissues are notthickened. There are mild multilevel degenerative changes without significant spinalcanal stenosis or neural foraminal narrowing. CTA NECK: No evidence of traumatic blunt cerebrovascular injury, includingdissection. Normal anatomic branching of the great vessels from the aortic arch. Nosignificant stenosis of the arch and great vessel origins. The commoncarotids, bifurcations, and internal cervical carotid arteries are patent.External carotid arteries are patent. Pronounced tortuosity of the distalcervical ICAs. No significant vertebral artery ostial stenosis is demonstrated, and theextracranial portions are patent throughout the neck. Anatomic variantprolonged right V1 extraforaminal course. Cervical soft tissues are grossly unremarkable without suspicious mass orlymphadenopathy. The paranasal sinuses are clear. IMPRESSION IMPRESSION CT HEAD: No acute intracranial hemorrhage or calvarial fracture. CT CERVICAL SPINE: No acute fracture deformity or traumatic subluxation. CTA NECK: No evidence of traumatic blunt cerebrovascular injury, includingdissection. Rhona Mendiola DO RAD CT * CT C SPINE WO CONTRAST (08/30/2023 12:07 PM EDT) Anatomical Region Laterality Modality Cspine, Spine, Neck, Vertebra Co mputed Tomography 08/30/2023 12:1 9 PM EDT Impressions 08/30/2023 12:[address] HEAD: No acute intracranial hemorrhage or calvarial fracture. CT CERVICAL SPINE: No acute fracture deformity or traumatic subluxation. CTA NECK: No evidence of traumatic blunt cerebrovascular injury, including dissection. Narrative 08/30/2023 12:[address] HEAD WITHOUT CONTRAST; CT CERVICAL SPINE WITHOUT CONTRAST; CTA NECK WITH CONTRAST - 08/30/2023 HISTORY Status post fall. TECHNIQUE Unenhanced CT images of the brain and cervical spine were obtained from the skull base to vertex. Multiplanar coronal and sagittal reconstructions are provided. Thin-section CT angiography of the neck was then performed. CPR and 3D reconstructions were generated on a separate workstation. COMPARISON None available. Anonymous temporary demographics applied for emergent case. FINDINGS CT HEAD: No acute intracranial hemorrhage or calvarial fracture. There is no territorial transcortical infarct. No hydrocephalus, downward herniation, midline shift, mass effect or extra-axial fluid collections are demonstrated. Overall brain is normal in volume and morphology with expected size and configuration of the ventricles, basilar cisterns and extra axial CSF spaces. Unremarkable orbits. Tympanomastoid cavities are well aerated. CT CERVICAL SPINE: Alignment is anatomic, with preserved lordosis. No acute fracture deformity or traumatic subluxation is demonstrated. Vertebral body heights are maintained. No discernable epidural hematoma. Prevertebral soft tissues are not thickened. There are mild multilevel degenerative changes without significant spinal canal stenosis or neural foraminal narrowing. CTA NECK: No evidence of traumatic blunt cerebrovascular injury, including dissection. Normal anatomic branching of the great vessels from the aortic arch. No significant stenosis of the arch and great vessel origins. The common carotids, bifurcations, and internal cervical carotid arteries are patent. External carotid arteries are patent. Pronounced tortuosity of the distal cervical ICAs. No significant vertebral artery ostial stenosis is demonstrated, and the extracranial portions are patent throughout the neck. Anatomic variant prolonged right V1 extraforaminal course. Cervical soft tissues are grossly unremarkable without suspicious mass or lymphadenopathy. The paranasal sinuses are clear. Procedure Note Cedric Pham MD - 08/30/[address] HEAD WITHOUT CONTRAST; CT CERVICAL SPINE WITHOUT CONTRAST; CTA NECKWITH CONTRAST - 08/30/2023 HISTORY Status post fall. TECHNIQUE Unenhanced CT images of the brain and cervical spine were obtained fromthe skull base to vertex. Multiplanar coronal and sagittalreconstructions are provided. Thin- section CT angiography of the neck wasthen performed. CPR and 3D reconstructions were generated on a separateworkstation. COMPARISON None available. Anonymous temporary demographics applied for emergentcase. FINDINGS CT HEAD: No acute intracranial hemorrhage or calvarial fracture. There is no territorial transcortical infarct. No hydrocephalus, downwardherniation, midline shift, mass effect or extra-axial fluid collectionsare demonstrated. Overall brain is normal in volume and morphology with expected size andconfiguration of the ventricles, basilar cisterns and extra axial CSFspaces. Unremarkable orbits. Tympanomastoid cavities are well aerated. CT CERVICAL SPINE: Alignment is anatomic, with preserved lordosis. No acute fracture deformity or traumatic subluxation is demonstrated. Vertebral body heights are maintained. No discernable epidural hematoma. Prevertebral soft tissues are notthickened. There are mild multilevel degenerative changes without significant spinalcanal stenosis or neural foraminal narrowing. CTA NECK: No evidence of traumatic blunt cerebrovascular injury, includingdissection. Normal anatomic branching of the great vessels from the aortic arch. Nosignificant stenosis of the arch and great vessel origins. The commoncarotids, bifurcations, and internal cervical carotid arteries are patent.External carotid arteries are patent. Pronounced tortuosity of the distalcervical ICAs. No significant vertebral artery ostial stenosis is demonstrated, and theextracranial portions are patent throughout the neck. Anatomic variantprolonged right V1 extraforaminal course. Cervical soft tissues are grossly unremarkable without suspicious mass orlymphadenopathy. The paranasal sinuses are clear. IMPRESSION IMPRESSION CT HEAD: No acute intracranial hemorrhage or calvarial fracture. CT CERVICAL SPINE: No acute fracture deformity or traumatic subluxation. CTA NECK: No evidence of traumatic blunt cerebrovascular injury, includingdissection. Rhona M Maury DO RAD CT * CT HEAD/BRAIN WO CONTRAST (08/30/2023 12:07 PM EDT) Anatomical Region Laterality Modality Head Computed Tomogra phy 08/30/2023 12:1 9 PM EDT Impressions 08/30/2023 12:[address] HEAD: No acute intracranial hemorrhage or calvarial fracture. CT CERVICAL SPINE: No acute fracture deformity or traumatic subluxation. CTA NECK: No evidence of traumatic blunt cerebrovascular injury, including dissection. Narrative 08/30/2023 12:[address] HEAD WITHOUT CONTRAST; CT CERVICAL SPINE WITHOUT CONTRAST; CTA NECK WITH CONTRAST - 08/30/2023 HISTORY Status post fall. TECHNIQUE Unenhanced CT images of the brain and cervical spine were obtained from the skull base to vertex. Multiplanar coronal and sagittal reconstructions are provided. Thin-section CT angiography of the neck was then performed. CPR and 3D reconstructions were generated on a separate workstation. COMPARISON None available. Anonymous temporary demographics applied for emergent case. FINDINGS CT HEAD: No acute intracranial hemorrhage or calvarial fracture. There is no territorial transcortical infarct. No hydrocephalus, downward herniation, midline shift, mass effect or extra-axial fluid collections are demonstrated. Overall brain is normal in volume and morphology with expected size and configuration of the ventricles, basilar cisterns and extra axial CSF spaces. Unremarkable orbits. Tympanomastoid cavities are well aerated. CT CERVICAL SPINE: Alignment is anatomic, with preserved lordosis. No acute fracture deformity or traumatic subluxation is demonstrated. Vertebral body heights are maintained. No discernable epidural hematoma. Prevertebral soft tissues are not thickened. There are mild multilevel degenerative changes without significant spinal canal stenosis or neural foraminal narrowing. CTA NECK: No evidence of traumatic blunt cerebrovascular injury, including dissection. Normal anatomic branching of the great vessels from the aortic arch. No significant stenosis of the arch and great vessel origins. The common carotids, bifurcations, and internal cervical carotid arteries are patent. External carotid arteries are patent. Pronounced tortuosity of the distal cervical ICAs. No significant vertebral artery ostial stenosis is demonstrated, and the extracranial portions are patent throughout the neck. Anatomic variant prolonged right V1 extraforaminal course. Cervical soft tissues are grossly unremarkable without suspicious mass or lymphadenopathy. The paranasal sinuses are clear. Procedure Note Cedric Pham MD - 08/30/[address] HEAD WITHOUT CONTRAST; CT CERVICAL SPINE WITHOUT CONTRAST; CTA NECKWITH CONTRAST - 08/30/2023 HISTORY Status post fall. TECHNIQUE Unenhanced CT images of the brain and cervical spine were obtained fromthe skull base to vertex. Multiplanar coronal and sagittalreconstructions are provided. Thin- section CT angiography of the neck wasthen performed. CPR and 3D reconstructions were generated on a separateworkstation. COMPARISON None available. Anonymous temporary demographics applied for emergentcase. FINDINGS CT HEAD: No acute intracranial hemorrhage or calvarial fracture. There is no territorial transcortical infarct. No hydrocephalus, downwardherniation, midline shift, mass effect or extra-axial fluid collectionsare demonstrated. Overall brain is normal in volume and morphology with expected size andconfiguration of the ventricles, basilar cisterns and extra axial CSFspaces. Unremarkable orbits. Tympanomastoid cavities are well aerated. CT CERVICAL SPINE: Alignment is anatomic, with preserved lordosis. No acute fracture deformity or traumatic subluxation is demonstrated. Vertebral body heights are maintained. No discernable epidural hematoma. Prevertebral soft tissues are notthickened. There are mild multilevel degenerative changes without significant spinalcanal stenosis or neural foraminal narrowing. CTA NECK: No evidence of traumatic blunt cerebrovascular injury, includingdissection. Normal anatomic branching of the great vessels from the aortic arch. Nosignificant stenosis of the arch and great vessel origins. The commoncarotids, bifurcations, and internal cervical carotid arteries are patent.External carotid arteries are patent. Pronounced tortuosity of the distalcervical ICAs. No significant vertebral artery ostial stenosis is demonstrated, and theextracranial portions are patent throughout the neck. Anatomic variantprolonged right V1 extraforaminal course. Cervical soft tissues are grossly unremarkable without suspicious mass orlymphadenopathy. The paranasal sinuses are clear. IMPRESSION IMPRESSION CT HEAD: No acute intracranial hemorrhage or calvarial fracture. CT CERVICAL SPINE: No acute fracture deformity or traumatic subluxation. CTA NECK: No evidence of traumatic blunt cerebrovascular injury, includingdissection. [facility] CT CHEST/ABDOMEN/PELVIS WITH IV CONTRAST WITHOUT ORAL CONTRAST (08/30/2023 12:07 PM EDT) Anatomical Region Laterality Modality Body, Chest, Abdomen, Pelvis, Cardio Computed Tomography 08/30/2023 12:2 4 PM EDT Impressions 08/30/2023 12:21 PM EDT IMPRESSION 1. No acute traumatic injury identified in the chest abdomen pelvis. 2. Multiple pulmonary nodules measuring up to 6 mm. Follow-up chest CT in 6-12 months. 3. Other findings as above. Narrative 08/30/2023 12:21 PM EDT EXAM EXAM: CT CHEST/ABDOMEN/PELVIS WITH IV CONTRAST WITHOUT ORAL CONTRAST DATE TIME: 08/30/2023 12:07 pm TECHNIQUE Oral Contrast: Not administered. IV Contrast: Administered. HISTORY trauma COMPARISON None. Patient is a trauma number at the time of dictation. FINDINGS LINES AND DEVICES: None. CHEST: LUNGS: 6 mm right lower lobe pulmonary nodule solid. Solid 5 mm nodule right upper lobe. 3 mm nodule left upper lobe. Several other smaller nodules annotated on series 6. Dependent atelectasis. LARGE AIRWAYS: Patent. PLEURA: No pleural effusion. CARDIOVASCULAR: No pericardial effusion.Central pulmonary arteries are patent. Normal caliber aorta.. LYMPH NODES: Not enlarged. ESOPHAGUS: Nondistended. CHEST WALL/SOFT TISSUES: Within normal limits. ABDOMEN/PELVIS: LIVER: Within normal limits. BILE DUCTS: Within normal limits. GALLBLADDER: Within normal limits. PANCREAS: Within normal limits. SPLEEN: Within normal limits. Small splenules. ADRENALS: Within normal limits. KIDNEYS/URETERS: Too small to characterize hypodense lesion right lower pole is probably a cyst. BOWEL: Not dilated. Scattered colonic diverticula without focal inflammation. Normal appendix. BLADDER: Partially distended. REPRODUCTIVE ORGANS: Within normal limits. LYMPH NODES: Not enlarged. Prominent right lower quadrant mesenteric lymph nodes are likely reactive. VESSELS: No abdominal aortic aneurysm. PERITONEUM/RETROPERITONEUM: No ascites, free air, or fluid collections. ABDOMINAL WALL/SOFT TISSUES: Within normal limits. BONES: Lumbosacral transitional vertebral body with bilateral pseudoarticulation. Procedure Note Elmo Ladd II, MD - 08/30/2023 EXAM EXAM: CT CHEST/ABDOMEN/PELVIS WITH IV CONTRAST WITHOUT ORAL CONTRAST DATE TIME: 08/30/2023 12:07 pm TECHNIQUE Oral Contrast: Not administered. IV Contrast: Administered. HISTORY trauma COMPARISON None. Patient is a trauma number at the time of dictation. FINDINGS LINES AND DEVICES: None. CHEST: LUNGS: 6 mm right lower lobe pulmonary nodule solid. Solid 5 mm noduleright upper lobe. 3 mm nodule left upper lobe. Several other smallernodules annotated on series 6. Dependent atelectasis. LARGE AIRWAYS: Patent. PLEURA: No pleural effusion. CARDIOVASCULAR: No pericardial effusion.Central pulmonary arteries arepatent. Normal caliber aorta.. LYMPH NODES: Not enlarged. ESOPHAGUS: Nondistended. CHEST WALL/SOFT TISSUES: Within normal limits. ABDOMEN/PELVIS: LIVER: Within normal limits. BILE DUCTS: Within normal limits. GALLBLADDER: Within normal limits. PANCREAS: Within normal limits. SPLEEN: Within normal limits. Small splenules. ADRENALS: Within normal limits. KIDNEYS/URETERS: Too small to characterize hypodense lesion right lowerpole is probably a cyst. BOWEL: Not dilated. Scattered colonic diverticula without focalinflammation. Normal appendix. BLADDER: Partially distended. REPRODUCTIVE ORGANS: Within normal limits. LYMPH NODES: Not enlarged. Prominent right lower quadrant mesentericlymph nodes are likely reactive. VESSELS: No abdominal aortic aneurysm. PERITONEUM/RETROPERITONEUM: No ascites, free air, or fluid collections. ABDOMINAL WALL/SOFT TISSUES: Within normal limits. BONES: Lumbosacral transitional vertebral body with bilateralpseudoarticulation. IMPRESSION IMPRESSION 1. No acute traumatic injury identified in the chest abdomen pelvis. 2. Multiple pulmonary nodules measuring up to 6 mm. Follow-up chest CT in6-12 months. 3. Other findings as above. [facility] RAD CT * XR CHEST 1 VIEW (08/30/2023 11:58 AM EDT) Anatomical Region Laterality Modality Chest Computed Radiogr aphy 08/30/2023 12:2 6 PM EDT Impressions 08/30/2023 12:24 PM EDT IMPRESSION No acute findings. CT to follow. Narrative 08/30/2023 12:24 PM EDT EXAM XR CHEST 1 VIEW - 08/30/2023 11:58 am HISTORY trauma COMPARISON None. Patient is a trauma number at the time of dictation. TECHNIQUE AP view of the chest. FINDINGS Support apparatus: None. No specific consolidations, pleural effusion or pneumothorax. Prominent mediastinal silhouette likely vasculature. Pulmonary vasculature likely within normal limits. Procedure Note Elmo Ladd II, MD - 08/30/2023 EXAM XR CHEST 1 VIEW - 08/30/2023 11:58 am HISTORY trauma COMPARISON None. Patient is a trauma number at the time of dictation. TECHNIQUE AP view of the chest. FINDINGS Support apparatus: None. No specific consolidations, pleural effusion or pneumothorax. Prominentmediastinal silhouette likely vasculature. Pulmonary vasculature likelywithin normal limits. IMPRESSION IMPRESSION No acute findings. CT to follow. [facility] RADIOLOGY (RAD GENER AL) * ABO/RH (08/30/2023 11:50 AM EDT) ABO A 08/30/2023 12:39 PM EDT [facility] Rh Positive 08/30/2023 12:39 PM EDT LAB[facility] Blood Venous blood specimen / Unknown Venipuncture / Unknown 08/30/2023 11:50 AM EDT 08/30/2023 11:58 AM EDT Rhona Mendiola DO LAB BLOOD BANK TEST ORDERABLES [facility]AT[facility] [address] [place] [address] * DIFFERENTIAL, AUTOMATED (08/30/2023 11:50 AM EDT) WBC 10.16 4.00 - 10.80 K/uL 08/30/2023 12:03 PM EDT [facility] Neutrophils % 73.6 40.0 - 75.0 % 08/30/2023 12:03 PM EDT [facility] Lymphocytes % 18.3 18.0 - 42.0 % 08/30/2023 12:03 PM EDT [facility] Monocytes % 5.1 1.0 - 11.0 % 08/30/2023 12:03 PM EDT [facility] Eosinophils % 1.0 0.0 - 6.0 % 08/30/2023 12:03 PM EDT [facility] Basophils % 0.5 0.0 - 2.0 % 08/30/2023 12:03 PM EDT [facility] Immature Granulocytes % 1.5 0.0 - 2.0 % 08/30/2023 12:03 PM EDT [facility] Absolute Neutrophils 7.48 1.80 - 7.70 K/uL 08/30/2023 12:03 PM EDT LAB[facility] Absolute Lymphocytes 1.86 1.00 - 4.80 K/ul 08/30/2023 12:03 PM EDT LAB[facility] Absolute Monocytes 0.52 0.00 - 1.10 K/uL 08/30/2023 12:03 PM EDT [facility] Absolute Eosinophils 0.10 0.00 - 0.70 K/uL 08/30/2023 12:03 PM EDT [facility] Absolute Basophils 0.05 0.00 - 0.20 K/uL 08/30/2023 12:03 PM EDT LAB[facility] Absolute Immature Granulocytes 0.15 0.00 - 0.20 K/uL 08/30/2023 12:03 PM EDT [facility] Blood Venous blood specimen / Unknown Venipuncture / Unknown 08/30/2023 11:50 AM EDT 08/30/2023 11:58 AM EDT Rhona Park On[facility] DO LAB BLOOD ORDERABLES LABORATORY [facility] [address] [place] [address] * CBC (08/30/2023 11:50 AM EDT) [facility] WBC 10.16 4.00 - 10.80 K/uL 08/30/2023 12:03 PM EDT LAB[facility]ATORY [facility] RBC 5.16 4.50 - 5.25 M/uL 08/30/2023 12:03 PM EDT LAB[facility] HGB 15.2 14.0 - 16.8 g/dL 08/30/2023 12:03 PM EDT LAB[facility] HCT 45.5 40.0 - 48.4 % 08/30/2023 12:03 PM EDT [facility] MCV 88.2 82.0 - 99.5 fL 08/30/2023 12:03 PM EDT [facility] MCH 29.5 27.0 - 34.0 pg 08/30/2023 12:03 PM EDT LAB[facility] MCHC 33.4 32.0 - 36.0 g/dL 08/30/2023 12:03 PM EDT LAB[facility] RDW 12.3 11.5 - 15.5 % 08/30/2023 12:03 PM EDT LAB[facility] PLT 273 140 - 400 K/uL 08/30/2023 12:03 PM EDT [facility] MPV 10.2 6.6 - 11.1 fL 08/30/2023 12:03 PM EDT LABORATORY [facility] nRBCs 0 <=0 /100 WBCs 08/30/2023 12:03 PM EDT LAB[facility] Blood Venous blood specimen / Unknown Venipuncture / Unknown 08/30/2023 11:50 AM EDT 08/30/2023 11:58 AM EDT Rhona Park Onursal DO LAB BLOOD ORDERABLES [facility] [address] [place] [address] * TYPE AND SCREEN (08/30/2023 11:50 AM EDT) ABO A 08/30/2023 12:36 PM EDT [facility] Rh Positive 08/30/2023 12:36 PM EDT LAB[facility] Red Blood Cell Antibody Screen Negative 08/30/2023 12:36 PM EDT LAB[facility]AT[facility] Specimen Expiration Date 09/02/2023 23:59 08/30/2023 12:36 PM EDT LAB[facility]AT[facility] Blood Venous blood specimen / Unknown Venipuncture / Unknown 08/30/2023 11:50 AM EDT 08/30/2023 11:58 AM EDT [facility] TEST ORDERABLES Performing Organization Address City/[facility] Co de Phone Number LABORATORY [facility] [address] [place] [address] * (ABNORMAL) LACTATE (08/30/2023 11:50 AM EDT) Pathologist [facility] Lactate 2.1(H) 0.4 - 2.0 mmol/L 08/30/2023 12:22 PM EDT LAB[facility] Blood Venous blood specimen / Unknown Venipuncture / Unknown 08/30/2023 11:50 AM EDT 08/30/2023 11:58 AM EDT Rhona Jean [facility] LAB BLOOD ORDERABLES [facility] [address] [place] [address] * ETHANOL, MEDICAL (08/30/2023 11:50 AM EDT) Pathologist [facility] ETHANOL, MEDICAL Negative Negative 08/30/2023 12:22 PM EDT [facility] Blood Venous blood specimen / Unknown Venipuncture / Unknown 08/30/2023 11:50 AM EDT 08/30/2023 11:58 AM EDT Rhona Jean Baptisteursal DO LAB BLOOD ORDERABLES [facility] [address] [place] [address] * (ABNORMAL) BASIC METABOLIC PANEL (08/30/2023 11:50 AM EDT) BUN 17 6 - 20 mg/dL 08/30/2023 12:22 PM EDT LAB[facility] Creatinine 1.1 0.6 - 1.2 mg/dL 08/30/2023 12:22 PM EDT LAB[facility] Estimated Glomerular Filtration Rate 08/30/2023 12:22 PM EDT LAB[facility] Comment: Glomerular filtration rate could not be calculated without patient sex information. eGFR is calculated based on the CKD-EPI 2020 equation Sodium 140 135 - 146 mmol/L 08/30/2023 12:22 PM EDT LAB[facility] Potassium 3.7 3.5 - 5.1 mmol/L 08/30/2023 12:22 PM EDT [facility] Chloride 104 98 - 107 mmol/L 08/30/2023 12:22 PM EDT LAB[facility] CO2 21(L) 22 - 32 mmol/L 08/30/2023 12:22 PM EDT [facility] Anion Gap 15 7 - 15 mmol/L 08/30/2023 12:22 PM EDT [facility] Glucose 96 70 - 120 mg/dL 08/30/2023 12:22 PM EDT [facility] Calcium 9.2 8.4 - 10.2 mg/dL 08/30/2023 12:22 PM EDT LAB[facility] Blood Venous blood specimen / Unknown Venipuncture / Unknown 08/30/2023 11:50 AM EDT 08/30/2023 11:58 AM EDT [facility] LAB BLOOD ORDERABLES [facility] [address] [place] [address] * AST (08/30/2023 11:50 AM EDT) AST 43 10 - 50 U/L 08/30/2023 12:22 PM EDT LAB[facility]ATORY [facility] Blood Venous blood specimen / Unknown Venipuncture / Unknown 08/30/2023 11:50 AM EDT 08/30/2023 11:58 AM EDT Rhona Park Onursal DO LAB BLOOD ORDERABLES Performing Organization Address City/[facility]/ZIP Co de Phone Number LAB[facility]ATORY [facility] [address] [place] [address] * APTT (08/30/2023 11:50 AM EDT) aPTT 27 21 - 38 seconds 08/30/2023 12:18 PM EDT [facility] Blood Venous blood specimen / Unknown Venipuncture / Unknown 08/30/2023 11:50 AM EDT 08/30/2023 11:58 AM EDT Narrative [facility] - 08/30/2023 12:18 PM EDT Anticoagulation may affect testing. Refer to [employer] Test Catalog for a list of effects. [facility]AB[facility] Performing Organization Address [facility] de Phone Number [facility] [address] [place] [address] * PT INR (08/30/2023 11:50 AM EDT) Prothrombin Time 13.6 11.6 - 15.2 seconds 08/30/2023 12:18 PM EDT [facility] INR 1.0 0.8 - 1.2 08/30/2023 12:18 PM EDT LAB[facility] Blood Venous blood specimen / Unknown Venipuncture / Unknown 08/30/2023 11:50 AM EDT 08/30/2023 11:58 AM EDT Narrative [facility] - 08/30/2023 12:18 PM EDT Warfarin Therapy INR: 2.0-3.0 conventional anticoagulation INR: 2.5-3.5 high intensity anticoagulation [facility] LAB BLOOD ORDERABLES Performing Organization Address City/[facility] Co de Phone Number LABORATORY [facility] [address] [place] [address] documented in this encounter Visit Diagnoses Diagnosis Closed fracture of left distal tibia- Primary Unspecified closed fracture of ankle Trauma Injury, other and unspecified, unspecified site documented in this encounter Administered Medications Inactive Administered Medications - up to 3 most recent administrations Medication Order MAR Action Action Date Dose Rate Site Acetaminophen (Tylenol) tab 975 mg 975 mg, Oral, Q8H, First dose on Viola 08/30/23 at 1400, Until Discontinued, Maximum 4 g acetaminophen/day. Avoid in patients with severe hepatic impairment or severe active liver disease. Use for 5 days. Given 09/03/2023 6:06 AM EDT 975 mg Given 09/02/2023 9:54 PM EDT 975 mg Given 09/02/2023 2:44 PM EDT 975 mg Carisoprodol (Soma) tab 350 mg 350 mg, Oral, Q6H PRN Muscle spasms, Starting on Viola 08/30/23 at 1213, Until 09/03/23 at 1845 Given 09/03/2023 6:06 AM EDT 350 mg Given 09/02/2023 9:54 PM EDT 350 mg Given 09/02/2023 2:53 PM EDT 350 mg ceFAZolin in dextrose (Ancef) ivpb 2 g 2 g, IV Piggyback, Q8H, 2 doses, First dose on Sun08/31/23 at 1400, Last dose on Sun08/31/23 at 2200, Post-op New Bag 08/31/2023 9:34 PM EDT 2 g 100 mL/hr New Bag 08/31/2023 4:27 PM EDT 2 g 100 mL/hr Docusate Sodium (Colace) cap 100 mg 100 mg, Oral, BID (.AM/PM), First dose on Viola 08/30/23 at 2100, Until Discontinued, For oral administration ONLY, if route of administration is other than oral and alternative product must be ordered. Given 09/03/2023 9:00 AM EDT 100 mg Given 09/02/2023 9:55 PM EDT 100 mg Given 09/02/2023 7:43 AM EDT 100 mg Enoxaparin (Lovenox) inj 110 mg 110 mg (rounded from 107 mg = 1 mg/kg 107 kg), Subcutaneous, Q12H (0600,1800), First dose (after last modification) on Sun09/02/23 at 1800, Until Discontinued, If patient is on warfarin, inform provider if daily INR value is 2 or greater! Given 09/03/2023 6:06 AM EDT 110 mg Abdom en Left Lower Given 09/02/2023 5:06 PM EDT 110 mg Ab domen Right Lower Enoxaparin (Lovenox) inj 50 mg 50 mg (rounded from 53.5 mg = 0.5 mg/kg 107 kg), Subcutaneous, Q12H (0600,1800), First dose on Sun08/31/23 at 1800, Until Discontinued, If patient is on warfarin, inform provider if daily INR value is 2 or greater! Given 09/02/2023 5:42 AM EDT 50 mg Abdom en Right Lower Given 09/01/2023 5:16 PM EDT 50 mg Ab domen Left Upper Given 09/01/2023 5:55 AM EDT 50 mg Ab domen Right Upper fentaNYL (PF) inj ONCE PRN NARRATOR, Starting on Viola 08/30/23 at 1143, Until Viola 08/30/23 at 1315 Given 08/30/2023 1:15 PM EDT 50 mcg Given 08/30/2023 11:43 AM EDT 50 mcg fentaNYL (PF) inj ONCE PRN NARRATOR, Starting on Viola 08/30/23 at 1303, Until Viola 08/30/23 at 1303 Given 08/30/2023 1:03 PM EDT 100 mcg fentaNYL (PF) inj ONCE PRN NARRATOR, Starting on Viola 08/30/23 at 1312, Until Viola 08/30/23 at 1312 Given 08/30/2023 1:12 PM EDT 50 mcg HYDROmorphone (Dilaudid) inj ONCE PRN NARRATOR, Starting on Viola 08/30/23 at 1210, Until Viola 08/30/23 at 1210 Given 08/30/2023 12:10 PM EDT 0.5 mg Ioversol (Optiray 350) 74 % inj 125 mL 125 mL, Intravenous, ONCE, On Viola 08/30/23 at 1245, For 1 dose, Radiology Medication Routing (Non-IR) Given 08/30/2023 12:45 PM EDT 125 mL isolyte-S pH 7.4 infusion Intravenous, at 100 mL/hr, Plasma-LYTE 148, isolyte-S, and isolyte-S pH 7.4 are considered equivalent - including for MAR barcode scanning., CONTINUOUS, Starting on Viola 08/30/23 at 1245, Until 09/01/23 at 1510 Restarted 08/31/2023 10:07 AM EDT Continue from Pre-Op 08/31/2023 10:06 AM EDT 10 0 mL/hr New Bag 08/30/2023 1:49 PM EDT 100 mL/hr ondansetron (Zofran) inj 4 mg 4 mg, IV Push, Q6H PRN Other, May use for nausea or vomiting if patient unable to take oral ondansetron, Starting on Viola 08/30/23 at 1213, Until 09/03/23 at 1845 Given 08/31/2023 5:04 PM EDT 4 mg ondansetron (Zofran) inj 4 mg 4 mg, IV Push, Q6H PRN Nausea, Starting on Sun08/31/23 at 0950, Until Sun08/31/23 at 1543, For 1 day, Administer only during the first hour post-op in PACU., PACU Given 08/31/2023 1:10 PM EDT 4 mg ondansetron ODT (Zofran) tab 4 mg 4 mg, On Tongue, Q6H PRN Nausea, Vomiting, Starting on Viola 08/30/23 at 1213, Until 09/03/23 at 1845 Given 09/03/2023 6:06 AM EDT 4 mg oxyCODONE (Oxy IR) tab 10 mg 10 mg, Oral, Q4H PRN Pain, Severe, Starting on Viola 08/30/23 at 1213, Until 09/03/23 at 1845, Hold for somnolence or respiratory rate less than 10 Given 09/03/2023 9:00 AM EDT 10 mg Given 09/03/2023 3:37 AM EDT 10 mg Given 09/02/2023 6:07 PM EDT 10 mg oxyCODONE (Oxy IR) tab 5 mg 5 mg, Oral, Q4H PRN Pain, Moderate, Starting on Viola 08/30/23 at 1213, Until 09/03/23 at 1845, Hold for somnolence or respiratory rate less than 10 Given 09/02/2023 12:36 PM EDT 5 mg Given 08/30/2023 4:37 PM EDT 5 mg senna (Senokot) 2 Tablet 2 Tablet, Oral, BID (.AM/PM), First dose on Viola 08/30/23 at 2100, Until Discontinued, hold if patient have loose stool or frequent bowel movements Given 09/03/2023 9:00 AM EDT 2 Tablets Given 09/02/2023 9:55 PM EDT 2 Tablets Given 09/02/2023 7:43 AM EDT 2 Tablets documented in this encounter Active and Recently Administered Medications Times are shown in EDT. Scheduled Medication Order 09/01/2023 09/02/2023 09/03/2023 Acetaminophen (Tylenol) tab 975 mg 975 mg, Oral, Q8H, First dose on Viola 08/30/23 at 1400, Until Discontinued, Maximum 4 g acetaminophen/day. Avoid in patients with severe hepatic impairment or severe active liver disease. Use for 5 days. 0555 (Given - Provider: Maggy Bishop RN)1331 (Given - Provider: Lenka Roque RN)2106 (Given - Provider: Maggy Bishop RN) 0542 (Given - Provider: Maggy Bishop RN)1444 (Given - Provider: Lenka Roque RN)2154 (Given - Provider: Maggy Bishop RN) 0606 (Given - Provider: Maggy Bishop RN)1400 (Due) Docusate Sodium (Colace) cap 100 mg 100 mg, Oral, BID (.AM/PM), First dose on Viola 08/30/23 at 2100, Until Discontinued, For oral administration ONLY, if route of administration is other than oral and alternative product must be ordered. 0742 (Given - Provider: Lenka Roque RN)2107 (Given - Provider: Maggy Bishop RN) 0743 (Given - Provider: Lenka Roque RN)2155 (Given - Provider: Maggy Bishop RN) 0900 (Given - Provider: Nataliia Connell RN) Enoxaparin (Lovenox) inj 110 mg 110 mg (rounded from 107 mg = 1 mg/kg 107 kg), Subcutaneous, Q12H (0600,1800), First dose (after last modification) on Sun09/02/23 at 1800, Until Discontinued, If patient is on warfarin, inform provider if daily INR value is 2 or greater! 1706 (Given - Provider: Lenka Roque RN) 0606 (Given - Provider: Maggy Bishop RN) Enoxaparin (Lovenox) inj 50 mg (CANCELED) 50 mg (rounded from 53.5 mg = 0.5 mg/kg 107 kg), Subcutaneous, Q12H (0600,1800), First dose on Sun08/31/23 at 1800, Until Discontinued, If patient is on warfarin, inform provider if daily INR value is 2 or greater! 0555 (Given - Provider: Maggy Bishop RN)1716 (Given - Provider: Lenka Roque RN) 0542 (Given - Provider: Maggy Bishop RN) senna (Senokot) 2 Tablet 2 Tablet, Oral, BID (.AM/PM), First dose on Viola 08/30/23 at 2100, Until Discontinued, hold if patient have loose stool or frequent bowel movements 0742 (Given - Provider: Lenka Roque RN)210 (Given - Provider: Maggy Bishop RN) 0743 (Given - Provider: Lenka Roque, ZORAIDA)2155 (Given - Provider: Maggy Bishop RN) 0900 (Given - Provider: Nataliia Connell, ZORAIDA) PRN Medication Order 09/01/2023 09/02/2023 09/03/2023 Carisoprodol (Soma) tab 350 mg 350 mg, Oral, Q6H PRN Muscle spasms, Starting on Viola 08/30/23 at 1213, Until 09/03/23 at 1845 0811 (Given - Provider: Lenka Roque RN)2107 (Given - Provider: Maggy Bishop RN) 0743 (Given - Provider: Lenka Roque RN)1453 (Given - Provider: Lenka Roque RN)2154 (Given - Provider: Maggy Bishop RN) 0606 (Given - Provider: Maggy Bishop RN) ondansetron (Zofran) inj 4 mg(Linked Group 1) 4 mg, IV Push, Q6H PRN Other, May use for nausea or vomiting if patient unable to take oral ondansetron, Starting on Viola 08/30/23 at 1213, Until 09/03/23 at 1845 0606 (See Alternativ e - Provider: Maggy Bishop RN) ondansetron ODT (Zofran) tab 4 mg(Linked Group 1) 4 mg, On Tongue, Q6H PRN Nausea, Vomiting, Starting on Viola 08/30/23 at 1213, Until 09/03/23 at 1845 0606 (Given - Provider: Maggy Bishop RN) oxyCODONE (Oxy IR) tab 10 mg 10 mg, Oral, Q4H PRN Pain, Severe, Starting on Viola 08/30/23 at 1213, Until 09/03/23 at 1845, Hold for somnolence or respiratory rate less than 10 1226 (Given - Provider: Lenka Roque RN)1838 (Given - Provider: Lenka Roque RN) 0324 (Given - Provider: Maggy Bishop RN)1807 (Given - Provider: Lenka Roque RN) 0337 (Given - Provider: Maricruz Stephens RN)0900 (Given - Provider: Nataliia Connell, ZORAIDA) oxyCODONE (Oxy IR) tab 5 mg 5 mg, Oral, Q4H PRN Pain, Moderate, Starting on Viola 08/30/23 at 1213, Until 09/03/23 at 1845, Hold for somnolence or respiratory rate less than 10 1236 (Given - Provider: Lenka Roque RN) Linked Groups Order Group 1: ondansetron ODT (Zofran) tab 4 mgJump to med 4 mg, On Tongue, Q6H PRN Nausea, Vomiting, Starting on Viola 08/30/23 at 1213, Until 09/03/23 at 1845 Or ondansetron (Zofran) inj 4 mgJump to med 4 mg, IV Push, Q6H PRN Other, May use for nausea or vomiting if patient unable to take oral ondansetron, Starting on Viola 08/30/23 at 1213, Until 09/03/23 at 1845 documented in this encounter Advance Directives Latest Code Status on File Code Status Date Activated Date Inactivated Comments Full Code 08/30/2023 12:14 PM 09/03/2023 6:45 PM Th is order reflects the patients wishes and were consensually agreed upon. Question Answer Comments Discussion of Advance Directives occurred with: Patient
--- OUTSIDE RECORDS SUMMARY | 2023-10-11 16:15 | External Medical Summary | Summary of Care ---
Author Name Unknown Organization [facility] Address [address] [place] [address] Phone [phone] Care Team Providers Care Field Technician Name Role Phone Unavailable Primary Care Provider Unavailabl e Reason for Visit * Reason Onset Date Comments Test Results 08/30/2023 Unexpected or In determinate Result Encounter Details Date Type Department Care Team (Late st Contact Info) Description 08/30/2023 Telephone Laboratory, [place] [address] [place] [address] Maury Rhonarenan Park DO [address] [place] [address] Test Results (Unexpected or Indeterminate ... Allergies No known active allergiesdocumented as of this encounter (statuses as of 08/30/2023) Medications Medication Sig Dispensed Refills Start Date End Date Status Rivaroxaban 10 MG Oral Tablet (Xarelto) Take 1 Tablet by mouth in the morning. 0 Active Acetaminophen 500 MG Oral Tablet (Tylenol) Take 2 Tablets by mouth every 6 hours as needed for Fever >38C(100.5F) or Pain, Moderate. 0 Active documented as of this encounter (statuses as of 08/30/2023) Social History Tobacco Use Types Packs/Day Years Used Date Smoking Tobacco: Never Assessed Sex and Gender Information Value Date Recorded Sex Assigned at Not on file Gender Identity Not on file Sexual Orientation Not on file documented as of this encounter Miscellaneous Notes * Telephone Encounter - DEBORAH Vasquez - 08/30/2023 12:33 PM EDT Hello- The radiologist discovered an unexpected or indeterminate finding on [employer] TRAUMA ([id number]) and asks that you review the following report. Study Type:CT CHEST/ABDOMEN/PELVIS WITH IV CONTRAST WITHOUT ORAL CONTRAST Date of Study: 08/30/2023 IMPRESSION 1. No acute traumatic injury identified in the chest abdomen pelvis. 2. Multiple pulmonary nodules measuring up to 6 mm. Follow-up chest CT in 6-12 months. 3. Other findings as above. Please respond to this encounter to acknowledge receipt of this message and take responsibility to ensure this report is reviewed. Thank you, DEBORAH Vasquez Client Service [facility] documented in this encounter Plan of Treatment Health Maintenance Due Date Last Done Comments COVID-19 Vaccine (#1) 05/05/1871 Depression Screening 11/05/1882 DTaP,Tdap,and Td Vaccines (1 - Tdap) 11/05/1889 Zoster Vaccines (1 of 2) 11/05/1920 Pneumococcal Vaccine: 65+ Ye ars (1 - PCV) 11/05/1935 Influenza Vaccine (FLU shot) (#1) 2023 GARDASIL-HPV IMMUNIZATION SERIES Aged Out No longer eligible based on patient's age to complete this topic Hepatitis B Aged Out No longer eligi ble based on patient's age to complete this topic MENINGOCOCCAL (MENACTRA/MENVEO) Aged Out No longer eligible based on patient's age to complete this topic documented as of this encounter Medical Devices Not on filedocumented as of this encounter Advance Directives Latest Code Status on File Code Status Date Activated Date Inactivated Comments Full Code 08/30/2023 12:14 PM This ord er reflects the patients wishes and were consensually agreed upon. Question Answer Comments Discussion of Advance Directives occurred with: Patient
--- OUTSIDE RECORDS SUMMARY | 2023-10-11 16:15 | External Medical Summary ---
Author Name Unknown Address Unknown Organization [id number]:LABORATORY [facility] [place] - [facility] [address] [facility] [address] Laboratory Report Ordering Provider Test Date Status DAVID CHAVEZPRATIK 08/30/2023 23:53:12 Final Cutoff Concentrations:
D rug Level
Codeine 40 ng/mL
Morphine 40 ng/mL
Hydrocodone 40 ng/mL
Hydromorphone 40 ng/mL
Dihydrocodeine 40 ng/mL
Oxycodone 50 ng/mL
Oxymorphone 50 ng/mL

This test was developed and its performance characteristics determined by [employer]. It has not been cleared or approved by the [place] Food and Drug Administration. Observation Date Value Abnormality Reference (Units ) Status METHODOLOGY 08/30/2023 23:53:12 LC-MS/MS Final Codeine 08/30/2023 23:53:12 Negative Negative Final Morphine, Urine confirmatory 08/30/2023 23:53:12 2457 Above high normal Negative (ng/mL) Final HYDROcodone cutoff [Mass/volume] in Urine for Confirmatory method 08/30/2023 23:53:12 Negative Negative Final Hydromorphone, Urine confirmatory 08/30/2023 23:53:12 162 Above high normal Negative (ng/mL) Final Dihydrocodeine [Mass/volume] in Urine by Confirmatory method 08/30/2023 23:53:12 Negative Negative Final oxyCODONE cutoff [Mass/volume] in Urine for Confirmatory method 08/30/2023 23:53:12 198 Above high normal Negative (ng/mL) Final oxyMORphone cutoff [Mass/volume] in Urine for Confirmatory method 08/30/2023 23:53:12 Negative Negative Final Performing Location LABORATORY [place] [address] [facility] [address]
--- OUTSIDE RECORDS SUMMARY | 2023-10-11 16:15 | External Medical Summary ---
Author Name Unknown Address Unknown Organization [id number]:[place]ATORY [facility] [place] [address] [facility] [address] Laboratory Report Ordering Provider Test Date Status AGUILAR MOORE 08/31/2023 05:08:00 Final Observation Date Value Abnormality Reference (Units ) Status Magnesium 08/31/2023 05:08:00 2.5 1.5-2.6 (m g/dL) Final Performing Location LABORATORY [facility] - [address] [place] [id number]
--- OUTSIDE RECORDS SUMMARY | 2023-10-11 16:15 | External Medical Summary ---
Author Name Unknown Address Unknown Organization K01:LABORATORY [place] [address] [place] [address] Laboratory Report Ordering Provider Test Date Status KATHYLETITIA08/30/2023 23:53:12 Final Cutoff Concentrations:
D rug \X09\\X09\ Level
6-Monoacetylmorphine 5 ng/mL

This test was developed and its performance characteristics determined by [employer]. It has not been cleared or approved by the [place] Food and Drug Administration. Observation Date Value Abnormality Reference (Units ) Status METHODOLOGY 08/30/2023 23:53:12 LC-MS/MS Final 6-Monoacetylmorphine (6-RU) [Presence] in Urine by Screen method 08/30/2023 23:53:12 Negative Negative Final Performing Location LABORATORY [place] [address] [facility] [address]
--- OUTSIDE RECORDS SUMMARY | 2023-10-11 16:15 | External Medical Summary ---
Author Name Unknown Address Unknown Organization [id number]:LABORATORY [facility] [place] - [facility] [address] [facility] [address] Laboratory Report Ordering Provider Test Date Status LETITIA CHAVEZ08/30/2023 23:53:12 Final Cutoff Concentration:
Dr ug\X09\\X09\ Level
Fentanyl 10 ng/mL
Norfentanyl 2 ng/mL

This test was developed and its performance characteristics determined by [employer]. It has not been cleared or approved by the [place] Food and Drug Administration. Observation Date Value Abnormality Reference (Units ) Status METHODOLOGY 08/30/2023 23:53:12 LC-MS/MS Final fentaNYL+Norfentanyl [Presence] in Urine by Confirmatory method 08/30/2023 23:53:12 14 Above high normal Negative (ng/mL) Final fentaNYL+Norfentanyl [Presence] in Urine by Confirmatory method 08/30/2023 23:53:12 71 Above high normal Negative (ng/mL) Final Performing Location LABORATORY [facility] [place] - [facility] [address] [facility] [address]
--- OUTSIDE RECORDS SUMMARY | 2023-10-11 16:15 | External Medical Summary ---
Author Name Unknown Address Unknown Organization [id number]:LABORATORY [facility] [place] - [address] [facility] [address] Laboratory Report Ordering Provider Test Date Status KATHY,ONURSAL 08/30/2023 23:53:12 Final Observation Date Value Abnormality Reference (Units) Status Bacteria identified in Specimen by Culture 08/30/2023 23:53:12 No significant growth Final Test: Culture, Urine, Quanti tative
Specimen Source: Urine, Clean Catch
Specimen Type: Urine
Specimen Date: 08/30/2023 11:53 PM
Result Date: 09/01/2023 7:54 AM
Result Status: Final result
Resulting Lab: LABORATORY [facility] [place]
[address]
[place] [id number]

CULTURE

No significant growth

null Performing Location LABORATORY [facility] [place] - [address] [facility] [address]
--- OUTSIDE RECORDS SUMMARY | 2023-10-11 16:15 | External Medical Summary ---
Author Name Unknown Address Unknown Organization K01:LABORATORY [facility] - [address] [place] [address] [place] [address] Laboratory Report Ordering Provider Test Date Status AGUILAR MOORE 08/31/2023 05:08:00 Final Observation Date Value Abnormality Reference (Units ) Status Phosphate 08/31/2023 05:08:00 4.0 2.5-4.8 (m g/dL) Final Performing Location LABORATORY [facility] - [address] [place] [address]
--- OUTSIDE RECORDS SUMMARY | 2023-10-11 16:15 | External Medical Summary ---
Author Name Unknown Address Unknown Organization K01:LABORATORY [facility] [place] - [facility] [place]note 2[facility] [address] [address] Laboratory Report Ordering Provider Test Date Status AGUILAR MOORE 08/31/2023 05:08:00 Final Observation Date Value Abnormality Reference (Units ) Status BUN 08/31/2023 05:08:00 15 6-20 (mg/dL) Final Creatinine 08/31/2023 05:08:00 1.1 0.6-1.2 (mg/dL) Final Glomerular filtration rate/1.73 sq M.predicted [Volume Rate/Area] in Serum, Plasma or Blood by Creatinine-based formula (CKD-EPI) 08/31/2023 05:08:00 Final Glomerular filtration rate c ould not be calculated without patient sex information.
eGFR is calculated based on the CKD-EPI 2020 equation SODIUM 08/31/2023 05:08:00 140 135-146 (m mol/L) Final Potassium 08/31/2023 05:08:00 3.9 3.5-5.1 (m mol/L) Final Cl 08/31/2023 05:08:00 104 98-107 (mm ol/L) Final CO2 08/31/2023 05:08:00 25 22-32 (mmo l/L) Final Anion gap 08/31/2023 05:08:00 11 7-15 (mmol /L) Final Glucose 08/31/2023 05:08:00 87 70-120 (mg /dL) Final Calcium 08/31/2023 05:08:00 8.7 8.4-10.2 ( mg/dL) Final Performing Location LABORATORY [facility] [place] - [address] [address]
--- OUTSIDE RECORDS SUMMARY | 2023-10-11 16:15 | External Medical Summary ---
Author Name Unknown Address Unknown Organization K01:LABORATORY [facility] [place] - [address] [facility] [address] Laboratory Report Ordering Provider Test Date Status LETITIA CHAVEZURSPRATIK 08/30/2023 23:53:12 Final Observation Date Value Abnormality Reference (Units) Status Color of Urine by Auto 08/30/2023 23:53:12 Light Yellow Colorless, Light Yellow, Yellow, Dark Yellow Final Clarity, Urine 08/30/2023 23:53:12 Clear Clear Final Glucose [Mass/volume] in Urine by Automated test strip 08/30/2023 23:53:12 Negative Negative (mg/dL) Final Bilirubin.total [Presence] in Urine by Automated test strip 08/30/2023 23:53:12 Negative Negative Final Ketones [Mass/volume] in Urine by Automated test strip 08/30/2023 23:53:12 Trace Abnormal Negative (mg/dL) Final Specific gravity, Urine 08/30/2023 23:53:12 >1.050 Above high normal 1.003-1.030 Final Hemoglobin [Presence] in Urine by Automated test strip 08/30/2023 23:53:12 Negative Negative Final pH, Urine 08/30/2023 23:53:12 6.5 5.0-7.5 (Units) Final Protein [Mass/volume] in Urine by Automated test strip 08/30/2023 23:53:12 Trace Abnormal Negative (mg/dL) Final Urobilinogen [Mass/volume] in Urine by Automated test strip 08/30/2023 23:53:12 Normal Normal (mg/dL) Final Nitrite [Presence] in Urine by Automated test strip 08/30/2023 23:53:12 Negative Negative Final Leukocyte esterase [Presence] in Urine by Automated test strip 08/30/2023 23:53:12 Negative Negative Final RBC, Urine 08/30/2023 23:53:12 0-2 0-2 (/HPF) Final WBC, Urine 08/30/2023 23:53:12 0-2 0-2 (/HPF) Final Bacteria [#/area] in Urine sediment by Microscopy high power field 08/30/2023 23:53:12 0-25 0-25 (/HPF) Final CULTURE, URINE - [facility] 08/30/2023 23:53:12 Final Culture not indicated by uri nalysis results\X09\ Performing Location LABORATORY [facility] [place] - [facility] [address] [facility] [address]
--- OUTSIDE RECORDS SUMMARY | 2023-10-11 16:15 | External Medical Summary ---
Author Name Unknown Address Unknown Organization K01:LABORATORY [place] [address] [facility] [address] Laboratory Report Ordering Provider Test Date Status LETITIA CHAVEZURSVA 08/30/2023 23:53:12 Final Cutoff Concentrations:
Drug Level
Amphetamines 500 ng/mL
Benzodiazepines 100 ng/mL
Cannabinoids 50 ng/mL
Cocaine Metabolite 150 ng/mL
Fentanyl 1 ng/mL
Hydrocodone / Hydromorphone 300 ng/mL
Methadone Metabolite 100 ng/mL
Morphine / Codeine 300 ng/mL
Oxycodone / Oxymorphone 100 ng/mL

Screening results are presumptive and can only be used for medical purposes. Positive screening results are reflexed to confirmatory testing. Observation Date Value Abnormality Reference (Units ) Status Amphetamines, Urine screen 08/30/2023 23:53:12 Negative Negative Final Benzodiazepines, Urine screen 08/30/2023 23:53:12 Negative Negative Final Cannabinoids, Urine screen 08/30/2023 23:53:12 Negative Negative Final Cocaine Metabolite, Urine screen 08/30/2023 23:53:12 Negative Negative Final fentaNYL [Presence] in Urine by Screen method 08/30/2023 23:53:12 Positive Abnormal Negative Final HYDROcodone [Presence] in Urine by Screen method 08/30/2023 23:53:12 Negative Negative Final 3-Jbctneufgm-0,5-Dimeth yl-3,3-Diphenylpyrrolid ine (EDDP) [Presence] in Urine 08/30/2023 23:53:12 Negative Negative Final Opiates, Urine screen 08/30/2023 23:53:12 Positive Abnormal Negative Final oxyCODONE [Presence] in Urine by Screen method 08/30/2023 23:53:12 Positive Abnormal Negative Final Performing Location [place] [facility] [place] [address] [facility] [address]
--- OUTSIDE RECORDS SUMMARY | 2023-10-11 16:15 | External Medical Summary ---
Author Name Unknown Address Unknown Organization K01:LABORATORY [facility] [place] - [address] [address] Laboratory Report Ordering Provider Test Date Status AGUILAR MOORE 08/31/2023 05:08:00 Final Observation Date Value Abnormality Reference (Units ) Status WBC, Total 08/31/2023 05:08:00 6.54 4.00-10.80 (K/uL) Final RBC 08/31/2023 05:08:00 4.74 4.50-5.25 (M/uL) Final Hemoglobin 08/31/2023 05:08:00 13.9 Below low normal 14.0-16.8 (g/dL) Final HCT 08/31/2023 05:08:00 43.6 40.0-48.4 (%) Final MCV 08/31/2023 05:08:00 92.0 82.0-99.5 (fL) Final MCH 08/31/2023 05:08:00 29.3 27.0-34.0 (pg) Final MCHC 08/31/2023 05:08:00 31.9 32.0-36.0 (g/dL) Final RDW 08/31/2023 05:08:00 12.7 11.5-15.5 (%) Final Platelets 08/31/2023 05:08:00 219 140-400 (K/uL) Final MPV 08/31/2023 05:08:00 10.2 6.6-11.1 (fL) Final Nucleated erythrocytes/100 leukocytes [Ratio] in Blood by Automated count 08/31/2023 05:08:00 0 <=0 (/100 WBCs) Final Performing Location LABORATORY [facility] [place] - [address] [place] [address]
--- OUTSIDE RECORDS SUMMARY | 2023-10-11 16:16 | External Medical Summary ---
Author Name Unknown Address Unknown Organization K01:[place] [facility] [place] [facility] [facility] [place] [address] [address] Laboratory Report Ordering Provider Test Date Status KATHY,ONURSAL 08/30/2023 11:50:00 Final Observation Date Value Abnormality Reference (Units ) Status ABO 08/30/2023 11:50:00 A Final RH 08/30/2023 11:50:00 Positive Final Performing Location [facility] [facility] [place] [facility] [place] [address] [address]
--- OUTSIDE RECORDS SUMMARY | 2023-10-11 16:16 | External Medical Summary ---
Author Name Unknown Address Unknown Organization K01:[facility] [place] [facility] [place] [address] [address] Laboratory Report Ordering Provider Test Date Status KATHY,ONURSAL 08/30/2023 11:50:00 Final Observation Date Value Abnormality Reference (Units ) Status ABO 08/30/2023 11:50:00 A Final RH 08/30/2023 11:50:00 Positive Final RED BLOOD CELL ANTIBODY SCREEN 08/30/2023 11:50:00 Negative Final SPECIMEN EXPIRATION DATE 08/30/2023 11:50:00 09/02/2023 23:59 Final Performing Location LAB[facility] - [address] [address]
--- OUTSIDE RECORDS SUMMARY | 2023-10-11 16:16 | External Medical Summary ---
Author Name Unknown Address Unknown Organization K01:LABORATORY [facility] [place] - [address] [facility] [address] Laboratory Report Ordering Provider Test Date Status KATHY,ONURSAL 08/30/2023 11:50:00 Final Observation Date Value Abnormality Reference (Units ) Status Ethanol 08/30/2023 11:50:00 Negative Negative Final Performing Location LABORATORY [facility] [place] - [address] [facility] [address]
--- OUTSIDE RECORDS SUMMARY | 2023-10-11 16:16 | External Medical Summary ---
Author Name Unknown Address Unknown Organization K01:LABORATORY [place] [address] [place] [address] Laboratory Report Ordering Provider Test Date Status LETITIA CHAVEZURSPRATIK 08/30/2023 11:50:00 Final Observation Date Value Abnormality Reference (Units ) Status BUN 08/30/2023 11:50:00 17 6-20 (mg/dL) Final Creatinine 08/30/2023 11:50:00 1.1 0.6-1.2 (mg/dL) Final Glomerular filtration rate/1.73 sq M.predicted [Volume Rate/Area] in Serum, Plasma or Blood by Creatinine-based formula (CKD-EPI) 08/30/2023 11:50:00 Final Glomerular filtration rate c ould not be calculated without patient sex information.
eGFR is calculated based on the CKD-EPI 2020 equation SODIUM 08/30/2023 11:50:00 140 135-146 (m mol/L) Final Potassium 08/30/2023 11:50:00 3.7 3.5-5.1 (m mol/L) Final Cl 08/30/2023 11:50:00 104 98-107 (mm ol/L) Final CO2 08/30/2023 11:50:00 21 Below low normal 22- 32 (mmol/L) Final Anion gap 08/30/2023 11:50:00 15 7-15 (mmol /L) Final Glucose 08/30/2023 11:50:00 96 70-120 (mg /dL) Final Calcium 08/30/2023 11:50:00 9.2 8.4-10.2 ( mg/dL) Final Performing Location [place] [facility] [place] [facility] [place] [facility] [address] [place] [address]
--- OUTSIDE RECORDS SUMMARY | 2023-10-11 16:16 | External Medical Summary ---
Author Name Unknown Address Unknown Organization K01:LABORATORY [facility] [place] - [address] [facility] [address] Laboratory Report Ordering Provider Test Date Status [facility],ON08/30/2023 11:50:00 Final Observation Date Value Abnormality Reference (Units ) Status AST (Aspartate aminotransferase) 08/30/2023 11:50:00 43 10-50 (U/L) Final Performing Location LABORATORY [facility] - [address] [facility] [address]
--- OUTSIDE RECORDS SUMMARY | 2023-10-11 16:16 | External Medical Summary ---
Author Name Unknown Address Unknown Organization K01:LABORATORY [facility] [place] - [address] [facility] [address] Laboratory Report Ordering Provider Test Date Status KATHY,ONURS08/30/2023 11:50:00 Final Warfarin Therapy
INR: 2 .0-3.0 conventional anticoagulation
INR: 2.5- 3.5 high intensity anticoagulation Observation Date Value Abnormality Reference (Units ) Status PT 08/30/2023 11:50:00 13.6 11.6-15.2 (seconds) Final INR 08/30/2023 11:50:00 1.0 0.8-1.2 Final Performing Location LABORATORY [facility] [place] - [address] [facility] [address]
--- OUTSIDE RECORDS SUMMARY | 2023-10-11 16:16 | External Medical Summary ---
Author Name Unknown Address Unknown Organization K01:LABORATORY [place] [address] [facility] [address] Laboratory Report Ordering Provider Test Date Status KATHY,ONURSAL 08/30/2023 11:50:00 Final Observation Date Value Abnormality Reference (Units ) Status WBC, Total 08/30/2023 11:50:00 10.16 4.00-10.80 (K/uL) Final RBC 08/30/2023 11:50:00 5.16 4.50-5.25 (M/uL) Final Hemoglobin 08/30/2023 11:50:00 15.2 14.0-16.8 (g/dL) Final HCT 08/30/2023 11:50:00 45.5 40.0-48.4 (%) Final MCV 08/30/2023 11:50:00 88.2 82.0-99.5 (fL) Final MCH 08/30/2023 11:50:00 29.5 27.0-34.0 (pg) Final MCHC 08/30/2023 11:50:00 33.4 32.0-36.0 (g/dL) Final RDW 08/30/2023 11:50:00 12.3 11.5-15.5 (%) Final Platelets 08/30/2023 11:50:00 273 140-400 (K/uL) Final MPV 08/30/2023 11:50:00 10.2 6.6-11.1 (fL) Final Nucleated erythrocytes/100 leukocytes [Ratio] in Blood by Automated count 08/30/2023 11:50:00 0 <=0 (/100 WBCs) Final Performing Location LAB[facility]ATORY [facility] [place] - [address] [facility] [address]
--- OUTSIDE RECORDS SUMMARY | 2023-10-11 16:16 | External Medical Summary ---
Author Name Unknown Address Unknown Organization K01:LABORATORY [place] [address] [address] Laboratory Report Ordering Provider Test Date Status KATHY,ONURSAL 08/30/2023 11:50:00 Final Observation Date Value Abnormality Reference (Units ) Status SYNC LEUKOCYTES IN BLOOD BY AUTOMATED COUNT 08/30/2023 11:50:00 10.16 4.00-10.80 (K/uL) Final Segs 08/30/2023 11:50:00 73.6 40.0-75.0 (%) Final Lymphs % 08/30/2023 11:50:00 18.3 18.0-42.0 (%) Final Monos 08/30/2023 11:50:00 5.1 1.0-11.0 (%) Final Eosinophils 08/30/2023 11:50:00 1.0 0.0-6.0 (%) Final Basos 08/30/2023 11:50:00 0.5 0.0-2.0 (%) Final Immature Granulocyte, Percent 08/30/2023 11:50:00 1.5 0.0-2.0 (%) Final Absolute Segs 08/30/2023 11:50:00 7.48 1.80-7.70 (K/uL) Final Lymphs, absolute 08/30/2023 11:50:00 1.86 1.00-4.80 (K/ul) Final Monos, Abs 08/30/2023 11:50:00 0.52 0.00-1.10 (K/uL) Final Eos, Abs 08/30/2023 11:50:00 0.10 0.00-0.70 (K/uL) Final Basos, Abs 08/30/2023 11:50:00 0.05 0.00-0.20 (K/uL) Final Immature Granulocytes, Number 08/30/2023 11:50:00 0.15 0.00-0.20 (K/uL) Final Performing Location LABORATORY [facility] - [address] [facility] [address]
[2023-10-11] MEDS ORDERED: HYDROmorphone INJ 0.5 MG/0.5 ML SYR IV STA ×2 (16:23→21:13)
[2023-10-11 20:08] LABS: ANTI-Xa, UFH(UnfractionatedHep 0.95 IU/ml (0.3-0.7)
[2023-10-12 04:05] LABS: Calcium 9.4 mg/dl (8.6-10.3); Creatinine Clr Calc Pharmacy 113.3 ml/min; Est GFR (African American) 95.4 ml/min; Est GFR (Non-African American) 82.3 ml/min; Potassium 4.4 mmol/L (3.5-5.1)
[2023-10-12 04:11] LABS: Basophils # (auto) 0.05 K/uL (0.00-0.20); Basophils % (auto) 0.7 %; Eosinophils # (auto) 0.22 K/uL (0.00-0.50); Hematocrit (blood only) 38.3 % (42.0-52.0); Hemoglobin 12.9 g/dl (14.0-18.0); Immature Granulocytes # (auto) 0.04 K/uL (0.01-0.20); Immature Granulocytes % (auto) 0.5 %; Lymphocytes # (auto) 1.83 K/uL (1.20-3.40); Lymphocytes % (auto) 25.1 %; Mean Corpuscular Hemoglobin 28.4 pg (25.0-34.0); Mean Corpuscular Hgb Conc 33.7 g/dL (32.0-36.0); Mean Corpuscular Volume 84.4 fL (80.0-100.0); Mean Platelet Volume 10.4 fL (9.4-12.4); Monocytes # (auto) 0.56 K/uL (0.11-0.59); Monocytes % (auto) 7.7 %; Neutrophils # (auto) 4.59 K/uL (1.40-6.50); Platelet Count 217 K/uL (130-400); RDW Coefficient of Variation 12.6 % (11.5-14.5); RDW Standard Deviation 38.5 fL (36.4-46.3); Red Blood Count 4.54 M/uL (4.70-6.10); White Blood Count 7.29 K/ul (4.8-10.8)
[2023-10-12 04:13] LABS: ANTI-Xa, UFH(UnfractionatedHep 0.51 IU/ml (0.3-0.7)
[2023-10-12] MEDS ORDERED: HYDROmorphone INJ 0.5 MG/0.5 ML SYR IV STA (04:45)
[2023-10-12] MEDS ORDERED: oxyCODONE HCL IR 5 MG TAB (IMMEDIATE RELEASE) PO STA (08:13)
[2023-10-12] MEDS ORDERED: oxyCODONE HCL IR 5 MG TAB (IMMEDIATE RELEASE) PO PRN (08:13)
[2023-10-12] MEDS: ENOXAPARIN 100 MG/1ML SYR SQ SCH ×2 (08:14→20:23)
[2023-10-12] MEDS ORDERED: ENOXAPARIN 1 MG/KG SC SCH (09:00)
[2023-10-12] MEDS ORDERED: ENOXAPARIN INJ 120 MG/0.8 ML SYR SQ SCH (09:00)
[2023-10-12] MEDS ORDERED: ENOXAPARIN 100 MG/1ML SYR SQ SCH (09:00)
[2023-10-12] MEDS ORDERED: HYDROmorphone INJ 1 MG/ML SYRINGE IV PRN (09:58)
--- NOTE | 2023-10-12 12:02 | Ultrasound Report ---
BILATERAL LOWER EXTREMITY VENOUS DOPPLER HISTORY: Left lower extremity swelling. History of pulmonary embolus. Evaluate for DVT. PE COMPARISON STUDY: None. FINDINGS: There is normal compressibility, flow, and augmentation within the right lower extremity de ep venous system. The left common femoral and superficial femoral veins are patent. There is occlusiv e thrombus seen within the left popliteal vein, one of 2 posterior tibial veins, and peroneal veins. A few additional thrombosed deep veins are seen within the left calf. The left anterior tibial veins are patent. IMPRESSION: 1. Left lower extremity DVT as described above. 2. No evidence for a right lower extremity DVT. ACT 112: Negative or not required by law. Electronically signed by: Davian Baker M.D. 10/12/2023 12:01 PM
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
[2023-10-12] MEDS: HYDROmorphone INJ 0.5 MG/0.5 ML SYR IV PRN ×2 (17:28→20:23)
[2023-10-13] MEDS: HYDROmorphone INJ 0.5 MG/0.5 ML SYR IV PRN ×2 (04:16→07:40)
[2023-10-13 06:26] LABS: Basophils # (auto) 0.05 K/uL (0.00-0.20); Basophils % (auto) 0.8 %; Eosinophils # (auto) 0.28 K/uL (0.00-0.50); Eosinophils % (auto) 4.7 %; Hematocrit (blood only) 37.6 % (42.0-52.0); Hemoglobin 12.3 g/dl (14.0-18.0); Immature Granulocytes # (auto) 0.02 K/uL (0.01-0.20); Immature Granulocytes % (auto) 0.3 %; Lymphocytes # (auto) 1.66 K/uL (1.20-3.40); Lymphocytes % (auto) 27.6 %; Mean Corpuscular Hgb Conc 32.7 g/dL (32.0-36.0); Mean Corpuscular Volume 85.5 fL (80.0-100.0); Monocytes # (auto) 0.48 K/uL (0.11-0.59); Neutrophils # (auto) 3.52 K/uL (1.40-6.50); Neutrophils % (auto) 58.6 %; Platelet Count 239 K/uL (130-400); RDW Coefficient of Variation 12.4 % (11.5-14.5); RDW Standard Deviation 38.7 fL (36.4-46.3); White Blood Count 6.01 K/ul (4.8-10.8)
[2023-10-13 06:29] LABS: ANTI-Xa, UFH(UnfractionatedHep 0.43 IU/ml (0.3-0.7)
[2023-10-13 06:42] LABS: BUN Creatinine Ratio 15.2 (10-20); Calcium 9.5 mg/dl (8.6-10.3); Creatinine Clr Calc Pharmacy 130.7 ml/min; Est GFR (African American) 113.1 ml/min; Est GFR (Non-African American) 97.6 ml/min; Potassium 4.2 mmol/L (3.5-5.1)
[2023-10-13] MEDS: ENOXAPARIN 100 MG/1ML SYR SQ SCH (07:42)
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
[2023-10-13] MEDS ORDERED: oxyCODONE HCL IR 5 MG TAB (IMMEDIATE RELEASE) PO PRN (08:44)
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
== END 2023-10-13 12:02 | disposition home or self-care (01) | DRG 176 ==
LOC: ED 10:27 → SUATTDRO 13:43 → 2N 13:43